=== PATIENT | male | born 1965 | race Caucasian/White ===

== ENCOUNTER → 2017-07-07 | Outpatient (CLI) | payer MEDICAID | LOC: CARD 13:53 | PROVIDERS: ATTEND Internal Medicine Cardiovascular Disease | DX: I48.91 Unspecified atrial fibrillation (principal) | CPT/HCPCS: 93306 ==

== ENCOUNTER → 2017-08-04 | Outpatient (CLI) | payer MEDICAID ==
[~2017-08-04] MED LIST: CATHETER FLUSH 10 ML SYR IV PRN; REGADENOSON 0.4 MG/5 ML SYR (LEXISCAN) IV ONE; RT-ALBUTEROL SULF 2.5 MG/3 ML PRE-MIX VIAL INH ONE
[2017-08-04 09:07] VITALS: BP 120/77
--- NOTE | 2017-08-04 23:36 | STRESS TEST ---
DATE OF SERVICE: 08/04/2017 LEXISCAN MYOVIEW STRESS TEST REPORT INDICATION: Atrial fibrillation. FINDINGS: Baseline heart rate is 64. Baseline EKG is sinus rhythm with normal axis with no ischemic changes. Baseline blood pressure 120/77. In summary, the patient received 10.95 mCi of technetium-99 Myoview and the resting images were obtained. Then, the patient received 0.4 mg of Lexiscan followed by 29.7 mCi of technetium-99 Myoview. Throughout the test, there were no EKG changes. The resting and stress images were reviewed and compared in the short axis, horizontal long axis, and vertical long axis views. Review of the images showed diaphragmatic attenuation with fixed defect involving the inferoapical segment. No significant ischemia was noted. SSS is 4, SDS is zero, TID value 1.05. On the gated images, the left ventricle appeared to be of normal size with normal contractility. Calculated ejection fraction is 64%. CONCLUSION: 1. The patient tolerated Lexiscan well. 2. Diaphragmatic attenuation with typical male pattern with no ischemia or infarction on SPECT images. 3. Normal left ventricular size with normal contractility. Calculated ejection fraction is 64%. Job ID: [id number] DocumentID: [id number] Dictated Date: 08/04/2017 17:20:17 Basin Cleaner Date: 08/04/2017 23:35:51 Dictated By: CRISTHIAN WEBB MD
== END ==
LOC: CARD 07:12
PROVIDERS: ATTEND Internal Medicine Cardiovascular Disease
DX: I48.91 Unspecified atrial fibrillation (principal)
CPT/HCPCS: 78452; 93017; 94640

== ENCOUNTER → 2018-05-24 | Outpatient (CLI) | payer MEDICAID | LOC: RT 11:23 | PROVIDERS: ATTEND Nurse Practitioner Family | DX: G47.33 Obstructive sleep apnea (adult) (pediatric) (principal); R06.00 Dyspnea, unspecified; J44.9 Chronic obstructive pulmonary disease, unspecified; Z72.0 Tobacco use ==

== ENCOUNTER → 2018-06-08 | Outpatient (CLI) | payer MEDICAID ==
[~2018-06-08] MED LIST changes: -CATHETER FLUSH 10 ML SYR IV PRN; -REGADENOSON 0.4 MG/5 ML SYR (LEXISCAN) IV ONE
--- NOTE | 2018-06-08 13:38 | Diagnostic Imaging Report ---
PROCEDURE: CT chest without contrast. TECHNIQUE: Multiple contiguous axial images were obtained through the chest without the use of intravenous contrast. INDICATION: Difficulty breathing and tobaccoism. COMPARISON: No prior studies are available for comparison. FINDINGS: Mediastinal and hilar evaluation is limited without intravenous contrast but no gross abnormality is seen. No pericardial or pleural fluid is detected. The central airways are patent. No parenchymal mass, nodule or infiltrate is seen. There is some scarring or subsegmental atelectasis in the lingula. The upper abdomen is unremarkable. The bony structures are not acute. IMPRESSION: Unremarkable noncontrast CT of the chest. Dictated by: Dictated on workstation # [id number]
== END ==
LOC: RAD 12:12
PROVIDERS: ATTEND Nurse Practitioner Family
DX: J44.9 Chronic obstructive pulmonary disease, unspecified (principal); G47.33 Obstructive sleep apnea (adult) (pediatric); Z72.0 Tobacco use
CPT/HCPCS: 71250; 94010; 94060; 94726; 94729

== ENCOUNTER 2018-06-14 21:00 | Outpatient (CLI) | payer MEDICAID ==
[2018-05-24 11:48] LABS: ABG BASE EXCESS 1.3 MMOL/L (-2.5-2.5); ABG OXYGEN SATURATION 97 % (94-100); ABG PCO2 36 MMHG (35-45); ABG PH 7.45 (7.37-7.43); ABG PO2 77 MMHG (79-93); ABG TCO2 26.3 MMOL/L (21.0-31.0)
[2018-05-24 11:53] LABS: ALLENS TEST YES-POS; INSPIRED O2 RA; PATIENT TEMP 96.9; VENTILATOR NO
== END 2018-06-15 07:00 | disposition home or self-care (01) ==
LOC: SLEEP 21:00
PROVIDERS: ATTEND Nurse Practitioner Family
DX: G47.33 Obstructive sleep apnea (adult) (pediatric) (principal); R06.00 Dyspnea, unspecified; J44.9 Chronic obstructive pulmonary disease, unspecified; Z72.0 Tobacco use
CPT/HCPCS: 82805; 95810

== ENCOUNTER 2018-06-24 07:48 | Outpatient (CLI) | payer MEDICAID ==
[~2018-06-24] VITALS: Ht 182.9 cm; Wt 101.6 kg
[2018-06-24] MEDS ORDERED: ALB0.5V INH (11:43)
[2018-06-24] MEDS ORDERED: METO-333 PO (11:43)
[2018-06-24] MEDS ORDERED: MELO7.5T46 PO (11:43)
[2018-06-24] MEDS ORDERED: RT-ALBUINH IH (11:43)
[2018-06-24] MEDS ORDERED: FOLI1TAB24 PO (11:43)
[2018-06-24] MEDS ORDERED: APIX5TAB PO (11:43)
[2018-06-24] MEDS ORDERED: ATOR20TA66 PO (11:43)
[2018-06-24] MEDS ORDERED: FLUT1DIS26 IH (11:43)
[2018-06-24] MEDS ORDERED: NICO1PAT34 TD (11:43)
== END 2018-06-24 11:45 | disposition home or self-care (01) ==
LOC: PREOP 07:48
PROVIDERS: ATTEND Internal Medicine Critical Care Medicine
DX: Z01.818 Encounter for other preprocedural examination (principal)

== ENCOUNTER 2018-06-29 07:48 | Day surgery (SDC) | payer MEDICAID ==
[~2018-06-29] VITALS: Ht 182.9 cm; Wt 101.6 kg
[~2018-06-29 07:48] MED LIST changes: +ALB0.5V INH; +APIX5TAB PO; +ATOR20TA66 PO; +FLUT1DIS26 IH; +FOLI1TAB24 PO; +MELO7.5T46 PO; +METO-333 PO; +NICO1PAT34 TD; +RT-ALBUINH IH; -RT-ALBUTEROL SULF 2.5 MG/3 ML PRE-MIX VIAL INH ONE
[2018-06-29] MEDS ORDERED: LIDOCAINE JELLY 2% (XYLOCAINE) 30 ML TUBE TOP ONE (07:49)
[2018-06-29] MEDS ORDERED: LIDOCAINE PF 2% 5 ML (XYLOCAINE) VIAL INJ ONE (07:49)
[2018-06-29] MEDS ORDERED: LIDOCAINE PF 1% 2 ML VIAL (OR ONLY) IJ ONE (07:49)
[2018-06-29] MEDS ORDERED: LACTATED RINGERS 1,000 ML IV ONE (07:50)
[2018-06-29] MEDS ORDERED: LACTATED RINGERS 1,000 ML IV STA (08:25)
[2018-06-29] MEDS ORDERED: fentaNYL INJECTION 100 MCG/2 ML AMP IVP ONE (08:30)
[2018-06-29] MEDS ORDERED: MIDAZOLAM 2 MG/2 ML (VERSED) VIAL IVP ONE (08:30)
[2018-06-29 08:32] VITALS: BP 130/81
[2018-06-29] MEDS ORDERED: MIDAZOLAM 2 MG/2 ML (VERSED) VIAL ONE ×4 (08:35)
[2018-06-29] MEDS ORDERED: fentaNYL INJECTION 100 MCG/2 ML AMP ONE ×2 (08:36)
--- NOTE | 2018-06-29 08:37 | Progress Note-Pre Operative ---
Pre-Operative Progress Note H&P Reviewed The H&P was reviewed, patient examined and no changes noted. Date Seen by Provider: Jun 29, 2018 Time Seen by Provider: 08:37 Date H&P Reviewed: Jun 29, 2018 Time H&P Reviewed: 08:37 Pre-Operative Diagnosis: infiltrate. AMADEO AMIN DO Jun 29, 2018 08:37
--- NOTE | 2018-06-29 08:38 | Progress Note-Pre Operative ---
Pre-Operative Progress Note H&P Reviewed The H&P was reviewed, patient examined and no changes noted. Time Seen by Provider: 08:38 Date H&P Reviewed: Jun 29, 2018 Time H&P Reviewed: 08:37 Pre-Operative Diagnosis: infiltrate AMADEO AMIN DO Jun 29, 2018 08:38
--- NOTE | 2018-06-29 08:39 | Pulmonary Procedures ---
Pulmonary Procedures Date of Procedure Date of Service: Jun 29, 2018 Bronch Bronchoscopy with fluoroscopy bronchoalveolar lavage (BAL), transbronchial washes and, transbronchial brushes. Preop DX Hemoptysis Postop DX: No endobronchial mass noted. No signs of hemoptysis. Complications: none After informed consent obtained and formal time out pt was sedated using Fentanyl and Versed. Bronchoscope was advanced through the nare and vocal cords. 1% lidocaine was used to anesthetize vocal cords, epiglottis, hortensia, and left/right main stem bronchus. An anatomical tour was undertaken down to the segmental bronchi bilaterally. No endobronchial lesions noted.with fluoroscopy bronchoalveolar lavage (BAL), transbronchial washes and, transbronchial brushes. Pt tolerated procedure well. No complications noted. Stat CXR is pending. AMADEO AMIN DO Jun 29, 2018 08:38
--- OUTSIDE RECORDS SUMMARY | 2018-06-29 08:58 | XMS REPORT ---
Author Author MAITE PALMER Organization [facility] Address [address] [place] [address] Care Team Providers Care Data Clerk Name Role Phone MAITE PALMER Unavailable PROBLEMS Type Condition ICD9-CM Code CNA86-OY Code Onset Dates Condition Status SNOMED Code Problem Dependence on other enabling machines and devices Z99.89 Active 576890540 Problem Essential hypertension I10 Active 07820670 Problem Coronary artery disease involving craig coronary artery of craig heart without angina pectoris I25.10 Active 8260115022623 Problem Pulmonary nodules R91.8 Active 381070450 Problem Obstructive sleep apnea (adult) (pediatric) G47.33 Active 57320209 Problem Mucopurulent chronic bronchitis J41.1 Active 78023732 Problem Tobacco abuse Z72.0 Active 740205190 Problem Mixed hyperlipidemia E78.2 Active 557414411 Problem Other chronic pain G89.29 Active 01055312 Problem Prediabetes R73.03 Active 313454303 Problem Atrial fibrillation, unspecified type I48.91 Active 80770101 Problem Cervicalgia M54.2 Active 50356202 Problem Dorsalgia, unspecified M54.9 Active 904444980 ALLERGIES No Information ENCOUNTERS Encounter Location Date Diagnosis [place] [id number] [place] [address]20[address] Apr, Atypical pigmented skin lesion L81.9 [facility] [id number] [place] [address] 60[address] 2060 Apr, [place] [id number] [place] [address] 64789- 0489 Apr, Essential hypertension I10 ; Mucopurulent chronic bronchitis J41.1 ; Coronary artery disease involving craig coronary artery of craig heart without angina pectoris I25.10 ; Mixed hyperlipidemia E78.2 ; Bilateral impacted cerumen H61.23 ; Atypical pigmented skin lesion L81.9 and Encounter for immunization Z23 [facility] [id number] [place] [address] 32465- 6128 Apr, Atrial fibrillation, unspecified type I48.91 ; Obstructive sleep apnea (adult) (pediatric) G47.33 ; Mixed hyperlipidemia E78.2 and Coronary artery disease involving craig coronary artery of craig heart without angina pectoris I25.10 [facility] [id number] [place] [address] 60203- 8795 Apr, [facility] [id number] [place] [address] 34898- 8403 November, [facility] [id number] [place] [address] 36011- 5476 November, [facility] [id number] [place] [address] 69925- 1215 November, [facility] [id number] [place] [address] 59953- 1579 November, [facility] [id number] [place] [address] 27764- 0867 November, [facility] [id number] [place] [address] 63408- 8779 November, [facility] [id number] [place] [address] 56072- 4883 November, Prediabetes R73.03 ; Other chronic pain G89.29 ; Dorsalgia, unspecified M54.9 ; Cervicalgia M54.2 ; Mucopurulent chronic bronchitis J41.1 ; Tobacco abuse Z72.0 ; Coronary artery disease involving craig coronary artery of craig heart without angina pectoris I25.10 and Atrial fibrillation, unspecified type I48.91 [facility] [id number] [place] [address] 64184- 9868 Oct, [facility] [id number] [place] [address] 89297- 8771 Sep, [facility] [address] [address] Aug, [place] [address] [place] [id number] [place] [address] 71765- 0819 Aug, Obstructive sleep apnea (adult) (pediatric) G47.33 ; Coronary artery disease involving craig coronary artery of craig heart without angina pectoris I25.10 ; Tobacco abuse Z72.0 ; Essential hypertension I10 and Pre-diabetes R73.03 [place] [address] [place] [id number] [place] [address] 66519- 2054 Jul, [place] [address] [place] [id number] [place] [address] 65093- 7751 Jul, Encounter for immunization Z23 [place] [id number] [place] [address] 75199- 9229 10 May, 2017 Atrial fibrillation, unspecified type I48.91 ; Chest pain, unspecified type R07.9 ; Coronary artery disease involving craig coronary artery of craig heart without angina pectoris I25.10 and Essential hypertension I10 [place] [address] [address] Mar, Dependence on other enabling machines and devices Z99.89 ; Obstructive sleep apnea (adult) (pediatric) G47.33 ; Mucopurulent chronic bronchitis J41.1 ; Tobacco abuse Z72.0 and Coronary artery disease involving craig coronary artery of craig heart without angina pectoris I25.10 IMMUNIZATIONS No Known Immunizations SOCIAL HISTORY Never Assessed REASON FOR VISIT referral PLAN OF CARE VITAL SIGNS MEDICATIONS No Known Medications RESULTS No Results PROCEDURES No Known procedures INSTRUCTIONS MEDICATIONS ADMINISTERED No Known Medications MEDICAL (GENERAL) HISTORY Type Description Date Medical History Hypertension Medical History Myocardial infarction x5 Medical History Atrial fibrillation Medical History CVA Medical History Hyperlipidemia Medical History Anxiety Medical History COPD Medical History Sleep Apnea Medical History Disc deterioration lumbar spine Medical History Bone spurs cervical spine Medical History Arthritis Medical History Prediabetes Surgical History Appendectomy Surgical History Tonsillectomy Surgical History Heart catheterization Hospitalization History past surgery Hospitalization History Myocardial infarction multiple times Hospitalization History mild cva 2 years ago Hospitalization History COPD exacerbation 2016
--- OUTSIDE RECORDS SUMMARY | 2018-06-29 08:58 | XMS REPORT | CCD ---
Author Author HILARY AMARO Organization Unknown Address [address] [place] [address] Care Team Providers Care Wedger Machine Name Role Phone BRITTNEE OZUNA DO Attphys Allergies Unknown or Not Available. Active Medications Unknown or Not Available. Problems Unknown or Not Available. Procedures Procedure Code Procedure Type Date CT HEAD W/O CONTRAST 782229343 SNOMED CT 02/21/2017 TROPONIN-I ADV 519446037 SNOMED CT 02/21/2017 COMPREHENSIVE METABOLIC PANEL 983322787 SNOMED CT 2016 CBC W/ AUTO DIFF (RFLX MAN DIFF IF IND) 9814776 SNOMED CT 02/21/2017 ^CBC W/AUTO DIFF 0878067 SNOMED CT 02/21/2017 Results COMPREHENSIVE METABOLIC PANEL - Collect Date/Time: 02/21/2017 16:28 Test Name Code Test Result Test Units Test Ref Range GLUCOSE 2345-7 99 MG/DL L=70 H=100 SODIUM 2951-2 140 MEQ/L L=135 H=148 POTASSIUM 2823-3 4.0 MEQ/L L=3.5 H=5.3 CHLORIDE 2075-0 105 MEQ/L L=96 H=110 CO2 2028-9 28 MEQ/L L=22 H=29 BUN 3094-0 10 MG/DL L=8 H=22 CREATININE 2160-0 0.9 MG/DL L=0.6 H=1.6 SGOT/AST 1920-8 19 IU/L L=10 H=40 SGPT/ALT 1742-6 32 IU/L L=8 H=54 ALK PHOS 6768-6 74 IU/L L=35 H=115 TOTAL PROTEIN 2885-2 7.0 G/DL L=5.5 H=8.5 ALBUMIN 1751-7 3.8 G/DL L=3.1 H=5.4 TOTAL BILI 1975-2 0.5 MG/DL L=0.0 H=1.5 CALCIUM 32230-6 8.9 MG/DL L=8.2 H=10.6 AGE 51 yrs GFR NonAA 88 GFR AA 107 eGFR >60 N/A eGFR AA* >60 N/A CBC W/ AUTO DIFF (RFLX MAN DIFF IF IND) - Collect Date/Time: 02/21/2017 16:28 Test Name Code Test Result Test Units Test Ref Range WBC 73076-0 7.1 TH/CMM L=4.5 H=10.8 RBC 789-8 5.25 ML/CMM L=4.70 H=6.10 HGB 718-7 16.0 G/DL L=14.0 H=18.0 HCT 4544-3 47.5 % L=42.0 H=52.0 MCV 91 FL L=81 H=99 MCH 30.5 PG L=27.0 H=33.0 MCHC 33.7 G/DL L=31.0 H=36.0 RDW SD 43 FL L=36 H=50 RDW CV 13.0 % L=0.0 H=14.8 MPV 8.8 FL L=9.3 H=12.5 PLT 777-3 281 TH/CMM L=130 H=440 NRBC# 0.00 TH/CMM L=0.00 H=0.00 NRBC% 0.0 /100WBC L=0.0 H=2.0 %NEUT 63.6 % %LYMP 23.5 % %MONO 8.9 % %EOS 3.5 % %BASO 0.4 % #NEUT 4.52 TH/CMM L=2.10 H=8.20 #LYMP 1.67 TH/CMM L=0.90 H=5.20 #MONO 0.63 TH/CMM L=0.16 H=1.00 #EOS 0.25 TH/CMM L=0.00 H=0.80 #BASO 0.03 TH/CMM L=0.00 H=0.20 MANUAL DIFF NOT IND N/A TROPONIN-I ADV - Collect Date/Time: 02/21/2017 16:28 Test Name Code Test Result Test Units [place] [address]-0 <0.04 ng/mL L=0.04 H= 0.40 Encounters Encounter Diagnosis Diagnosis Code Start Date Epistaxis R040 02/21/2017 Function Status Unknown or Not Available. History of Immunizations Unknown or Not Available. Plan of Treatment Unknown or Not Available. Social History Smoking Status Code Start Date End Date Current every day smoker 241777061 Vital Signs Unknown or Not Available. Function Status Unknown or Not Available. Goals Unknown or Not Available. ASSESSMENTS Unknown or Not Available. Health Concerns Section Unknown or Not Available.
--- OUTSIDE RECORDS SUMMARY | 2018-06-29 08:58 | XMS REPORT ---
Author Author MAITE PALMER Organization [facility] Address [address] [place] [address] Care Team Providers Care Cut Out Worker Name Role Phone MAITE PALMER Unavailable PROBLEMS Type Condition ICD9-CM Code [id number] Code Onset Dates Condition Status SNOMED Code Problem Dependence on other enabling machines and devices Z99.89 Active 810308617 Problem Essential hypertension I10 Active 51128742 Problem Coronary artery disease involving shoshone-paiute coronary artery of shoshone-paiute heart without angina pectoris I25.10 Active 5747389301844 Problem Pulmonary nodules R91.8 Active 747326757 Problem Obstructive sleep apnea (adult) (pediatric) G47.33 Active 03147179 Problem Mucopurulent chronic bronchitis J41.1 Active 34492593 Problem Tobacco abuse Z72.0 Active 926001655 Problem Mixed hyperlipidemia E78.2 Active 061045504 Problem Other chronic pain G89.29 Active 91461059 Problem Prediabetes R73.03 Active 466360984 Problem Atrial fibrillation, unspecified type I48.91 Active 98340808 Problem Cervicalgia M54.2 Active 36398716 Problem Dorsalgia, unspecified M54.9 Active 726030040 ALLERGIES Substance Reaction Event Type Date Status Penicillin V Potassium Unknown Drug Allergy Apr, Active Morphine Sulfate Unknown Drug Allergy Apr, Active Aspirin swelling Drug Allergy Apr, Active Bee stings Unknown Non Drug Allergy Apr, Active lemon Unknown Non Drug Allergy Apr, Active ENCOUNTERS Encounter Location Date Diagnosis [facility] [address] [facility] [id number] [address] Apr, Atypical pigmented skin lesion L81.9 [facility] [address] [id number] [address] Apr, [facility] [id number] [address] Apr, Essential hypertension I10 ; Mucopurulent chronic bronchitis J41.1 ; Coronary artery disease involving shoshone-paiute coronary artery of shoshone-paiute heart without angina pectoris I25.10 ; Mixed hyperlipidemia E78.2 ; Bilateral impacted cerumen H61.23 ; Atypical pigmented skin lesion L81.9 and Encounter for immunization Z23 [facility] [id number] [place] [address] 55237- 495[address] 18 Apr, 2018 Atrial fibrillation, unspecified type I48.91 ; Obstructive sleep apnea (adult) (pediatric) G47.33 ; Mixed hyperlipidemia E78.2 and Coronary artery disease involving shoshone-paiute coronary artery of shoshone-paiute heart without angina pectoris I25.10 [facility] [id number] [place] [address] 06104- 4612 Apr, [facility] [id number] [place] [address] 77043- 5391 November, [facility] [id number] [place] [address] 47152- 3106 November, [facility] [id number] [place] [address] 36997- 8981 November, [facility] [id number] [place] [address] 34170- 8208 November, [facility] [id number] [place] [address] 00321- 7891 November, [facility] [id number] [place] [address] 43468- 5744 November, [facility] [id number] [place] [address] 85071- 9501 November, Prediabetes R73.03 ; Other chronic pain G89.29 ; Dorsalgia, unspecified M54.9 ; Cervicalgia M54.2 ; Mucopurulent chronic bronchitis J41.1 ; Tobacco abuse Z72.0 ; Coronary artery disease involving shoshone-paiute coronary artery of shoshone-paiute heart without angina pectoris I25.10 and Atrial fibrillation, unspecified type I48.91 [facility] [id number] [address] Oct, [place] [address] [id number] [place] [address] 99313- 0554 Sep, [place] [address] [address] [id number] [place] [address] 70317- 6117 Aug, [place] [address] [address] [id number] [place] [address] 63693- 5807 Aug, Obstructive sleep apnea (adult) (pediatric) G47.33 ; Coronary artery disease involving shoshone-paiute coronary artery of shoshone-paiute heart without angina pectoris I25.10 ; Tobacco abuse Z72.0 ; Essential hypertension I10 and Pre-diabetes R73.03 [place] [id number] [place] [address] 90[address]- [address] Jul, [place] [address] [address] [id number] [place] [address] 33841- 7222 Jul, Encounter for immunization Z23 [place] [address] [address] [id number] [place] [address] 16418- 1190 10 May, 2017 Atrial fibrillation, unspecified type I48.91 ; Chest pain, unspecified type R07.9 ; Coronary artery disease involving shoshone-paiute coronary artery of shoshone-paiute heart without angina pectoris I25.10 and Essential hypertension I10 [place] [address] [id number] [place] [address] 38715- 1630 06 Mar, 2017 Dependence on other enabling machines and devices Z99.89 ; Obstructive sleep apnea (adult) (pediatric) G47.33 ; Mucopurulent chronic bronchitis J41.1 ; Tobacco abuse Z72.0 and Coronary artery disease involving shoshone-paiute coronary artery of shoshone-paiute heart without angina pectoris I25.10 IMMUNIZATIONS No Known Immunizations SOCIAL HISTORY Never Assessed REASON FOR VISIT 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 PLAN OF CARE Activity Details Follow Up 1 Week with Saul for suture removal Reason: Pending Test PATHOLOGY REPORT VITAL SIGNS Height 72 in 2018-05-24 Weight 221.0 lbs 2018-05-24 Temperature 97.9 degrees Fahrenheit 2018-05-24 Heart Rate 78 bpm 2018-05-24 Respiratory Rate 18 2018-05-24 BMI 29.97 kg/m2 2018-05-24 Blood pressure systolic 116 mmHg 2018-05-24 Blood pressure diastolic 76 mmHg 2018-05-24 MEDICATIONS Medication Instructions Dosage Frequency Start Date End Date Duration Status Clopidogrel Bisulfate 75 MG Orally Once a day 1 tablet 24h Active Albuterol Sulfate (2.5 MG/3ML) 0.083% Inhalation 2 times a day 3 ml 12h Active Lisinopril 10 mg Orally Once a day 1 tablet 24h Active HydrOXYzine HCl 25 MG Orally every 8 hrs 1 tablet as needed 8h Active Proventil HFA 108 (90 Base) MCG/ACT Inhalation every 4 hrs 2 puffs as needed 4h 17 Active Atorvastatin Calcium 40 mg Orally Once a day 1 tablet 24h November, 30 day(s) Active Stiolto Respimat 2.5-2.5 MCG/ACT Inhalation Once a day 2 puffs 24h Active Nitroglycerin 0.4 MG DISSOLVE ONE TABLET UNDER TONGUE EVERY 5 MINUTES NEEDED FOR CHEST PAIN. DO NOT EXCEED A TOTAL OF 3 DOSES IN 15 MINUTES. 8 Active Folic Acid 1 MG Orally Once a day 1 tablet 24h Active Metoprolol Tartrate 25 MG TAKE ONE TABLET BY MOUTH TWICE DAILY WITH FOOD 90 Active Mobic 7.5 mg Orally Once a day 1 tablet 24h 30 Active Vitamin B-1 100 mg Orally Once a day 1 tablet 24h Active Pantoprazole Sodium 40 MG Orally Once a day 1 tablet 24h Active Ipratropium-Albuterol 0.5-2.5 (3) MG/3ML Inhalation every 6 hrs 3 ml 6h 8 Active Asmanex HFA 200 MCG/ACT Inhalation Twice a day 2 puffs 12h Active Eliquis 5 mg Orally twice daily 1 tablet 30 Active RESULTS No Results PROCEDURES Procedure Date Ordered Result Body Site BIOPSY OF SKIN LESION May 24, 2018 INSTRUCTIONS MEDICATIONS ADMINISTERED No Known Medications MEDICAL [...]
--- OUTSIDE RECORDS SUMMARY | 2018-06-29 08:58 | XMS REPORT ---
Author Author MAITE PALMER Organization [facility] Address [address] [place] [address] Care Team Providers Care Telegraph Service Rater Name Role Phone MAITE PALMER Unavailable PROBLEMS Type Condition ICD9-CM Code ZUN31-KP Code Onset Dates Condition Status SNOMED Code Problem Dependence on other enabling machines and devices Z99.89 Active 762737601 Problem Coronary artery disease involving [place] si[place] coronary artery of assin[place] and sioux heart without angina pectoris I25.10 Active 4238217934160 Problem Mucopurulent chronic bronchitis J41.1 Active 37974318 Problem Pulmonary nodules R91.8 Active 786962916 Problem Obstructive sleep apnea (adult) (pediatric) G47.33 Active 75404276 Problem Tobacco abuse Z72.0 Active 029583057 Problem Cervicalgia M54.2 Active 73239216 Problem Dorsalgia, unspecified M54.9 Active 196000677 Problem Atrial fibrillation, unspecified type I48.91 Active 48898351 Problem Essential hypertension I10 Active 16870377 Problem Other chronic pain G89.29 Active 46910745 Problem Prediabetes R73.03 Active 722365642 ALLERGIES No Information ENCOUNTERS Encounter Location Date Diagnosis [facility] [id number] [address] Apr, [facility] [address], [place] [address] Apr, [facility] [address], [place] [address] November, [facility] [address], [place] [address] November, [facility] [id number], [place] [address] November, [facility] [id number], [place] [address] November, [facility] [id number] [place] [address] 94302- 6857 November, [facility] [id number] [place] [address] 71891- 3833 November, [place] [id number] [place] [address] 20034- 7648 November, Prediabetes R73.03 ; Other chronic pain G89.29 ; Dorsalgia, unspecified M54.9 ; Cervicalgia M54.2 ; Mucopurulent chronic bronchitis J41.1 ; Tobacco abuse Z72.0 ; Coronary artery disease involving [place] and si[place] coronary artery of assin[place] and sioux heart without angina pectoris I25.10 and Atrial fibrillation, unspecified type I48.91 [place] [id number] [place] [address] 71768- 3999 Oct, [place] [id number] [place] [address] 21987- 4717 Sep, [place] [id number] [place] [address] 20306- 9907 Aug, [place] [id number] [place] [address] 68655- 8956 Aug, Obstructive sleep apnea (adult) (pediatric) G47.33 ; Coronary artery disease involving [place] coronary artery of [place] and sioux heart without angina pectoris I25.10 ; Tobacco abuse Z72.0 ; Essential hypertension I10 and Pre-diabetes R73.03 [place] [id number] [place] [address] 14508- 6085 Jul, [place] [id number] [place] [address] 92010- 2403 Jul, Encounter for immunization Z23 [place] [id number] [place] [address] 29957- 8986 May, Atrial fibrillation, unspecified type I48.91 ; Chest pain, unspecified type R07.9 ; Coronary artery disease involving [place] si[place] coronary artery of assin[place] and sioux heart without angina pectoris I25.10 and Essential hypertension I10 [facility] [address] [facility] [id number] [place] [address] Mar, Dependence on other enabling machines and devices Z99.89 ; Obstructive sleep apnea (adult) (pediatric) G47.33 ; Mucopurulent chronic bronchitis J41.1 ; Tobacco abuse Z72.0 and Coronary artery disease involving [place] and si[place] coronary artery of assin[place] and sioux heart without angina pectoris I25.10 IMMUNIZATIONS No Known Immunizations SOCIAL HISTORY Never Assessed REASON FOR VISIT Refill Request PLAN OF CARE VITAL SIGNS MEDICATIONS Medication Instructions Dosage Frequency Start Date End Date Duration Status Mobic 7.5 mg Orally Once a day 1 tablet 24h 30 Active Ipratropium-Albuterol 0.5-2.5 (3) MG/3ML Inhalation every 6 hrs 3 ml 6h 8 Active RESULTS No Results PROCEDURES No Known procedures [...]
--- OUTSIDE RECORDS SUMMARY | 2018-06-29 08:58 | XMS REPORT ---
Author Author MAITE PALMER Organization [facility] [place] Address [address] [place] [address] Care Team Providers Care Weapons Officer [employer] Name Role Phone MAITE PALMER Unavailable PROBLEMS Type Condition ICD9-CM Code GRX27-SQ Code Onset Dates Condition Status SNOMED Code Problem Dependence on other enabling machines and devices Z99.89 Active 545536626 Problem Essential hypertension I10 Active 97735027 Problem Coronary artery disease involving [place] coronary artery of [place] heart without angina pectoris I25.10 Active 6766880157413 Problem Pulmonary nodules R91.8 Active 602628697 Problem Obstructive sleep apnea (adult) (pediatric) G47.33 Active 42358874 Problem Mucopurulent chronic bronchitis J41.1 Active 81838974 Problem Tobacco abuse Z72.0 Active 681351120 Problem Mixed hyperlipidemia E78.2 Active 860923599 Problem Other chronic pain G89.29 Active 88189961 Problem Prediabetes R73.03 Active 717097166 Problem Atrial fibrillation, unspecified type I48.91 Active 57731108 Problem Cervicalgia M54.2 Active 95245374 Problem Dorsalgia, unspecified M54.9 Active 725388819 ALLERGIES No Information ENCOUNTERS Encounter Location Date Diagnosis [facility] [place] [id number] [place] [address] 30941- 0654 May, [facility] [place] [id number] [place] [address] 01375- 3906 Apr, Atypical pigmented skin lesion L81.9 [facility] [place] [id number] [place] [address] 52304- 8443 Apr, [facility] [place] [id number], [place] [address] Apr, Essential hypertension I10 ; Mucopurulent chronic bronchitis J41.1 ; Coronary artery disease involving [place] coronary artery of [place] heart without angina pectoris I25.10 ; Mixed hyperlipidemia E78.2 ; Bilateral impacted cerumen H61.23 ; Atypical pigmented skin lesion L81.9 and Encounter for immunization Z23 [facility] [place] [id number] [place] [address] 91613- 3615 Apr, Atrial fibrillation, unspecified type I48.91 ; Obstructive sleep apnea (adult) (pediatric) G47.33 ; Mixed hyperlipidemia E78.2 and Coronary artery disease involving [place] coronary artery of [place] heart without angina pectoris I25.10 [facility] [place] [id number] [place] [address] 30980- 4981 Apr, [facility] [place] [id number] [place] [address] 23303- 0683 November, [facility] [place] [id number] [place] [address] 58606- 9157 November, [facility] [place] [id number] [place] [address] 80438- 1175 November, [facility] [place] [id number] [place] [address] 60992- 9599 November, [facility] [place] [id number] [place] [address] 27607- 9280 November, [facility] [place] [id number] [place] [address] 35551- 4013 November, [facility] [place] [id number] [place] [address] 53163- 7438 November, Prediabetes R73.03 ; Other chronic pain G89.29 ; Dorsalgia, unspecified M54.9 ; Cervicalgia M54.2 ; Mucopurulent chronic bronchitis J41.1 ; Tobacco abuse Z72.0 ; Coronary artery disease involving [place] coronary artery of [place] heart without angina pectoris I25.10 and Atrial fibrillation, unspecified type I48.91 [facility] [place] [id number] [place] [address] 02295- 1986 Oct, [facility] [place] [address] [place] [address] 96355- 7748 Sep, [place] [id number] [place] [address] 85616- 4309 Aug, [place] [id number] [place] [address] 17651- 4488 Aug, Obstructive sleep apnea (adult) (pediatric) G47.33 ; Coronary artery disease involving [place] coronary artery of [place] heart without angina pectoris I25.10 ; Tobacco abuse Z72.0 ; Essential hypertension I10 and Pre-diabetes R73.[address] [address]807- 5318 Jul, [place] [id number] [place] [address] 08166- 2917 Jul, Encounter for immunization Z23 [address] 22[address]- 7559 10 May, 2017 Atrial fibrillation, unspecified type I48.91 ; Chest pain, unspecified type R07.9 ; Coronary artery disease involving [place] coronary artery of [place] heart without angina pectoris I25.10 and Essential hypertension I10 [address] [id number] [place] [address] 71461- 3146 06 Mar, 2017 Dependence on other enabling machines and devices Z99.89 ; Obstructive sleep apnea (adult) (pediatric) G47.33 ; Mucopurulent chronic bronchitis J41.1 ; Tobacco abuse Z72.0 and Coronary artery disease involving [place] coronary artery of [place] heart without angina pectoris I25.10 IMMUNIZATIONS No Known Immunizations SOCIAL HISTORY Never Assessed REASON FOR VISIT suture removal- did not remove sutures due to them already falling out. Cleaned area and let pt go. BRENDA Starkey PLAN OF CARE VITAL SIGNS MEDICATIONS Medication Instructions Dosage Frequency Start Date End Date Duration Status Atorvastatin Calcium 40 mg Orally Once a day 1 tablet 24h November, 30 day(s) Unknown Albuterol Sulfate (2.5 MG/3ML) 0.083% Inhalation 2 times a day 3 ml 12h Unknown Asmanex HFA 200 MCG/ACT Inhalation Twice a day 2 puffs 12h Unknown Stiolto Respimat 2.5-2.5 MCG/ACT Inhalation Once a day 2 puffs 24h Unknown Lisinopril 10 mg Orally Once a day 1 tablet 24h Unknown Metoprolol Tartrate 25 MG TAKE ONE TABLET BY MOUTH TWICE DAILY WITH FOOD 90 Unknown Eliquis 5 mg Orally twice daily 1 tablet 30 Unknown Vitamin B-1 100 mg Orally Once a day 1 tablet 24h Unknown HydrOXYzine HCl 25 MG Orally every 8 hrs 1 tablet as needed 8h Unknown Folic Acid 1 MG Orally Once a day 1 tablet 24h Unknown Mobic 7.5 mg Orally Once a day 1 tablet 24h 30 Unknown Clopidogrel Bisulfate 75 MG Orally Once a day 1 tablet 24h Unknown Pantoprazole Sodium 40 MG Orally Once a day 1 tablet 24h Unknown Nitroglycerin 0.4 MG DISSOLVE ONE TABLET UNDER TONGUE EVERY 5 MINUTES NEEDED FOR CHEST PAIN. DO NOT EXCEED A TOTAL OF 3 DOSES IN 15 MINUTES. 8 Unknown Ipratropium-Albuterol 0.5-2.5 (3) MG/3ML Inhalation every 6 hrs 3 ml 6h 8 Unknown Proventil HFA 108 (90 Base) MCG/ACT Inhalation every 4 hrs 2 puffs as needed 4h 17 Unknown RESULTS No Results PROCEDURES No Known procedures [...]
--- OUTSIDE RECORDS SUMMARY | 2018-06-29 08:59 | XMS REPORT ---
Author Author MAITE PALMER Organization [facility] Address [address] [place] [address] Care Team Providers Care Brigadier Name Role Phone MAITE PALMER Unavailable PROBLEMS Type Condition ICD9-CM Code QQO81-LY Code Onset Dates Condition Status SNOMED Code Problem Dependence on other enabling machines and devices Z99.89 Active 641428176 Problem Coronary artery disease involving [place] coronary artery of [place] heart without angina pectoris I25.10 Active 2865886658033 Problem Mucopurulent chronic bronchitis J41.1 Active 76128554 Problem Pulmonary nodules R91.8 Active 396214885 Problem Obstructive sleep apnea (adult) (pediatric) G47.33 Active 62593829 Problem Tobacco abuse Z72.0 Active 973001848 Problem Cervicalgia M54.2 Active 98309614 Problem Dorsalgia, unspecified M54.9 Active 900806258 Problem Atrial fibrillation, unspecified type I48.91 Active 12342286 Problem Essential hypertension I10 Active 45447788 Problem Other chronic pain G89.29 Active 20777189 Problem Prediabetes R73.03 Active 796352435 ALLERGIES No Information ENCOUNTERS Encounter Location Date Diagnosis [facility] [id number] [address]- 5[address] November, [facility] [address] [place] [address] 52243- 0460 November, [facility] [address] [address]- 0158 November, [facility] [address] [address]- 2353 November, [facility] [id number] [address]- 8194 November, [facility] [id number] [place] [address] 78177- 0851 November, [place] [id number] [place] [address] 76379- 2014 November, Prediabetes R73.03 ; Other chronic pain G89.29 ; Dorsalgia, unspecified M54.9 ; Cervicalgia M54.2 ; Mucopurulent chronic bronchitis J41.1 ; Tobacco abuse Z72.0 ; Coronary artery disease involving [place] coronary artery of [place] heart without angina pectoris I25.10 and Atrial fibrillation, unspecified type I48.91 [place] [id number] [place] [address] 77919- 8581 Oct, [place] [address] 70314- 8841 Sep, [place] [id number] [place] [address] 55529- 5787 Aug, [place] [id number] [place] [address] 13099- 1283 Aug, Obstructive sleep apnea (adult) (pediatric) G47.33 ; Coronary artery disease involving [place] coronary artery of [place] heart without angina pectoris I25.10 ; Tobacco abuse Z72.0 ; Essential hypertension I10 and Pre-diabetes R73.03 [place] [id number] [place] [address] 87708- 7762 Jul, [place] [id number] [place] [address] 21406- 5925 Jul, Encounter for immunization Z23 [place] [id number] [place] [address] 94232- 8977 May, Atrial fibrillation, unspecified type I48.91 ; Chest pain, unspecified type R07.9 ; Coronary artery disease involving [place] coronary artery of [place] heart without angina pectoris I25.10 and Essential hypertension I10 [place] [id number] [place] [address] 35608- 3010 Mar, Dependence on other enabling machines and devices Z99.89 ; Obstructive sleep apnea (adult) (pediatric) G47.33 ; Mucopurulent chronic bronchitis J41.1 ; Tobacco abuse Z72.0 and Coronary artery disease involving [place] coronary artery of [place] heart without angina pectoris I25.10 IMMUNIZATIONS No Known Immunizations SOCIAL HISTORY Never Assessed REASON FOR VISIT Refill request PLAN OF CARE VITAL SIGNS MEDICATIONS Medication Instructions Dosage Frequency Start Date End Date Duration Status Albuterol Sulfate (2.5 MG/3ML) 0.083% Inhalation 2 times a day 3 ml 12h Active RESULTS No Results PROCEDURES No Known [...]
--- OUTSIDE RECORDS SUMMARY | 2018-06-29 08:59 | XMS REPORT ---
Author Author MAITE PALMER Organization [facility] Address [address] [place] [address] Care Team Providers Care Sales Demonstrator Name Role Phone MAITE PALMER Unavailable PROBLEMS Type Condition ICD9-CM Code TJV26-CG Code Onset Dates Condition Status SNOMED Code Problem Dependence on other enabling machines and devices Z99.89 Active 573601239 Problem Coronary artery disease involving [place] coronary artery of [place] heart without angina pectoris I25.10 Active 7110131616454 Problem Mucopurulent chronic bronchitis J41.1 Active 30481334 Problem Pulmonary nodules R91.8 Active 603357282 Problem Obstructive sleep apnea (adult) (pediatric) G47.33 Active 87801592 Problem Tobacco abuse Z72.0 Active 268368905 Problem Cervicalgia M54.2 Active 23266154 Problem Dorsalgia, unspecified M54.9 Active 116159748 Problem Atrial fibrillation, unspecified type I48.91 Active 68953033 Problem Essential hypertension I10 Active 26172156 Problem Other chronic pain G89.29 Active 29749783 Problem Prediabetes R73.03 Active 106393603 ALLERGIES No Information ENCOUNTERS Encounter Location Date Diagnosis [facility] [id number], [place] [address]- 0[address] November, [facility] [address] [place] [address] 21326- 0585 November, [facility] [address], [place] [address]- 0197 November, [facility] [address], [place] [address]- 8382 November, [facility] [id number], [place] [address]- 9808 November, [facility] [id number] [place] [address] 38132- 0114 November, [place] [id number] [place] [address] 25538- 4439 November, Prediabetes R73.03 ; Other chronic pain G89.29 ; Dorsalgia, unspecified M54.9 ; Cervicalgia M54.2 ; Mucopurulent chronic bronchitis J41.1 ; Tobacco abuse Z72.0 ; Coronary artery disease involving [place] coronary artery of [place] heart without angina pectoris I25.10 and Atrial fibrillation, unspecified type I48.91 [place] [id number] [place] [address] 51479- 7518 Oct, [place] [address] 84715- 3271 Sep, [place] [id number] [place] [address] 07380- 0103 Aug, [place] [id number] [place] [address] 52403- 7058 Aug, Obstructive sleep apnea (adult) (pediatric) G47.33 ; Coronary artery disease involving [place] coronary artery of [place] heart without angina pectoris I25.10 ; Tobacco abuse Z72.0 ; Essential hypertension I10 and Pre-diabetes R73.03 [place] [id number] [place] [address] 74385- 8960 Jul, [place] [id number] [place] [address] 12879- 7216 Jul, Encounter for immunization Z23 [place] [id number] [place] [address] 38127- 1706 May, Atrial fibrillation, unspecified type I48.91 ; Chest pain, unspecified type R07.9 ; Coronary artery disease involving [place] coronary artery of [place] heart without angina pectoris I25.10 and Essential hypertension I10 [place] [id number] [place] [address] 36797- 4926 Mar, Dependence on other enabling machines and devices Z99.89 ; Obstructive sleep apnea (adult) (pediatric) G47.33 ; Mucopurulent chronic bronchitis J41.1 ; Tobacco abuse Z72.0 and Coronary artery disease involving [place] coronary artery of [place] heart without angina pectoris I25.10 IMMUNIZATIONS No Known Immunizations SOCIAL HISTORY Never Assessed REASON FOR VISIT refills PLAN OF CARE VITAL SIGNS MEDICATIONS Medication Instructions Dosage Frequency Start Date End Date Duration Status Atorvastatin Calcium 20 mg Orally Once a day 1 tablet 24h Active Vitamin B-1 100 mg Orally Once a day 1 tablet 24h Active Nitroglycerin 0.4 MG Sublingual Once a day 1 tablet at onset of chest pain every 5 minutes -max of 3 24h Active Tramadol HCl 50 mg Orally 3 times a day 1 tablet as needed 8h Active Folic Acid 1 MG Orally Once a day 1 tablet 24h Active Lisinopril 10 mg Orally Once a day 1 tablet 24h Active Metoprolol Tartrate 25 MG Orally Twice a day 1 tablet with food 12h Active RESULTS No Results PROCEDURES No [...]
--- OUTSIDE RECORDS SUMMARY | 2018-06-29 08:59 | XMS REPORT ---
Author Author MAITE PALMER Organization [facility] Address [address] [place] [address] Care Team Providers Care Hearing Examiner Name Role Phone MAITE PALMER Unavailable PROBLEMS Type Condition ICD9-CM Code AYL37-TT Code Onset Dates Condition Status SNOMED Code Problem Dependence on other enabling machines and devices Z99.89 Active 377443142 Problem Coronary artery disease involving [place] coronary artery of [place] heart without angina pectoris I25.10 Active 9577088246020 Problem Mucopurulent chronic bronchitis J41.1 Active 21652639 Problem Pulmonary nodules R91.8 Active 598302552 Problem Obstructive sleep apnea (adult) (pediatric) G47.33 Active 00890674 Problem Tobacco abuse Z72.0 Active 055591139 Problem Cervicalgia M54.2 Active 71493443 Problem Dorsalgia, unspecified M54.9 Active 872490191 Problem Atrial fibrillation, unspecified type I48.91 Active 60646463 Problem Essential hypertension I10 Active 95920631 Problem Other chronic pain G89.29 Active 56591950 Problem Prediabetes R73.03 Active 953588049 ALLERGIES No Information ENCOUNTERS Encounter Location Date Diagnosis [facility] [id number], [place] [address]- 8482 Mar, [facility] [address], [place] [address]- 5355 November, [facility] [address], [place] [address]- 4754 November, [facility] [address], [place] [address]- 0021 November, [facility] [id number], [place] [address]- 4810 November, [facility] [id number] [place] [address] 90454- 5780 November, [place] [id number] [place] [address] 91708- 4084 November, [place] [id number] [place] [address] 07372- 6554 November, Prediabetes R73.03 ; Other chronic pain G89.29 ; Dorsalgia, unspecified M54.9 ; Cervicalgia M54.2 ; Mucopurulent chronic bronchitis J41.1 ; Tobacco abuse Z72.0 ; Coronary artery disease involving [place] coronary artery of [place] heart without angina pectoris I25.10 and Atrial fibrillation, unspecified type I48.91 [id number] [place] [address] 52326- 1492 Oct, [place] [address] 38573- 7637 Sep, [place] [id number] [place] [address] 45945- 5759 Aug, [place] [id number] [place] [address] 44524- 3528 Aug, Obstructive sleep apnea (adult) (pediatric) G47.33 ; Coronary artery disease involving [place] coronary artery of [place] heart without angina pectoris I25.10 ; Tobacco abuse Z72.0 ; Essential hypertension I10 and Pre-diabetes R73.03 [place] [id number] [place] [address] 04723- 2151 Jul, [place] [id number] [place] [address] 55215- 8050 Jul, Encounter for immunization Z23 [place] [id number] [place] [address] 87868- 9647 May, Atrial fibrillation, unspecified type I48.91 ; Chest pain, unspecified type R07.9 ; Coronary artery disease involving [place] coronary artery of [place] heart without angina pectoris I25.10 and Essential hypertension I10 [address] [id number] [address]- 8326 Mar, Dependence on other enabling machines and devices Z99.89 ; Obstructive sleep apnea (adult) (pediatric) G47.33 ; Mucopurulent chronic bronchitis J41.1 ; Tobacco abuse Z72.0 and Coronary artery disease involving [place] coronary artery of [place] heart without angina pectoris I25.10 IMMUNIZATIONS No Known Immunizations SOCIAL HISTORY Never Assessed REASON FOR VISIT medication refill PLAN OF CARE VITAL SIGNS MEDICATIONS Medication Instructions Dosage Frequency Start Date End Date Duration Status Proventil HFA 108 (90 Base) MCG/ACT Inhalation every 4 hrs 2 puffs as needed 4h 30 days Active RESULTS No Results PROCEDURES No Known [...]
--- OUTSIDE RECORDS SUMMARY | 2018-06-29 08:59 | XMS REPORT ---
Author Author MAITE PALMER Organization [facility] Address [address] [place] [address] Care Team Providers Care Button Buttonhole Marker Name Role Phone MAITE PALMER Unavailable PROBLEMS Type Condition ICD9-CM Code OEX34-EP Code Onset Dates Condition Status SNOMED Code Problem Dependence on other enabling machines and devices Z99.89 Active 643006230 Problem Coronary artery disease involving [place] coronary artery of [place] heart without angina pectoris I25.10 Active 8426768365124 Problem Mucopurulent chronic bronchitis J41.1 Active 21526982 Problem Pulmonary nodules R91.8 Active 724747764 Problem Obstructive sleep apnea (adult) (pediatric) G47.33 Active 64250632 Problem Tobacco abuse Z72.0 Active 800020064 Problem Cervicalgia M54.2 Active 15329756 Problem Dorsalgia, unspecified M54.9 Active 958492814 Problem Atrial fibrillation, unspecified type I48.91 Active 64265786 Problem Essential hypertension I10 Active 38113656 Problem Other chronic pain G89.29 Active 83639580 Problem Prediabetes R73.03 Active 272414848 ALLERGIES No Information ENCOUNTERS Encounter Location Date Diagnosis [facility] [id number], [place] [address] Mar, [facility] [address], [place] [address] November, [facility] [address], [place] [address] November, [facility] [address], [place] [address] November, [facility] [id number], [place] [address] November, [facility] [id number] [place] [address]100- 2589 November, [place] [id number] [place] [address] 15866- 0726 November, [place] [id number] [place] [address] 87049- 1610 November, Prediabetes R73.03 ; Other chronic pain G89.29 ; Dorsalgia, unspecified M54.9 ; Cervicalgia M54.2 ; Mucopurulent chronic bronchitis J41.1 ; Tobacco abuse Z72.0 ; Coronary artery disease involving [place] coronary artery of [place] heart without angina pectoris I25.10 and Atrial fibrillation, unspecified type I48.91 [id number] [place] [address]86- 5675 Oct, [place] [address] [address]- 8[address] Sep, [place] [id number] [place] [address] 89010- 1198 Aug, [place] [id number] [place] [address] 92716- 1884 Aug, Obstructive sleep apnea (adult) (pediatric) G47.33 ; Coronary artery disease involving [place] coronary artery of [place] heart without angina pectoris I25.10 ; Tobacco abuse Z72.0 ; Essential hypertension I10 and Pre-diabetes R73.03 [place] [id number] [place] [address] 47947- 5967 Jul, [place] [id number] [place] [address] 92811- 6815 Jul, Encounter for immunization Z23 [place] [id number] [place] [address] 87635- 7310 May, Atrial fibrillation, unspecified type I48.91 ; Chest pain, unspecified type R07.9 ; Coronary artery disease involving [place] coronary artery of [place] heart without angina pectoris I25.10 and Essential hypertension I10 [address] [id number] [place] [address] Mar, Dependence on other enabling machines and devices Z99.89 ; Obstructive sleep apnea (adult) (pediatric) G47.33 ; Mucopurulent chronic bronchitis J41.1 ; Tobacco abuse Z72.0 and Coronary artery disease involving [place] coronary artery of [place] heart without angina pectoris I25.10 IMMUNIZATIONS No Known Immunizations SOCIAL HISTORY Never Assessed REASON FOR VISIT new med PLAN OF CARE VITAL SIGNS MEDICATIONS Medication Instructions Dosage Frequency Start Date End Date Duration Status Atorvastatin Calcium 40 mg Orally Once a day 1 tablet 24h November, 30 day(s) Active RESULTS No Results PROCEDURES No Known [...]
--- OUTSIDE RECORDS SUMMARY | 2018-06-29 08:59 | XMS REPORT ---
Author Author MAITE PALMER Organization [facility] Address [address] [place] [address] Care Team Providers Care Sieve Repairer Name Role Phone MAITE PALMER Unavailable PROBLEMS Type Condition ICD9-CM Code LNQ90-WB Code Onset Dates Condition Status SNOMED Code Problem Dependence on other enabling machines and devices Z99.89 Active 570084012 Problem Coronary artery disease involving [place] coronary artery of [place] heart without angina pectoris I25.10 Active 2704720599651 Problem Mucopurulent chronic bronchitis J41.1 Active 00399944 Problem Pulmonary nodules R91.8 Active 392530960 Problem Obstructive sleep apnea (adult) (pediatric) G47.33 Active 21273521 Problem Tobacco abuse Z72.0 Active 793790769 Problem Cervicalgia M54.2 Active 12449933 Problem Dorsalgia, unspecified M54.9 Active 871311317 Problem Atrial fibrillation, unspecified type I48.91 Active 56964696 Problem Essential hypertension I10 Active 96130584 Problem Other chronic pain G89.29 Active 55178429 Problem Prediabetes R73.03 Active 497337568 ALLERGIES Substance Reaction Event Type Date Status Penicillin V Potassium Unknown Drug Allergy November, Active Morphine Sulfate Unknown Drug Allergy November, Active Aspirin swelling Drug Allergy November, Active Bee stings Unknown Non Drug Allergy November, Active lemon Unknown Non Drug Allergy November, Active ENCOUNTERS Encounter Location Date Diagnosis [facility] [address] [facility] [id number] [address] Mar, [facility] [id number], [place] [address] November, [facility] [id number], [place] [address] November, [facility] [id number] [place] [address] 12952- 5436 November, [facility] [place] [address] [place] [address] 84878- 7467 November, [facility] [place] [id number] [place] [address] 59815- 8874 November, [facility] [place] [id number] [place] [address] 10128- 8700 November, [place] [id number] [place] [address] 44204- 3059 November, Prediabetes R73.03 ; Other chronic pain G89.29 ; Dorsalgia, unspecified M54.9 ; Cervicalgia M54.2 ; Mucopurulent chronic bronchitis J41.1 ; Tobacco abuse Z72.0 ; Coronary artery disease involving j[place] coronary artery of jena heart without angina pectoris I25.10 and Atrial fibrillation, unspecified type I48.91 [place] [address] [id number] [place] [address] 71882- 9868 Oct, [place] [id number] [place] [address] 88885- 1288 Sep, [place] [id number] [place] [address] 59789- 0475 Aug, [place] [id number] [place] [address] 58410- 8151 Aug, Obstructive sleep apnea (adult) (pediatric) G47.33 ; Coronary artery disease involving jena coronary artery of jena heart without angina pectoris I25.10 ; Tobacco abuse Z72.0 ; Essential hypertension I10 and Pre-diabetes R73.03 [place] [id number] [place] [address] 60222- 9248 Jul, [place] [id number] [place] [address] 55837- 5780 Jul, Encounter for immunization Z23 [place] [id number] [place] [address] 00253- 3473 May, Atrial fibrillation, unspecified type I48.91 ; Chest pain, unspecified type R07.9 ; Coronary artery disease involving [place] coronary artery of [place] heart without angina pectoris I25.10 and Essential hypertension I10 [facility] [address] [facility] [id number] [place] [address] Mar, Dependence on other enabling machines and devices Z99.89 ; Obstructive sleep apnea (adult) (pediatric) G47.33 ; Mucopurulent chronic bronchitis J41.1 ; Tobacco abuse Z72.0 and Coronary artery disease involving jena coronary artery of jena heart without angina pectoris I25.10 IMMUNIZATIONS No Known Immunizations SOCIAL HISTORY Never Assessed REASON FOR VISIT Blood Pressure, needs nebulizing treatment so used all emergency inhalers.- [id number] PLAN OF CARE Activity Details Follow Up 3 Months with Saul JUAN Reason: VITAL SIGNS Height 72 in 2017-12-08 Weight 218.0 lbs 2017-12-08 Temperature 98.5 degrees Fahrenheit 2017-12-08 Heart Rate 92 bpm 2017-12-08 Respiratory Rate 20 2017-12-08 BMI 29.56 kg/m2 2017-12-08 Blood pressure systolic 110 mmHg 2017-12-08 Blood pressure diastolic 75 mmHg 2017-12-08 MEDICATIONS Medication Instructions Dosage Frequency Start Date End Date Duration Status HydrOXYzine HCl 25 MG Orally every 8 hrs 1 tablet as needed 8h Active Atorvastatin Calcium 20 mg Orally Once a day 1 tablet 24h Active Pantoprazole Sodium 40 MG Orally Once a day 1 tablet 24h Active Asmanex HFA 200 MCG/ACT Inhalation Twice a day 2 puffs 12h Active Metoprolol Tartrate 25 MG Orally Twice a day 1 tablet with food 12h Active Vitamin B-1 100 mg Orally Once a day 1 tablet 24h Active Mobic 7.5 MG Orally Once a day 1 tablet 24h November, Dec, 30 day(s) Active Lisinopril 10 mg Orally Once a day 1 tablet 24h Active Ipratropium-Albuterol 0.5-2.5 (3) MG/3ML Inhalation every 6 hrs 3 ml 6h November, Active Nitroglycerin 0.4 MG Sublingual Once a day 1 tablet at onset of chest pain every 5 minutes -max of 3 24h Active Eliquis 5 mg Orally twice daily 1 tablet May, 30 days Active Stiolto Respimat 2.5-2.5 MCG/ACT Inhalation Once a day 2 puffs 24h Active Clopidogrel Bisulfate 75 MG Orally Once a day 1 tablet 24h Active Folic Acid 1 MG Orally Once a day 1 tablet 24h Active Proventil HFA 108 (90 Base) MCG/ACT Inhalation every 4 hrs 2 puffs as needed 4h Active Albuterol Sulfate (2.5 MG/3ML) 0.083% Inhalation 2 times a day 3 ml 12h Active RESULTS No Results PROCEDURES Procedure Date Ordered Result Body Site LAB NOT BILLED BY [employer] December 08, 2017 Hemoglobin Test Send Out 0 dollar December 08, 2017 INSTRUCTIONS MEDICATIONS ADMINISTERED No Known Medications MEDICAL [...]
--- OUTSIDE RECORDS SUMMARY | 2018-06-29 08:59 | XMS REPORT ---
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 Active 1285972885559 Problem Mucopurulent chronic bronchitis J41.1 Active 30181929 Problem Pulmonary nodules R91.8 Active 609489383 Problem Obstructive sleep apnea (adult) (pediatric) G47.33 Active 19803702 Problem Tobacco abuse Z72.0 Active 681416784 Problem Cervicalgia M54.2 Active 33079609 Problem Dorsalgia, unspecified M54.9 Active 620640573 Problem Atrial fibrillation, unspecified type I48.91 Active 14220006 Problem Essential hypertension I10 Active 09068869 Problem Other chronic pain G89.29 Active 70785427 Problem Prediabetes R73.03 Active 610960273 ALLERGIES No Information ENCOUNTERS Encounter Location Date Diagnosis [facility] [id number], [place] [address] November, [facility] [address] [place] [address] 57533- 3888 November, [facility] [address], [place] [address]- 29[address] November, [facility] [address], [place] [address]- 7429 November, [facility] [id number], [place] [address]- 8[address] November, [facility] [id number] [place] [address] 97065- 5310 November, [place] [id number] [place] [address] 57684- 4976 November, Prediabetes R73.03 ; Other chronic pain G89.29 ; Dorsalgia, unspecified M54.9 ; Cervicalgia M54.2 ; Mucopurulent chronic bronchitis J41.1 ; Tobacco abuse Z72.0 ; Coronary artery disease involving [place] coronary artery of [place] heart without angina pectoris I25.10 and Atrial fibrillation, unspecified type I48.91 [place] [id number] [place] [address] 38799- 6805 Oct, [place] [address] 23408- 9477 Sep, [place] [id number] [place] [address] 34163- 8996 Aug, [place] [id number] [place] [address] 87490- 6197 Aug, Obstructive sleep apnea (adult) (pediatric) G47.33 ; Coronary artery disease involving [place] coronary artery of [place] heart without angina pectoris I25.10 ; Tobacco abuse Z72.0 ; Essential hypertension I10 and Pre-diabetes R73.03 [place] [id number] [place] [address] 90002- 1426 Jul, [place] [id number] [place] [address] 89074- 8595 Jul, Encounter for immunization Z23 [place] [id number] [place] [address] 79390- 8436 May, Atrial fibrillation, unspecified type I48.91 ; Chest pain, unspecified type R07.9 ; Coronary artery disease involving [place] coronary artery of [place] heart without angina pectoris I25.10 and Essential hypertension I10 [place] [id number] [place] [address] 34127- 4403 Mar, Dependence on other enabling machines and devices Z99.89 ; Obstructive sleep apnea (adult) (pediatric) G47.33 ; Mucopurulent chronic bronchitis J41.1 ; Tobacco abuse Z72.0 and Coronary artery disease involving [place] coronary artery of [place] heart without angina pectoris I25.10 IMMUNIZATIONS No Known Immunizations SOCIAL HISTORY Never Assessed REASON FOR VISIT Controlled Med Refill PLAN OF CARE VITAL SIGNS MEDICATIONS Unknown Medications RESULTS No Results PROCEDURES No Known [...] 2 years ago Hospitalization History COPD exacerbation 2017
--- OUTSIDE RECORDS SUMMARY | 2018-06-29 08:59 | XMS REPORT ---
Author Author MAITE HUGHES Organization [facility] Address [address] [place] [address] Care Team Providers Care Driller Multiple Spindle Name Role Phone MAITE HUGHES Unavailable PROBLEMS Type Condition ICD9-CM Code WRW94-HE Code Onset Dates Condition Status SNOMED Code Problem Dependence on other enabling machines and devices Z99.89 Active 104309068 Problem Coronary artery disease involving [place] coronary artery of [place] heart without angina pectoris I25.10 Active 1089325590004 Problem Mucopurulent chronic bronchitis J41.1 Active 58544035 Problem Pulmonary nodules R91.8 Active 268268347 Problem Obstructive sleep apnea (adult) (pediatric) G47.33 Active 21382846 Problem Tobacco abuse Z72.0 Active 268349338 Problem Cervicalgia M54.2 Active 83665388 Problem Dorsalgia, unspecified M54.9 Active 223560759 Problem Atrial fibrillation, unspecified type I48.91 Active 15139362 Problem Essential hypertension I10 Active 06141668 Problem Other chronic pain G89.29 Active 05128172 Problem Prediabetes R73.03 Active 156576889 ALLERGIES No Information ENCOUNTERS Encounter Location Date Diagnosis [facility] [id number], [place] [address] Mar, [facility] [address], [place] [address]- 0498 November, [facility] [address], [place] [address]- 7195 November, [facility] [address], [place] [address]- 5293 November, [facility] [id number], [place] [address]- [address] November, [facility] [id number] [place] [address] 24534- 0982 November, [place] [id number] [place] [address] 29610- 9492 November, [place] [id number] [place] [address] 88762- 9179 November, Prediabetes R73.03 ; Other chronic pain G89.29 ; Dorsalgia, unspecified M54.9 ; Cervicalgia M54.2 ; Mucopurulent chronic bronchitis J41.1 ; Tobacco abuse Z72.0 ; Coronary artery disease involving [place] coronary artery of [place] heart without angina pectoris I25.10 and Atrial fibrillation, unspecified type I48.91 [id number] [place] [address] 47912- 1648 Oct, [place] [address] 87141- 8498 Sep, [place] [id number] [place] [address] 55483- 2622 Aug, [place] [id number] [place] [address] 09549- 3996 Aug, Obstructive sleep apnea (adult) (pediatric) G47.33 ; Coronary artery disease involving [place] coronary artery of [place] heart without angina pectoris I25.10 ; Tobacco abuse Z72.0 ; Essential hypertension I10 and Pre-diabetes R73.03 [place] [id number] [place] [address] 59830- 5953 Jul, [place] [id number] [place] [address] 56589- 8932 Jul, Encounter for immunization Z23 [place] [id number] [place] [address] 16778- 1471 May, Atrial fibrillation, unspecified type I48.91 ; Chest pain, unspecified type R07.9 ; Coronary artery disease involving [place] coronary artery of [place] heart without angina pectoris I25.10 and Essential hypertension I10 [address] [id number] [place] [address]- [address] Mar, Dependence on other enabling machines and devices Z99.89 ; Obstructive sleep apnea (adult) (pediatric) G47.33 ; Mucopurulent chronic bronchitis J41.1 ; Tobacco abuse Z72.0 and Coronary artery disease involving [place] coronary artery of [place] heart without angina pectoris I25.10 IMMUNIZATIONS No Known Immunizations SOCIAL HISTORY Never Assessed REASON FOR VISIT Patient came in to clinic today for a refill on his proventil inhaler. States he has been calling since Wednesday with no result. Explained to patient that Dr. Hughes is out of office on Fridays and medication sent to pharmacy with two refill at this time. PLAN OF CARE VITAL SIGNS MEDICATIONS Unknown [...]
--- OUTSIDE RECORDS SUMMARY | 2018-06-29 08:59 | XMS REPORT ---
Author Author MAITE PALMER Organization [facility] Address [address] [place] [address] Care Team Providers Care Mop Maker Name Role Phone MAITE PALMER Unavailable PROBLEMS Type Condition ICD9-CM Code XKX44-YF Code Onset Dates Condition Status SNOMED Code Problem Dependence on other enabling machines and devices Z99.89 Active 823337012 Problem Coronary artery disease involving [place] coronary artery of [place] heart without angina pectoris I25.10 Active 8287222684715 Problem Mucopurulent chronic bronchitis J41.1 Active 86550442 Problem Pulmonary nodules R91.8 Active 486171551 Problem Obstructive sleep apnea (adult) (pediatric) G47.33 Active 78016276 Problem Tobacco abuse Z72.0 Active 818070029 Problem Cervicalgia M54.2 Active 94302375 Problem Dorsalgia, unspecified M54.9 Active 101287319 Problem Atrial fibrillation, unspecified type I48.91 Active 57414216 Problem Essential hypertension I10 Active 07152105 Problem Other chronic pain G89.29 Active 33409428 Problem Prediabetes R73.03 Active 089148606 ALLERGIES No Information ENCOUNTERS Encounter Location Date Diagnosis [facility] [id number] [address]- [address] Mar, [facility] [address] [address]- 3709 November, [facility] [address] [address]- 0343 November, [facility] [address] [address]- 9417 November, [facility] [id number] [address]- 5385 November, [facility] [id number] [place] [address] 39614- 7549 November, [place] [id number] [place] [address] 70216- 9015 November, [place] [id number] [place] [address] 42242- 5160 November, Prediabetes R73.03 ; Other chronic pain G89.29 ; Dorsalgia, unspecified M54.9 ; Cervicalgia M54.2 ; Mucopurulent chronic bronchitis J41.1 ; Tobacco abuse Z72.0 ; Coronary artery disease involving [place] coronary artery of [place] heart without angina pectoris I25.10 and Atrial fibrillation, unspecified type I48.91 [address] [id number] [place] [address] 96908- 4735 Oct, [place] [address] 27847- 3314 Sep, [place] [id number] [place] [address] 78808- 0239 Aug, [place] [id number] [place] [address] 39246- 2888 Aug, Obstructive sleep apnea (adult) (pediatric) G47.33 ; Coronary artery disease involving [place] coronary artery of [place] heart without angina pectoris I25.10 ; Tobacco abuse Z72.0 ; Essential hypertension I10 and Pre-diabetes R73.03 [place] [id number] [place] [address] 19971- 2955 Jul, [place] [id number] [place] [address] 22745- 4472 Jul, Encounter for immunization Z23 [place] [id number] [place] [address] 72402- 6735 May, Atrial fibrillation, unspecified type I48.91 ; Chest pain, unspecified type R07.9 ; Coronary artery disease involving [place] coronary artery of [place] heart without angina pectoris I25.10 and Essential hypertension I10 [address] [id number] [place] [address]- [address] Mar, Dependence on other enabling machines and devices Z99.89 ; Obstructive sleep apnea (adult) (pediatric) G47.33 ; Mucopurulent chronic bronchitis J41.1 ; Tobacco abuse Z72.0 and Coronary artery disease involving [place] coronary artery of [place] heart without angina pectoris I25.10 IMMUNIZATIONS No Known Immunizations SOCIAL HISTORY Never Assessed REASON FOR VISIT Eliquis PLAN OF CARE VITAL SIGNS MEDICATIONS Medication [...]
--- OUTSIDE RECORDS SUMMARY | 2018-06-29 08:59 | XMS REPORT ---
Author Author MAITE PALMER Organization [facility] Address [address] [place] [address] Care Team Providers Care Mid Level Clinician Name Role Phone MAITE PALMER Unavailable PROBLEMS Type Condition ICD9-CM Code HKC09-TI Code Onset Dates Condition Status SNOMED Code Problem Dependence on other enabling machines and devices Z99.89 Active 744714511 Problem Coronary artery disease involving [place] coronary artery of [place] heart without angina pectoris I25.10 Active 5365578875473 Problem Mucopurulent chronic bronchitis J41.1 Active 16534423 Problem Pulmonary nodules R91.8 Active 827556821 Problem Obstructive sleep apnea (adult) (pediatric) G47.33 Active 71035231 Problem Tobacco abuse Z72.0 Active 988476766 Problem Cervicalgia M54.2 Active 85591418 Problem Dorsalgia, unspecified M54.9 Active 508598493 Problem Atrial fibrillation, unspecified type I48.91 Active 79902154 Problem Essential hypertension I10 Active 63431440 Problem Other chronic pain G89.29 Active 98753441 Problem Prediabetes R73.03 Active 545066238 ALLERGIES No Information ENCOUNTERS Encounter Location Date Diagnosis [facility] [id number] [address] Mar, [facility] [address] [address] November, [facility] [address] [address] November, [facility] [address] [address] November, [facility] [id number] [address] November, [facility] [id number] [place] [address] November, [place] [id number] [place] [address]298- 75[address] November, [place] [id number] [place] [address]82- 3559 November, Prediabetes R73.03 ; Other chronic pain G89.29 ; Dorsalgia, unspecified M54.9 ; Cervicalgia M54.2 ; Mucopurulent chronic bronchitis J41.1 ; Tobacco abuse Z72.0 ; Coronary artery disease involving [place] coronary artery of [place] heart without angina pectoris I25.10 and Atrial fibrillation, unspecified type I48.91 [id number] [place] [address]- [address] Oct, [place] [address] [address] [address] Sep, [place] [id number] [place] [address] 26181- 3[address] Aug, [place] [id number] [place] [address] 23165- 36[address] Aug, Obstructive sleep apnea (adult) (pediatric) G47.33 ; Coronary artery disease involving [place] coronary artery of [place] heart without angina pectoris I25.10 ; Tobacco abuse Z72.0 ; Essential hypertension I10 and Pre-diabetes R73.03 [address] [address] [id number] [place] [address] 82702- 6149 Jul, [place] [id number] [place] [address] 12178- 7936 Jul, Encounter for immunization Z23 [place] [id number] [place] [address] 90758- 57[address] May, Atrial fibrillation, unspecified type I48.91 ; Chest pain, unspecified type R07.9 ; Coronary artery disease involving [place] coronary artery of [place] heart without angina pectoris I25.10 and Essential hypertension I10 [address] [id number] [place] [address] Mar, Dependence on other enabling machines and devices Z99.89 ; Obstructive sleep apnea (adult) (pediatric) G47.33 ; Mucopurulent chronic bronchitis J41.1 ; Tobacco abuse Z72.0 and Coronary artery disease involving [place] coronary artery of [place] heart without angina pectoris I25.10 IMMUNIZATIONS No Known Immunizations SOCIAL HISTORY Never Assessed REASON FOR VISIT Requests return call PLAN OF CARE VITAL SIGNS MEDICATIONS Unknown [...]
--- OUTSIDE RECORDS SUMMARY | 2018-06-29 08:59 | XMS REPORT ---
Author Author CRISTHIAN WEBB Organization [facility] Address [address] [place] [address] Care Team Providers Care Financial Services Agent Name Role Phone CRISTHIAN WEBB Unavailable PROBLEMS Type Condition ICD9-CM Code VAM19-WZ Code Onset Dates Condition Status SNOMED Code Problem Dependence on other enabling machines and devices Z99.89 Active 325967977 Problem Coronary artery disease involving [place] coronary artery of [place] heart without angina pectoris I25.10 Active 0430343326733 Problem Mucopurulent chronic bronchitis J41.1 Active 96398099 Problem Pulmonary nodules R91.8 Active 193044833 Problem Obstructive sleep apnea (adult) (pediatric) G47.33 Active 97660890 Problem Tobacco abuse Z72.0 Active 309892466 Problem Cervicalgia M54.2 Active 62815390 Problem Dorsalgia, unspecified M54.9 Active 581195498 Problem Atrial fibrillation, unspecified type I48.91 Active 58371577 Problem Essential hypertension I10 Active 18746270 Problem Other chronic pain G89.29 Active 42312688 Problem Prediabetes R73.03 Active 821818827 ALLERGIES No Information ENCOUNTERS Encounter Location Date Diagnosis [facility] [address] [id number], [place] [address] November, [facility] [address] [place] [address]99- [address] November, [facility] [address], [place] [address] November, [facility] [address], [place] [address] November, [facility] [address] [id number], [place] [address] November, [facility] [id number] [place] [address] 97752- 6312 November, [place] [id number] [place] [address] 67642- [address] November, Prediabetes R73.03 ; Other chronic pain G89.29 ; Dorsalgia, unspecified M54.9 ; Cervicalgia M54.2 ; Mucopurulent chronic bronchitis J41.1 ; Tobacco abuse Z72.0 ; Coronary artery disease involving [place] coronary artery of [place] heart without angina pectoris I25.10 and Atrial fibrillation, unspecified type I48.91 [id number] [place] [address] 88906- 5659 Oct, [place] [address] [address] [address] Sep, [place] [id number] [place] [address]26- 3682 Aug, [place] [id number] [place] [address] 52900- 4219 Aug, Obstructive sleep apnea (adult) (pediatric) G47.33 ; Coronary artery disease involving [place] coronary artery of [place] heart without angina pectoris I25.10 ; Tobacco abuse Z72.0 ; Essential hypertension I10 and Pre-diabetes R73.03 [place] [address] [id number] [place] [address] 88071- 7150 Jul, [place] [id number] [place] [address] 56007- 2357 Jul, Encounter for immunization Z23 [place] [id number] [place] [address] 02066- 64[address] May, Atrial fibrillation, unspecified type I48.91 ; Chest pain, unspecified type R07.9 ; Coronary artery disease involving [place] lions coronary artery of [place] heart without angina pectoris I25.10 and Essential hypertension I10 [place] [id number] [place] [address] 12534- 30[address] Mar, Dependence on other enabling machines and devices Z99.89 ; Obstructive sleep apnea (adult) (pediatric) G47.33 ; Mucopurulent chronic bronchitis J41.1 ; Tobacco abuse Z72.0 and Coronary artery disease involving [place] lions coronary artery of port lions heart without angina pectoris I25.10 IMMUNIZATIONS No [...]
--- OUTSIDE RECORDS SUMMARY | 2018-06-29 08:59 | XMS REPORT ---
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 Name Role Phone MAITE PALMER Unavailable PROBLEMS Type Condition ICD9-CM Code MUM85-XG Code Onset Dates Condition Status SNOMED Code Problem Dependence on other enabling machines and devices Z99.89 Active 645964953 Problem Coronary artery disease involving hus[place] coronary artery of [place] heart without angina pectoris I25.10 Active 6652254796024 Problem Mucopurulent chronic bronchitis J41.1 Active 85730446 Problem Pulmonary nodules R91.8 Active 885430622 Problem Obstructive sleep apnea (adult) (pediatric) G47.33 Active 84031451 Problem Tobacco abuse Z72.0 Active 105762072 Problem Cervicalgia M54.2 Active 89517491 Problem Dorsalgia, unspecified M54.9 Active 311017188 Problem Atrial fibrillation, unspecified type I48.91 Active 33319267 Problem Essential hypertension I10 Active 55090820 Problem Other chronic pain G89.29 Active 93308825 Problem Prediabetes R73.03 Active 115055177 ALLERGIES No Information ENCOUNTERS Encounter Location Date Diagnosis [facility] [id number] [address] Mar, [facility] [address] [address] November, [facility] [address] [address] November, [facility] [address] [address] November, [facility] [id number] [address] November, [facility] [id number] [place] [address]886- [address] November, [place] [id number] [place] [address] 31347- 8023 November, [place] [id number] [place] [address] 32395- 5312 November, Prediabetes R73.03 ; Other chronic pain G89.29 ; Dorsalgia, unspecified M54.9 ; Cervicalgia M54.2 ; Mucopurulent chronic bronchitis J41.1 ; Tobacco abuse Z72.0 ; Coronary artery disease involving [place] coronary artery of [place] heart without angina pectoris I25.10 and Atrial fibrillation, unspecified type I48.91 [id number] [place] [address] 22449- 0493 Oct, [place] [address] [address] [address]65- 5[address] Sep, [place] [id number] [place] [address] 22284- 8292 Aug, [place] [id number] [place] [address] 78245- 0295 Aug, Obstructive sleep apnea (adult) (pediatric) G47.33 ; Coronary artery disease involving hus[place] coronary artery of hus[place] heart without angina pectoris I25.10 ; Tobacco abuse Z72.0 ; Essential hypertension I10 and Pre-diabetes R73.03 [place] [id number] [place] [address] 27128- 8630 Jul, [place] [id number] [place] [address] 96480- 7217 Jul, Encounter for immunization Z23 [place] [id number] [place] [address] 48149- 5592 May, Atrial fibrillation, unspecified type I48.91 ; Chest pain, unspecified type R07.9 ; Coronary artery disease involving [place] coronary artery of hus[place] heart without angina pectoris I25.10 and Essential hypertension I10 [address] [id number] [address] Mar, Dependence on other enabling machines and devices Z99.89 ; Obstructive sleep apnea (adult) (pediatric) G47.33 ; Mucopurulent chronic bronchitis J41.1 ; Tobacco abuse Z72.0 and Coronary artery disease involving hus[place] coronary artery of huslia heart without angina pectoris I25.10 IMMUNIZATIONS No [...]
--- OUTSIDE RECORDS SUMMARY | 2018-06-29 09:00 | XMS REPORT | Continuity of Care Document ---
Author Author [facility] Address Unknown Phone Unavailable Allergies Active Description Code Type Severity Reaction Onset Reported/Identified Relationship to Patient Clinical Status Yes No Known Drug Allergies [id number] Drug Allergy Unknown N/A 08/04/2017 Yes aspirin [id number] Drug Allergy Unknown N/A 06/24/2018 Yes morphine [id number] Drug Allergy Unknown N/A 06/24/2018 Yes Penicillins [id number] Drug Allergy Unknown N/A 06/24/2018 Medications There is no data. Problems Date Dx Coded Attending Type Code Diagnosis Diagnosed By 07/13/2017 CRISTHIAN WEBB MD Ot I48.91 UNSPECIFIED ATRIAL FIBRILLATION 07/22/2017 CRISTHIAN WEBB MD Ot I48.91 UNSPECIFIED ATRIAL FIBRILLATION 07/22/2017 CRISTHIAN WEBB MD Ot I48.91 UNSPECIFIED ATRIAL FIBRILLATION 08/10/2017 CRISTHIAN WEBB MD Ot I48.91 UNSPECIFIED ATRIAL FIBRILLATION 08/18/2017 CRISTHIAN WEBB MD Ot I48.91 UNSPECIFIED ATRIAL FIBRILLATION 05/25/2018 EVGENY SORIANO SERIALS LIBRARIAN Ot G47.33 OBSTRUCTIVE SLEEP APNEA (ADULT) (PEDIATR 05/25/2018 EVGENY SORIANO E SERIALS LIBRARIAN Ot J44.9 CHRONIC OBSTRUCTIVE PULMONARY DISEASE, U 05/25/2018 EVGENY SORIANO SERIALS LIBRARIAN Ot R06.00 DYSPNEA, UNSPECIFIED 05/25/2018 EVGENY SORIANO SERIALS LIBRARIAN Ot Z72.0 TOBACCO USE 06/10/2018 CRISTHIAN WEBB MD Ot I48.91 UNSPECIFIED ATRIAL FIBRILLATION 06/10/2018 EVGENY SORIANO SERIALS LIBRARIAN Ot G47.33 OBSTRUCTIVE SLEEP APNEA (ADULT) (PEDIATR 06/10/2018 RENAE SORIANOINE E SERIALS LIBRARIAN Ot J44.9 CHRONIC OBSTRUCTIVE PULMONARY DISEASE, U 06/10/2018 RENAE SORIANOINE E SERIALS LIBRARIAN Ot Z72.0 TOBACCO USE 06/10/2018 EVGENY SORIANO E SERIALS LIBRARIAN Ot G47.33 OBSTRUCTIVE SLEEP APNEA (ADULT) (PEDIATR 06/10/2018 BO, EVGENY E SERIALS LIBRARIAN Ot J44.9 CHRONIC OBSTRUCTIVE PULMONARY DISEASE, U 06/10/2018 BO, EVGENY E SERIALS LIBRARIAN Ot R06.00 DYSPNEA, UNSPECIFIED 06/10/2018 BO, EVGENY E SERIALS LIBRARIAN Ot Z72.0 TOBACCO USE 06/14/2018 BO, EVGENY E SERIALS LIBRARIAN Ot G47.33 OBSTRUCTIVE SLEEP APNEA (ADULT) (PEDIATR 06/14/2018 BO, EVGENY E SERIALS LIBRARIAN Ot J44.9 CHRONIC OBSTRUCTIVE PULMONARY DISEASE, U 06/14/2018 BO, EVGENY E SERIALS LIBRARIAN Ot Z72.0 TOBACCO USE 06/15/2018 BO, EVGENY E SERIALS LIBRARIAN Ot G47.33 OBSTRUCTIVE SLEEP APNEA (ADULT) (PEDIATR 06/15/2018 BO, EVGENY E SERIALS LIBRARIAN Ot J44.9 CHRONIC OBSTRUCTIVE PULMONARY DISEASE, U 06/15/2018 BO, EVGENY E SERIALS LIBRARIAN Ot R06.00 DYSPNEA, UNSPECIFIED 06/15/2018 BO, EVGENY E SERIALS LIBRARIAN Ot Z72.0 TOBACCO USE 06/15/2018 BO, EVGENY E SERIALS LIBRARIAN Ot G47.33 OBSTRUCTIVE SLEEP APNEA (ADULT) (PEDIATR 06/15/2018 BO, EVGENY E SERIALS LIBRARIAN Ot J44.9 CHRONIC OBSTRUCTIVE PULMONARY DISEASE, U 06/15/2018 BO, EVGENY E SERIALS LIBRARIAN Ot R06.00 DYSPNEA, UNSPECIFIED 06/15/2018 BO, EVGENY E SERIALS LIBRARIAN Ot Z72.0 TOBACCO USE Procedures There is no data. Results Test Result Range A1C - 12/08/17 15:13 HEMOGLOBIN A1c 5.5 % of total Hgb <5.7 [facility] - 05/12/18 11:51 GLUCOSE 89 mg/dL 65-99 UREA NITROGEN (BUN) 11 mg/dL 7-25 CREATININE 0.99 mg/dL 0.70-1.33 eGFR NON-AFR. SENEGALESE 86 mL/min/1.73m2 > OR=60 eGFR 100 mL/min/1.73m2 > OR=60 BUN/CREATININE RATIO NOT APPLICABLE (calc) 6-22 SODIUM 139 mmol/L 135-146 POTASSIUM 4.3 mmol/L 3.5-5.3 CHLORIDE 105 mmol/L 98-110 CARBON DIOXIDE 28 mmol/L 20-32 CALCIUM 8.9 mg/dL 8.6-10.3 PROTEIN, TOTAL 7.0 g/dL 6.1-8.1 ALBUMIN 4.0 g/dL 3.6-5.1 GLOBULIN 3.0 g/dL (calc) 1.9-3.7 ALBUMIN/GLOBULIN RATIO 1.3 (calc) 1.0-2.5 BILIRUBIN, TOTAL 0.4 mg/dL 0.2-1.2 ALKALINE PHOSPHATASE 55 U/L 40-115 AST 22 U/L 10-35 ALT 34 U/L 9-46 Arterial blood gas measurement - 05/24/18 11:40 Blood pCO2 36 mm[Hg] 35-45 Blood pO2 77 mm[Hg] 79-93 Arterial blood bicarbonate measurement (moles/volume) 25 mmol/L 23-27 Arterial blood base excess by calculation 1.3 mmol/L -2.5 -2.5 Arterial blood oxygen saturation measurement 97 % 94-100 * Inhaled oxygen flow rate RA NRG Arterial blood pH measurement with patient temperature correction 7.45 7.37-7.43 Arterial blood carbon dioxide, total measurement (moles/volume) 26.3 mmol/L 21.0-31.0 Body site RR NRG Assessment of wrist artery patency prior to arterial puncture YES- POS NRG Setting of ventilation mode NO NRG Measurement of body temperature 96.9 NRG TISSUE, SPECIMEN A - 05/24/18 14:08 A SOURCE NRG A GROSS DESCRIPTION NRG A DIAGNOSIS NRG Encounters ACCT No. Visit Date/Time Discharge Status Pt. Type Provider Facility Loc./Unit Complaint [id number] 05/14/2017 10:58:34 05/14/2017 23:59:59 CLS Outpatient Marv Lemons [id number] 06/24/2018 07:48:00 06/24/2018 11:45:00 DIS Outpatient AMADEO AMIN DO [facility] PREOP BRONCHOSCOPY [id number] 06/14/2018 21:00:00 06/15/2018 07:00:00 DIS Outpatient EVGENY SORIANO APRN [facility] SLEEP TROY [id number] 06/08/2018 12:12:00 06/08/2018 23:59:59 CLS Outpatient EVGENY SORIANO APRN [facility] RAD COPD [id number] 05/24/2018 11:26:00 05/24/2018 23:59:59 CLS Preadmit EVGENY SORIANO SERIALS LIBRARIAN [facility] RAD COPD [id number] 05/24/2018 11:23:00 05/24/2018 23:59:59 CLS Outpatient EVGENY SORIANO SERIALS LIBRARIAN [facility] RT TROY,DYSPNEA [id number] 05/09/2018 15:09:00 05/09/2018 23:59:59 CLS Preadmit CRISTHIAN WEBB MD [facility] CARD AF,CAD,CVA [id number] 08/04/2017 07:12:00 08/04/2017 23:59:59 CLS Outpatient CRISTHIAN WEBB MD [facility] CARD AFIB I48.91 [id number] 07/07/2017 13:53:00 07/07/2017 23:59:59 CLS Outpatient CRISTHIAN WEBB MD [facility] CARD AFIB I48.91 [id number] 06/29/2018 08:15:00 PEN Preadmit AMADEO AMIN DO [facility] ENDO TROY/TOBACCO USE/DYSPNEA/COPD [id number] 12/10/2017 11:20:00 12/10/2017 23:59:59 [id number] 05/24/2018 13:40:00 Document Registration [id number] 05/12/2018 11:40:00 Document Registration [id number] 12/08/2017 14:00:00 Document Registration
--- OUTSIDE RECORDS SUMMARY | 2018-06-29 09:00 | XMS REPORT ---
Author Author MAIET PALMER [facility] Address [address] [place] [address] Care Team Providers Care Flame Gouger Name Role Phone MAITE PALMER Unavailable PROBLEMS Type Condition ICD9-CM Code DYC75-PY Code Onset Dates Condition Status SNOMED Code Problem Dependence on other enabling machines and devices Z99.89 Active 624178326 Problem Coronary artery disease involving atka coronary artery of atka heart without angina pectoris I25.10 Active 0177006208605 Problem Mucopurulent chronic bronchitis J41.1 Active 21303656 Problem Pulmonary nodules R91.8 Active 076272991 Problem Obstructive sleep apnea (adult) (pediatric) G47.33 Active 28515154 Problem Tobacco abuse Z72.0 Active 930419124 Problem Cervicalgia M54.2 Active 76208646 Problem Dorsalgia, unspecified M54.9 Active 659278138 Problem Atrial fibrillation, unspecified type I48.91 Active 23187827 Problem Essential hypertension I10 Active 69855324 Problem Other chronic pain G89.29 Active 90853494 Problem Prediabetes R73.03 Active 076775994 ALLERGIES Substance Reaction Event Type Date Status Penicillin V Potassium Unknown Drug Allergy Aug, Active Morphine Sulfate Unknown Drug Allergy Aug, Active Aspirin swelling Drug Allergy Aug, Active Bee stings Unknown Non Drug Allergy Aug, Active lemon Unknown Non Drug Allergy Aug, Active ENCOUNTERS Encounter Location Date Diagnosis [facility] [address] [id number] [address] November, [facility] [id number] [address] November, [facility] [id number] [address]- 3[address] November, [facility] [address] [address] November, [facility] [id number] [place] [address] 90258- 6004 November, [facility] [id number] [place] [address] 08255- 5879 November, [facility] [id number] [place] [address] 13359- 3890 November, Prediabetes R73.03 ; Other chronic pain G89.29 ; Dorsalgia, unspecified M54.9 ; Cervicalgia M54.2 ; Mucopurulent chronic bronchitis J41.1 ; Tobacco abuse Z72.0 ; Coronary artery disease involving atka coronary artery of atka heart without angina pectoris I25.10 and Atrial fibrillation, unspecified type I48.91 [place] [id number] [place] [address] 03950- 5053 Oct, [place] [id number] [place] [address] 56491- 7992 Sep, [place] [id number] [place] [address] 91322- 0470 Aug, [place] [id number] [place] [address] 91662- 8821 Aug, Obstructive sleep apnea (adult) (pediatric) G47.33 ; Coronary artery disease involving atka coronary artery of atka heart without angina pectoris I25.10 ; Tobacco abuse Z72.0 ; Essential hypertension I10 and Pre-diabetes R73.03 [place] [address] [place] [address] 65543- 4572 Jul, [place] [id number] [place] [address] 46210- 4450 Jul, Encounter for immunization Z23 [facility] [id number] [place] [address] 48160- 2696 May, Atrial fibrillation, unspecified type I48.91 ; Chest pain, unspecified type R07.9 ; Coronary artery disease involving [place]ka coronary artery of [place]ka heart without angina pectoris I25.10 and Essential hypertension I10 [facility] [id number] [address] Mar, Dependence on other enabling machines and devices Z99.89 ; Obstructive sleep apnea (adult) (pediatric) G47.33 ; Mucopurulent chronic bronchitis J41.1 ; Tobacco abuse Z72.0 and Coronary artery disease involving atka coronary artery of atka heart without angina pectoris I25.10 IMMUNIZATIONS No Known Immunizations SOCIAL HISTORY Never Assessed 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 PLAN OF CARE Activity Details Follow Up 3 Months with Saul f/u CHM Reason: VITAL SIGNS Height 72 in 2017-08-31 Weight 213.0 lbs 2017-08-31 Temperature 97.0 degrees Fahrenheit 2017-08-31 BMI 28.88 kg/m2 2017-08-31 Blood pressure systolic 122 mmHg 2017-08-31 Blood pressure diastolic 78 mmHg 2017-08-31 MEDICATIONS Medication Instructions Dosage Frequency Start Date End Date Duration Status Albuterol Sulfate (2.5 MG/3ML) 0.083% Inhalation 2 times a day 3 ml 12h Active Atorvastatin Calcium 20 mg Orally Once a day 1 tablet 24h Active Clopidogrel Bisulfate 75 MG Orally Once a day 1 tablet 24h Active Asmanex HFA 200 MCG/ACT Inhalation Twice a day 2 puffs 12h Active Lisinopril 10 mg Orally Once a day 1 tablet 24h Active Spiriva HandiHaler 18 MCG Inhalation Once a day 1 capsule 24h Active Proventil HFA 108 (90 Base) MCG/ACT Inhalation every 4 hrs 2 puffs as needed 4h Active Vitamin B-1 100 mg Orally Once a day 1 tablet 24h Active Nitroglycerin 0.4 MG Sublingual Once a day 1 tablet at onset of chest pain every 5 minutes -max of 3 24h Active Stiolto Respimat 2.5-2.5 MCG/ACT Inhalation Once a day 2 puffs 24h Active Diazepam 5 MG Orally Twice a day 1 tablet as needed 12h Active Vitamin D (Ergocalciferol) 08027 UNIT Orally once a week 1 capsule Active Metoprolol Tartrate 25 MG Orally Twice a day 1 tablet with food 12h Active Eliquis 5 MG Orally twice daily 1 tablet May, 30 days Active Pantoprazole Sodium 40 MG Orally Once a day 1 tablet 24h Active Vitamin D (Cholecalciferol) 1000 UNIT Orally Once a day 2 capsule 24h Active HydrOXYzine HCl 25 MG Orally every 8 hrs 1 tablet as needed 8h Active Tramadol HCl 50 mg Orally 3 times a day 1 tablet as needed 8h Active Folic Acid 1 MG Orally Once a day 1 tablet 24h Active RESULTS Name Result Date Reference Range A1C (IN HOUSE) 2017-08-31 A1C IN HOUSE 6.0 4.3 - 5.6 % Previous A1c n/a Lot [id number] Exp date 04/2019 PROCEDURES Procedure Date Ordered Result Body Site GLYCATED HEMOGLOBIN TEST Aug 31, 2017 INSTRUCTIONS MEDICATIONS ADMINISTERED No Known Medications [...]
[2018-06-29 09:45] VITALS: BP 124/74
--- NOTE | 2018-06-29 10:09 | Diagnostic Imaging Report ---
INDICATION: Post bronchoscopy. Time of exam: 9:42 AM No prior studies are available for comparison. The heart size is normal. Lungs are clear. No infiltrate is seen. There is no effusion. No pneumothorax is detected. IMPRESSION: No acute abnormality is detected. Dictated by: Dictated on workstation # [id number]
[2018-06-29 10:25] VITALS: BP 126/76
[2018-06-29 10:39] VITALS: BP 126/76
== END 2018-06-29 10:35 | disposition home or self-care (01) ==
LOC: ENDO 07:48
PROVIDERS: ATTEND Internal Medicine Critical Care Medicine
DX: R04.2 Hemoptysis (principal); R06.00 Dyspnea, unspecified; J44.9 Chronic obstructive pulmonary disease, unspecified; G47.33 Obstructive sleep apnea (adult) (pediatric); F17.210 Nicotine dependence, cigarettes, uncomplicated; I48.91 Unspecified atrial fibrillation; Z79.01 Long term (current) use of anticoagulants; Z79.899 Other long term (current) drug therapy
CPT/HCPCS: 71045; 87015; 87070; 87101; 87116; 87205; 87206; 88112; 88305; 94640

== ENCOUNTER 2018-07-12 20:59 | Outpatient (CLI) | payer MEDICAID | END 2018-07-13 06:49 | disposition home or self-care (01) | LOC: SLEEP 20:59 | PROVIDERS: ATTEND Nurse Practitioner Family | DX: G47.33 Obstructive sleep apnea (adult) (pediatric) (principal) | CPT/HCPCS: 95811 ==

== ENCOUNTER → 2019-06-14 | Outpatient (CLI) | payer MEDICAID, OTHER ==
--- NOTE | 2019-06-14 11:57 | Diagnostic Imaging Report ---
EXAMINATION: CT Chest without contrast (lung screening). TECHNIQUE: Multiple contiguous axial images were obtained through the chest without the use of intravenous contrast according to lung cancer screening protocol. All CT scans use one or more of the following dose optimizing techniques: automated exposure control, MA and/or KvP adjustment based on a patient size and exam type, or iterative reconstruction. HISTORY: 45 pack year history of smoking. COMPARISON: 06/08/2018 FINDINGS: The lungs are clear without edema or pneumonia. No pleural effusion or pneumothorax. No suspicious nodules. Heart size is normal. No pericardial effusion. Aorta is normal in caliber. There is no axillary or supraclavicular lymphadenopathy. There is no mediastinal lymphadenopathy. Limited views of the upper abdomen are normal. There are no suspicious osseus lesions. IMPRESSION: 1. No suspicious pulmonary nodules. LUNG-RADS CATEGORY: 1 MODIFIER: None. OTHER SIGNIFICANT FINDINGS: None. Dictated by: Dictated on workstation # [id number]
== END ==
LOC: RAD 11:25
PROVIDERS: ATTEND Nurse Practitioner Family
DX: J44.9 Chronic obstructive pulmonary disease, unspecified (principal); G47.33 Obstructive sleep apnea (adult) (pediatric); Z72.0 Tobacco use

== ENCOUNTER → 2020-06-17 | Outpatient (CLI) | payer MEDICAID ==
--- NOTE | 2020-06-17 15:24 | Diagnostic Imaging Report ---
CT Lung Screening INDICATION: Tobacco use qualifying for lung screening. The patient has a 44 pack year smoking history. TECHNIQUE: Noncontrast, low-dose CT imaging performed according to the lung cancer screening protocol. Auto Exposure Controls were utilize during the CT exam to meet ALARA standards for radiation dose reduction. COMPARISON:06/14/2019 FINDINGS:There are no new discrete pulmonary nodules or masses. Questionable minimal infiltrate in the medial aspect of the right lower lobe. There is no pleural or pericardial fluid. There is no pneumothorax. Heart size is normal. Vascularity is normal in caliber. There is no pathologically enlarged adenopathy in the chest. The visualized intra-abdominal structures are unremarkable. There are mild degenerative changes in the spine. IMPRESSION: Lung RADS category 1 - continue low dose CT screening in 12 months LUNG-RADS CATEGORY:1 MODIFIER: OTHER SIGNIFICANT FINDINGS:Questionable minimal infiltrate in the medial aspect of the right lower lobe Dictated by: Dictated on workstation # [id number]
== END ==
LOC: RAD 12:18
PROVIDERS: ATTEND Nurse Practitioner Family
DX: Z12.2 Encounter for screening for malignant neoplasm of respiratory organs (principal); F17.210 Nicotine dependence, cigarettes, uncomplicated

== ENCOUNTER 2020-07-14 17:40 | Emergency (ER) | payer MEDICAID ==
[~2020-07-14] VITALS: Ht 182.9 cm; Wt 97.7 kg
[2020-07-14] MEDS ORDERED: HYDROmorphone 2 MG/ML VIAL (DILAUDID) ONE (17:52)
[2020-07-14] MEDS ORDERED: TETANUS,DIPTH,PERTUSS P/F (BOOSTRIX) 0.5 ML VIAL IM ONE (18:00)
[2020-07-14] MEDS ORDERED: CLINDAMYCIN 600 MG/50 ML IVPB 50 ML IV ONE ×2 (18:01→18:15)
[2020-07-14] MEDS ORDERED: KETAMINE/NaCl 50 MG/5 ML SYRINGE (ED ONLY) ONE (18:01)
[2020-07-14 18:02] LABS: HEMOGLOBIN 14.8 g/dL (13.3-17.7); MEAN PLATELET VOLUME 9.5 fL (9.0-12.2); WHITE BLOOD COUNT 8.7 10^3/uL (4.3-11.0)
[2020-07-14] MEDS ORDERED: NS (IVPB) 250 ML ONE (18:02)
[2020-07-14] MEDS ORDERED: VANCOMYCIN 1000 MG/VIAL ONE (18:02)
[2020-07-14] MEDS ORDERED: MIDAZOLAM 2 MG/2 ML (VERSED) VIAL ONE (18:08)
--- NOTE | 2020-07-14 18:09 | ED Trauma-Multisystem ---
General Stated Complaint: LAC TO HAND Activation Level: Level 1 Source of Information: Patient Exam Limitations: No Limitations (GENE PALENCIA) History of Present Illness Date Seen by Provider: Jul 14, 2020 Time Seen by Provider: 17:40 Initial Comments Patient presents ER by private conveyance with his nephew chief complaint that just prior to arrival he cut his right wrist on a saw accidentally. He is on blood thinners for his atrial fibrillation known to Dr. Escobar, cardiology, Dr. Pugh, pulmonology. Patient states his allergies to morphine and fentanyl as it makes him stop breathing. He has a history of COPD and sleep apnea on CPAP. AFib. Patient says he was tested earlier this week for COVID-19 and it was negative. Echocardiogram from [address] Escobar demonstrates EF of 50 to 55% with grade 1 diastolic dysfunction (GENE PALENCIA) Allergies and Home Medications Allergies Coded Allergies: Penicillins (Verified Allergy, Unknown, 06/24/18) aspirin (Verified Allergy, Unknown, 06/24/18) bee pollen (Verified Allergy, Unknown, 07/14/20) lemon (Verified Allergy, Unknown, 07/14/20) morphine (Verified Allergy, Unknown, 06/24/18) Home Medications Albuterol Sulfate 1 Puff Puff, 2 PUFF IH Q4H PRN for SHORTNESS OF BREATH, (Reported) 1 PUFF = 90 MCG Albuterol Sulfate 2.5 Mg/0.5 Ml Vial.neb, 2.5 MG INH Q6H, (Reported) Apixaban 5 Mg Tablet, 5 MG PO BID, (Reported) Atorvastatin Calcium 20 Mg Tablet, 20 MG PO DAILY, (Reported) Fluticasone/Salmeterol 1 Each Blst.w.dev, 1 EACH IH BID, (Reported) Folic Acid 1 Mg Tablet, 1 MG PO DAILY, (Reported) Meloxicam 7.5 Mg Tablet, 7.5 MG PO DAILY, (Reported) Metoprolol Tartrate 25 Mg Tablet, 25 MG PO BID, (Reported) Nicotine 1 Each Patch.td24, 1 EACH TD DAILY, (Reported) Patient Home Medication List Home Medication List Reviewed: Yes (GEEN PALENCIA) Review of Systems Review of Systems Constitutional: No chills, No diaphoresis Eyes: Denies Blindness, Denies Drainage Ears: Denies Dizziness, Denies Pain Nose: No Bloody Discharge, No Clear Discharge Throat: No Aphonia, No Discharge Respiratory: No cough, No phlegm Cardiovascular: Denies Chest Pain, Denies Lightheadedness Gastrointestinal: No abdominal pain, No nausea (GENE PALENCIA) All Other Systems Reviewed Negative Unless Noted: Yes (GENE PALENCIA) Past Ytsqgei-Gyaqar-Hnoakq Hx Patient Social History Alcohol Use: Regular Use Alcohol Beverage of Choice: Whiskey Recreational Drug Use: No Smoking Status: Current Everyday Smoker Type Used: Cigarettes Recent Hopitalizations: No (GENE PALENCIA) Immunizations Up To Date Date of Influenza Vaccine: Apr 24, 2018 (GENE PALENCIA) Seasonal Allergies Seasonal Allergies: No (GENE PALENCIA) Past Medical History Appendectomy, Tonsillectomy Sleep Apnea, COPD Currently Using CPAP: No Atrial Fibrillation, Hypertension Stroke Arthritis (GENE PALENCIA) Physical Exam Vital Signs Vital Signs - First Documented 07/14/20 17:57 Pulse Ox 97 O2 Delivery Nasal Cannula O2 Flow Rate 2.00 FiO2 28 (TRENT LEE MD) Height, Weight, BMI Height: 6'0.00" Weight: 224lbs. 0.0oz. [id number]; 30.4 BMI Method: General Appearance: Anxious, Moderate Distress Head: No Evidence of Injury; No Stearns's Sign, No Contusions Eyes: Bilateral Eye Normal Inspection, Bilateral Eye PERRL, Bilateral Eye EOMI Ears, Nose, Throat: Hearing Grossly Normal, No Evidence of ENT Injury, No [place] al Injury Neck: Full Range of Motion, Normal Inspection Cardiovascular: Regular Rate, Rhythm, Normal Peripheral Pulses Respiratory: Chest Non Tender, No Accessory Muscle Use, No Respiratory Distress Gastrointestinal: Normal Bowel Sounds, No Organomegaly Extremity: Other (No capillary refill distal to injury. Fourth and fifth digit have motor intact. Sensation all 5 digits. No motor in the first 3 digits of the right hand. Laceration to the palmar side of the right wrist distal radius.) Neurologic/Psychiatric: Alert, Oriented x3 (GENE PALENCIA) [place] Coma Score Best Eye Response ([place]an): (4) Open Spontaneously Best Verbal Response (Logan): (5) Oriented Best Motor Response ([place]): (6) Obeys Commands [place] Total: 15 (GENE PALENCIA) Progress/Results/Core Measures Results/Orders Lab Results Laboratory Tests Test 07/14/20 17:50 07/14/20 18:29 Range/Units White Blood Count 8.7 4.3-11.0 10^3/uL Red Blood Count 5.02 4.30-5.52 10^6/uL Hemoglobin 14.8 13.3-17.7 g/dL Hematocrit 46 40-54 % Mean Corpuscular Volume 91 80-99 fL Mean Corpuscular Hemoglobin 30 25-34 pg Mean Corpuscular Hemoglobin Concent 33 32-36 g/dL Red Cell Distribution Width 13.5 10.0-14.5 % Platelet Count 309 130-400 10^3/uL Mean Platelet Volume 9.5 9.0-12.2 fL Prothrombin Time 14.6 12.2-14.7 SEC INR Comment 1.1 0.8-1.4 Activated Partial Thromboplast Time 29 24-35 SEC Sodium Level 139 135-145 MMOL/L Potassium Level 3.7 3.6-5.0 MMOL/L Chloride Level 104 98-107 MMOL/L Carbon Dioxide Level 26 21-32 MMOL/L Anion Gap 9 5-14 MMOL/L Blood Urea Nitrogen 11 7-18 MG/DL Creatinine 1.12 0.60-1.30 MG/DL Estimat Glomerular Filtration Rate > 60 BUN/Creatinine Ratio 10 Glucose Level 100 70-105 MG/DL Calcium Level 8.7 8.5-10.1 MG/DL Magnesium Level 2.1 1.6-2.4 MG/DL Total Bilirubin 0.4 0.1-1.0 MG/DL Direct Bilirubin 0.2 0.0-0.3 MG/DL Indirect Bilirubin 0.2 MG/DL Aspartate Amino Transf (AST/SGOT) 24 5-34 U/L Alanine Aminotransferase (ALT/SGPT) 34 0-55 U/L Alkaline Phosphatase 75 40-136 U/L Total Protein 7.7 6.4-8.2 GM/DL Albumin 4.0 3.2-4.5 GM/DL Serum Alcohol < 10 <10 MG/DL Urine Color YELLOW Urine Clarity CLEAR Urine pH 5.5 5-9 Urine Specific [place] >=1.030 1.016-1.022 Urine Protein NEGATIVE NEGATIVE Urine Glucose (UA) NEGATIVE NEGATIVE Urine Ketones TRACE H NEGATIVE Urine Nitrite NEGATIVE NEGATIVE Urine Bilirubin NEGATIVE NEGATIVE Urine Urobilinogen 0.2 < = 1.0 MG/DL Urine Leukocyte Esterase NEGATIVE NEGATIVE Urine RBC (Auto) NEGATIVE NEGATIVE Urine RBC RARE /HPF Urine WBC NONE /HPF Urine Squamous Epithelial Cells RARE /HPF Urine Crystals NONE /LPF Urine Bacteria NEGATIVE /HPF Urine Casts NONE /LPF Urine Mucus NEGATIVE /LPF Urine Culture Indicated NO (TRENT LEE MD) Vital Signs/I&O 07/14/20 17:57 Pulse Ox 97 O2 Delivery Nasal Cannula O2 Flow Rate 2.00 FiO2 28 (TRENT LEE MD) Progress Progress Note : Time: 18:31 Progress Note Care of the patient turned over to Dr. Lee pending aero care transport to [facility]. Patient is stable receiving his blood and fluids. Tetanus vaccine and antibiotics have been delivered. Patient's pain is under control. (GENE PALENCIA) Diagnostic Imaging Diagonstic Imaging: Xray Plain Films/CT/US/NM/MRI: forearm (Right) Comments NAME: TRANANNIKABAR A MED REC#: [id number] PT STATUS: REG ER : 1965 PHYSICIAN: VENUS DOSHI ADMIT DATE: 07/14/20/ER Signed Date of Exam:07/14/20 CHEST 1 VIEW, AP/PA ONLY INDICATION: Atrial fibrillation. FINDINGS: The heart size, mediastinal configuration, and pulmonary vascularity are within normal limits. There is no pleural effusion, pneumothorax, or pneumonia. The osseous structures are unremarkable. IMPRESSION: No acute cardiopulmonary abnormality. Dictated by: Dictated on workstation # [id number] Dict: 07/14/201811 Trans: 07/14/201814 [facility] [id number] Interpreted by: BOOGIE BAEZA MD Electronically signed by: BOOGIE BAEZA MD 07/14/201814 Reviewed: Reviewed by Ks Diagonstic Imaging: Xray Plain Films/CT/US/NM/MRI: chest Comments [facility]. [place], [place] NAME: EMMABAR A MED REC#: [id number] PT STATUS: REG ER : 1965 PHYSICIAN: VENUS DOSHI ADMIT DATE: 07/14/20/ER Signed Date of Exam:07/14/20 CHEST 1 VIEW, AP/PA ONLY INDICATION: Atrial fibrillation. FINDINGS: The heart size, mediastinal configuration, and pulmonary vascularity are within normal limits. There is no pleural effusion, pneumothorax, or pneumonia. The osseous structures are unremarkable. IMPRESSION: No acute cardiopulmonary abnormality. Dictated by: Dictated on workstation # [id number] Dict: 07/14/201811 Trans: 07/14/201814 PJE [id number] Interpreted by: BOOGIE BAEZA MD Electronically signed by: BOOGIE BAEZA MD 07/14/201814 Reviewed: Reviewed by Me (GENE PALENCIA) Critical Care Note Critical Care Start Time: 17:40 Stop Time: 18:15 Total Time (minutes) 45-minute Progress Limb was immobilized in a tourniquet was applied at 1742. 2 units of O+ were called for because we do not have O- available at this time. We did not have orthopedic surgery available. Dr. Boone, general surgery and anesthesia were called and paged. Trauma level 1 was ordered. 2 large-bore IVs in the left forearm were established and a liter of fluids as well as blood were started on the warmer. Warm blankets were applied. Patient's limb had 2 view x-ray showing a soft cut/fracture of the right radius. Dr. Boone at bedside splinted the arm and we decided to move the patient on since we do not have Ortho available. Patient does start to have some sensation in his hand although when he arrived he had no sensation or motor intact. [facility] was called and Dr. Hira James accepted the patient graciously and for that we are appreciative. Helicopter was on its way and will transport the patient directly to the OR at [facility]. Family was updated and allowed to briefly see the patient. Tdap was ordered, clindamycin was ordered. Half a milligram of Dilaudid was given. We are cautious with opiates since he says he has had respiratory collapse related opiates in the past. When he needed more pain we gave him 25 mg of ketamine. He had a little bit of anxiety with this so a milligram of Versed was given. He seemed to have good control of pain with the splint and pain medicines at this time. (GENE PALENCIA) Departure Impression Primary Impression: Laceration of right arm with complication Qualified Codes: S41.111A - Laceration without foreign body of right upper arm, initial encounter Additional Impressions: Hx of half-way use of blood thinners History of obstructive sleep apnea History of COPD Fracture of right wrist Qualified Codes: S62.101B - Fracture of unspecified carpal bone, right wrist, initial encounter for open fracture Disposition: 02 XFER SHT-TRM HOSP Condition: Critical Transfer Transfer Reason: Exceeds level of care Time Spoke to Accepting Phy: 18:08 Transfer Progress Notes Patient accepted by Dr. Hira James trauma team at [facility] Transfer Facility: [facility] Method of Transfer: Air (Aero care) (GENE PALENCIA) Transfer Time: 19:00 (TRENT LEE MD) Departure-Patient Inst. Referrals: MAITE PALMER MD (PCP/Family) Primary Care Physician GENE PALENCIA Jul 14, 2020 18:09 TRENT LEE MD Jul 14, 2020 19:20
[2020-07-14 18:13] LABS: CHLORIDE 104 MMOL/L (98-107); INR 1.1 (0.8-1.4); POTASSIUM 3.7 MMOL/L (3.6-5.0); PROTHROMBIN TIME PATIENT 14.6 SEC (12.2-14.7); SODIUM 139 MMOL/L (135-145)
--- NOTE | 2020-07-14 18:13 | Diagnostic Imaging Report ---
INDICATION: Atrial fibrillation. FINDINGS: The heart size, mediastinal configuration, and pulmonary vascularity are within normal limits. There is no pleural effusion, pneumothorax, or pneumonia. The osseous structures are unremarkable. IMPRESSION: No acute cardiopulmonary abnormality. Dictated by: Dictated on workstation # [id number]
[2020-07-14 18:14] LABS: CALCIUM 8.7 MG/DL (8.5-10.1)
[2020-07-14 18:15] LABS: GLUCOSE 100 MG/DL (70-105); TOTAL PROTEIN 7.7 GM/DL (6.4-8.2)
[2020-07-14] MEDS ORDERED: NS IV 500 ML 500 ML IV SCH (18:15)
[2020-07-14] MEDS ORDERED: VANCOMYCIN INJECTION 1,000 MG in NS (IVPB) 250 ML IV SCH (18:15)
[2020-07-14] MEDS ORDERED: KETAMINE/NaCl 50 MG/5 ML SYRINGE (ED ONLY) IV ONE (18:15)
[2020-07-14 18:16] LABS: CARBON DIOXIDE 26 MMOL/L (21-32)
[2020-07-14 18:17] LABS: BILIRUBIN,TOTAL 0.4 MG/DL (0.1-1.0)
[2020-07-14 18:19] LABS: ALKALINE PHOSPHATASE 75 U/L (40-136); CREATININE SERUM 1.12 MG/DL (0.60-1.30); GFR ESTIMATED > 60
[2020-07-14 18:20] LABS: BILIRUBIN,DIRECT 0.2 MG/DL (0.0-0.3); BILIRUBIN,INDIRECT 0.2 MG/DL; BUN/CREATININE RATIO 10
[2020-07-14 18:22] LABS: ALANINE AMINOTRANSFERASE 34 U/L (0-55); MAGNESIUM 2.1 MG/DL (1.6-2.4)
--- NOTE | 2020-07-14 18:25 | Diagnostic Imaging Report ---
INDICATION: Pain. FINDINGS: There is marked soft tissue swelling of the distal wrist. There is a defect in the distal right radial diaphysis presumably related to the saw injury. This does not appear to extend all the way through the diaphysis. There is no other acute fracture or dislocation. IMPRESSION: Defect in the distal radius, as described, with extensive overlying soft tissue swelling. Dictated by: Dictated on workstation # [id number]
[2020-07-14 18:36] LABS: BILIRUBIN,URINE NEGATIVE (NEGATIVE); CLARITY,URINE CLEAR; COLOR,URINE YELLOW; GLUCOSE, URINE (UA) NEGATIVE (NEGATIVE); KETONES,URINE TRACE (NEGATIVE); LEUKOCYTE ESTERASE ,URINE NEGATIVE (NEGATIVE); NITRITE,URINE NEGATIVE (NEGATIVE); PH,URINE 5.5 (5-9); PROTEIN,URINE NEGATIVE (NEGATIVE)
[2020-07-14 18:41] LABS: RBC,URINE RARE /HPF
[2020-07-14 18:42] LABS: BACTERIA,URINE NEGATIVE /HPF; SQUAMOUS EPITHELIAL CELL,UR RARE /HPF
[2020-07-14 19:10] VITALS: BP 146/91
--- NOTE | 2020-07-14 19:10 | NUR ---
PT ARRIVED BY PRIVATE VEHICLE WITH NEPHEW WITH A LACERATION TO RIGHT WRIST. PT WAS ALERT, ORIENTED X 4 AND WHEELED TO ROOM 3 IN A WHEELCHAIR. PT HAD SHIRT WRAPPED AROUND RIGHT WRIST. PT HAD BLOOD DRIPPING ALL OVER THE GROUND. TRAUMA WAS PAGED OUT. TOUORNIQUET WAS APPLIED AT 174. IVS WERE STARTED AT 174 IN LAC (18 GAUGE), 174 (20 GAUGE) IN LEFT HAND, AND 1814 (20 GAUGE) RAC. WARM BLANKET WAS APPLIED AND WARM BAG OF FLUIDS (1,000 SODIUM CHLORIDE) WAS STARTED. PT WAS HOOKED UP TO THE MONITOR AND VITALS WERE COMPLETED. PT STATED THAT HIS ALLERGIES WERE: PENICILLIN, MORPHINE, ASPIRIN, FENTANYL, BEES AND LORI. PT'S PMH IS COPD, A-FIB, SLEEP APNEA, HIGH CHOLESTEROL, AND HYPERTENSION. PT'S FINGERS WERE BLUE/PURPLE IN COLOR. XRAY WAS DONE TO RIGHT FOREARM AND CHEST. MEET WAS CONTACTED AT 175 AND WERE 12 MINUTES UNTIL LIFT OFF AND 25 MINUTES UNTIL ARRIVAL TO ER. 1800 DR. VALENTIN CUT CLOTH OFF AND ASSESSED HAND. PT HAD MOTOR FUNCTION OF 4TH AND 5TH FINGER AND SENSATION OF ALL 5 FINGERS. PT HAS GOOD PULSE AND CAP REFILL IN RIGHT HAND. 1ST UNIT OF BLOOD WAS STARTED AT 180. 25 OF KETAMINE WAS GIVEN AT 180. SPLINT AND ROSS WRAP APPLIED TO RIGHT FOREARM. ACCEPTED PT AT 180. 181 VERSED 1 MG WAS GIVEN. COMMUNICATION WITH MEET WAS DONE AT 181. 1812 WALLET, SHOES, BELT, CIGS GIVEN TO FAMILY (AYO). PT KEPT PHONE. 1812 CLINDAMYCIN 600 MG WAS STARTED. TETNUS WAS GIVEN AT 181. 181 1ST UNIT OF BLOOD WAS FINISHED AND 2ND UNIT OF BLOOD WAS STARTED. 182 REPORT WAS GIVEN TO yenni GIBBONS. 1825 THE SECOND UNIT OF BLOOD FINISHED. CONSENT WAS SIGNED FOR TRANSFER TO AT 1833. FLIGHT CREW ARRIVED AT 1900 AND REPORT WAS GIVEN. CARE WAS TRANSFERRED AT THIS TIME. WARM FLUID - 900ML WERE GIVEN AND LAST 100ML CONTINUED WITH [facility].
--- NOTE | 2020-07-14 21:31 | Consultation - Surgery ---
History of Present Illness History of Present Illness Patient Consulted On(latia/time) 07/14/20 17:55 Date Seen by Provider: Jul 14, 2020 Time Seen by Provider: 17:55 History of Present Illness Level 1 trauma, seen and evaluated in trauma bay My arrival arrival 1755 Patient is a level 1 trauma activation with saw injury to right forearm with significant bleeding. Occurred just approximately 10 to 15 minutes prior to patient arrival. Patient was brought to emergency department by private vehicle. Patient had tourniquet placed on right forearm at 1742. There is also a type of spandex makeshift tourniquet that has worked its way down into the wound. Patient with extreme pain to the right forearm. He has no other complaints anywhere else. Patient states that they were working on cutting some wood when a skill saw slipped and went into his right forearm. He states he had a lot of bleeding. He feels a little bit dizzy but also because of swelling medication he said he has already received. Any touching or movement causes ext brent pain to the right forearm. Right forearm x-rays demonstrating soft tissue injury with distal radius having partial cut through bone. Allergies and Home Medications Allergies Coded Allergies: Penicillins (Verified Allergy, Unknown, 06/24/18) aspirin (Verified Allergy, Unknown, 06/24/18) bee pollen (Verified Allergy, Unknown, 07/14/20) lemon (Verified Allergy, Unknown, 07/14/20) morphine (Verified Allergy, Unknown, 06/24/18) Home Medications Albuterol Sulfate 1 Puff Puff, 2 PUFF IH Q4H PRN for SHORTNESS OF BREATH, (Reported) 1 PUFF = 90 MCG Albuterol Sulfate 2.5 Mg/0.5 Ml Vial.neb, 2.5 MG INH Q6H, (Reported) Apixaban 5 Mg Tablet, 5 MG PO BID, (Reported) Atorvastatin Calcium 20 Mg Tablet, 20 MG PO DAILY, (Reported) Fluticasone/Salmeterol 1 Each Blst.w.dev, 1 EACH IH BID, (Reported) Folic Acid 1 Mg Tablet, 1 MG PO DAILY, (Reported) Meloxicam 7.5 Mg Tablet, 7.5 MG PO DAILY, (Reported) Metoprolol Tartrate 25 Mg Tablet, 25 MG PO BID, (Reported) Nicotine 1 Each Patch.td24, 1 EACH TD DAILY, (Reported) Patient Home Medication List Home Medication List Reviewed: Yes Past Bxxnoyg-Znusgt-Lnvjnk Hx Patient Social History Alcohol Use: Regular Use Recreational Drug Use: No Smoking Status: Current Everyday Smoker Type Used: Cigarettes Recent Hopitalizations: No Immunizations Up To Date Date of Influenza Vaccine: Apr 24, 2018 Seasonal Allergies Seasonal Allergies: No Surgeries Surgeries: Appendectomy, Tonsillectomy Respiratory Respiratory Disorders: Sleep Apnea, COPD Cardiovascular Cardiac Disorders: Atrial Fibrillation, Hypertension Neurological Neurological Disorders: Stroke Musculoskeletal Musculoskeletal Disorders: Arthritis Reviewed Nursing Assessment Reviewed/Agree w Nursing PMH: Yes Family Medical History Significant Family History: No Pertinent Family Hx Review of Systems-General Constitutional: No chills, No diaphoresis EENTM: No hearing loss, No blurred vision Respiratory: No cough, No dyspnea on exertion Cardiovascular: No chest pain, No edema Gastrointestinal: No abdominal pain, No nausea, No vomiting Genitourinary: No dysuria, No hematuria Musculoskeletal: No back pain, No joint pain Skin: change in color, other (Right forearm laceration) Psychiatric/Neurological: Denies Anxiety, Denies Depressed, Denies Emotional Problems All Other Systems Reviewed Negative Unless Noted: Yes (Negative excepted noted.) Physical Exam-General Problems Physical Exam Vital Signs Vital Signs - First Documented 07/14/20 17:57 Pulse Ox 97 O2 Delivery Nasal Cannula O2 Flow Rate 2.00 FiO2 28 Capillary Refill : General Appearance: mild distress, obese HEENT: PERRL/EOMI, normal ENT inspection Neck: non-tender, supple, normal inspection Respiratory: chest non-tender, no respiratory distress, no accessory muscle use Cardiovascular: regular rate, rhythm, no JVD Peripheral Pulses: 0 Radial Pulses (R) Gastrointestinal: non tender, soft, other (Midline scar under umbilicus) Rectal: deferred Back: normal inspection, no CVA tenderness Extremities: other (Right distal forearm lateral aspect skin muscle and bone major laceration. Tourniquet just above wound) Neurologic/Psychiatric: alert, oriented x 3, other (Distal to the tourniquet discoloration of skin. Patient has motor to right fourth and fifth finger only, states he has sensation to all 5 fingers, when tested) Skin: warm/dry, other (Right distal forearm changes as noted above) Lymphatic: no adenopathy Data Review Labs Laboratory Tests 07/14/20 17:50: White Blood Count 8.7, Red Blood Count 5.02, Hemoglobin 14.8, Hematocrit 46, Mean Corpuscular Volume 91, Mean Corpuscular Hemoglobin 30, Mean Corpuscular Hemoglobin Concent 33, Red Cell Distribution Width 13.5, Platelet Count 309, Mean Platelet Volume 9.5, Prothrombin Time 14.6, INR Comment 1.1, Activated Partial Thromboplast Time 29, Sodium Level 139, Potassium Level 3.7, Chloride Level 104, Carbon Dioxide Level 26, Anion Gap 9, Blood Urea Nitrogen 11, Creatinine 1.12, Estimat Glomerular Filtration Rate > 60, BUN/Creatinine Ratio 10, Glucose Level 100, Calcium Level 8.7, Magnesium Level 2.1, Total Bilirubin 0.4, Direct Bilirubin 0.2, Indirect Bilirubin 0.2, Aspartate Amino Transf (AST/SGOT) 24, Alanine Aminotransferase (ALT/SGPT) 34, Alkaline Phosphatase 75, Total Protein 7.7, Albumin 4.0, Serum Alcohol < 10 07/14/20 18:29: Urine Color YELLOW, Urine Clarity CLEAR, Urine pH 5.5, Urine Specific [place] >=1.030, Urine Protein NEGATIVE, Urine Glucose (UA) NEGATIVE, Urine Ketones TRACEH, Urine Nitrite NEGATIVE, Urine Bilirubin NEGATIVE, Urine Urobilinogen 0.2, Urine Leukocyte Esterase NEGATIVE, Urine RBC (Auto) NEGATIVE, Urine RBC RARE, Urine WBC NONE, Urine Squamous Epithelial Cells RARE, Urine Crystals NONE, Urine Bacteria NEGATIVE, Urine Casts NONE, Urine Mucus NEGATIVE, Urine Culture Indicated NO Assessment/Plan Assessment/Plan Assessment/Plan Level 1 trauma activation Saw injury to right forearm involving skin muscle and bone-open fracture right distal radius Atrial fibrillation Long-term current anticoagulation Acute blood loss secondary to saw injury to right forearm Patient had tourniquet placed at 1742. He had a makeshift tourniquet that it worked its way into the wound which we removed which exposed the wound which is all the way down into the bone. The wound was packed with Kerlix and then wrapped. A splint was secured to the right forearm for immobilization. Patient provided pain control, tetanus, 600 clindamycin. Patient with multiple specialty needs including orthopedic, hand, vascular for possible saving function of the right distal forearm. Dr. Marrero arranged transfer to . Please see trauma flow sheet INGE VALENTIN DO Jul 14, 2020 21:31
== END 2020-07-14 19:10 | disposition short-term general hospital (02) ==
LOC: EDUNIT# 17:46 → ER 17:48
DX: S52.591A Other fractures of lower end of right radius, initial encounter for closed fracture (principal); S41.111A Laceration without foreign body of right upper arm, initial encounter; I48.91 Unspecified atrial fibrillation; J44.9 Chronic obstructive pulmonary disease, unspecified; I10 Essential (primary) hypertension; F41.9 Anxiety disorder, unspecified; F17.210 Nicotine dependence, cigarettes, uncomplicated; Z88.0 Allergy status to penicillin; Z88.8 Allergy status to other drugs, medicaments and biological substances; Z88.5 Allergy status to narcotic agent; Z20.828 Contact with and (suspected) exposure to other viral communicable diseases; Z23 Encounter for immunization; Z79.01 Long term (current) use of anticoagulants; W31.2XXA Contact with powered woodworking and forming machines, initial encounter
CPT/HCPCS: 71045; 73090; 80048; 80076; 81000; 83735; 85027; 85610; 85730; 86850; 86900; 86901; 86920; 93041; 94760; 99291; G0480; P9016; 36415; 80320; 90715

== ENCOUNTER 2020-07-23 20:48 | Emergency (ER) | payer MEDICAID ==
[~2020-07-23] VITALS: Ht 182.9 cm; Wt 102.5 kg
--- NOTE | 2020-07-23 22:09 | ED General ---
General Chief Complaint: Upper Extremity Stated Complaint: POST OP ARM INJ Nursing Triage Note: PT AMBULATES TO ROOM #5 WITH C/O R ARM DISCOMFORT. 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 DENIES THAT HE HIT HEAD OR LOC. REPORTS ON 07/14/20 HE WAS TRANSFERRED TO D/T EXTENSIVE INUJURY TO R FOREARM INVOLVING A SAW. EXPRESSES CONCERN REGARDING BLEEDING UNDER SURGICAL DRSG ET "KNOT" TO R UPPER ARM. DENIES LOSS OF SENSATION TO R DISTAL EXTREMITIES. PT DISPLAYS ABILITY TO MOVE ALL FIVE DIGITS TO R HAND WITH <3 SECOND DISTAL CAP. REFILL. A&OX4. Nursing Sepsis Screen: No Definite Risk Source of Information: Patient Exam Limitations: No Limitations History of Present Illness Date Seen by Provider: Jul 23, 2020 Time Seen by Provider: 21:05 Initial Comments This is a 54-year-old male who presents to the ER with right forearm pain. States he fell and hit his right arm on the washing machine. Reported immediate pain after injury, rated 10/10 and states it "almost dropped me to my knees". Notes he had cut his arm on 07/14 with a saw and was treated at due to almost "sawing off his arm". States he wanted to make sure everything was OK under his dressing and he was told to have it changed by professionals if it needed changed. Denies hitting head/neck, no LOC, no hip or leg complaints reported. Allergies and Home Medications Allergies Coded Allergies: Penicillins (Verified Allergy, Unknown, 06/24/18) aspirin (Verified Allergy, Unknown, 06/24/18) bee pollen (Verified Allergy, Unknown, 07/14/20) lemon (Verified Allergy, Unknown, 07/14/20) morphine (Verified Allergy, Unknown, 06/24/18) Home Medications Albuterol Sulfate 1 Puff Puff, 2 PUFF IH Q4H PRN for SHORTNESS OF BREATH, (Reported) 1 PUFF = 90 MCG Albuterol Sulfate 2.5 Mg/0.5 Ml Vial.neb, 2.5 MG INH Q6H, (Reported) Apixaban 5 Mg Tablet, 5 MG PO BID, (Reported) Atorvastatin Calcium 20 Mg Tablet, 20 MG PO DAILY, (Reported) Fluticasone/Salmeterol 1 Each Blst.w.dev, 1 EACH IH BID, (Reported) Folic Acid 1 Mg Tablet, 1 MG PO DAILY, (Reported) Meloxicam 7.5 Mg Tablet, 7.5 MG PO DAILY, (Reported) Metoprolol Tartrate 25 Mg Tablet, 25 MG PO BID, (Reported) Nicotine 1 Each Patch.td24, 1 EACH TD DAILY, (Reported) Patient Home Medication List Home Medication List Reviewed: Yes Review of Systems Review of Systems Constitutional: no symptoms reported EENTM: no symptoms reported Respiratory: no symptoms reported Cardiovascular: no symptoms reported Gastrointestinal: no symptoms reported Genitourinary: no symptoms reported Musculoskeletal: see HPI Skin: no symptoms reported Psychiatric/Neurological: No Symptoms Reported Hematologic/Lymphatic: No Symptoms Reported Immunological/Allergic: no symptoms reported Past Nvppwaa-Qsnxff-Putvia Hx Patient Social History Alcohol Use: Denies Use Number of Drinks Today: GG Alcohol Beverage of Choice: Whiskey Recreational Drug Use: No Smoking Status: Current Everyday Smoker Type Used: Cigarettes 2nd Hand Smoke Exposure: Yes Recent Foreign Travel: No Contact w/Someone Who Travel: No Recent Infectious Disease Expo: No Recent Hopitalizations: No Immunizations Up To Date Date of Influenza Vaccine: Apr 24, 2018 Seasonal Allergies Seasonal Allergies: No Past Medical History Surgeries: Yes (knee sx, ) Appendectomy, Tonsillectomy Respiratory: Yes Sleep Apnea, COPD Currently Using CPAP: No Cardiac: Yes Atrial Fibrillation, Hypertension Neurological: Yes Stroke Gastrointestinal: No Musculoskeletal: Yes Arthritis Endocrine: No Cancer: No Psychosocial: No Integumentary: Yes (rash on back) Blood Disorders: No Family Medical History No Pertinent Family Hx Physical Exam Vital Signs Vital Signs - First Documented 07/23/20 20:55 Temp 36.5 Pulse 100 Resp 18 B/P (MAP) 139/91 (107) Pulse Ox 95 O2 Delivery Room Air Capillary Refill : Less Than 3 Seconds Height, Weight, BMI Height: 6'0.00" Weight: 224lbs. 0.0oz. 101.779800mb; 30.00 BMI Method: General Appearance: No Apparent Distress, WD/WN Eyes: Bilateral Eye Normal Inspection, Bilateral Eye PERRL, Bilateral Eye EOMI HEENT: PERRL/EOMI, Normal ENT Inspection, Pharynx Normal, Moist Mucous Membranes, Other Neck: Full Range of Motion, Normal Inspection Respiratory: Lungs Clear, Normal Breath Sounds, No Accessory Muscle Use; No Wheezing Cardiovascular: Regular Rate, Rhythm, Normal Peripheral Pulses Gastrointestinal: Normal Bowel Sounds, Non Tender, Soft, Other Extremity: Normal Capillary Refill, Normal Inspection; No Normal Range of Motion (limited ROM) Neurologic/Psychiatric: Alert, Oriented x3, No Motor/Sensory Deficits Skin: Normal Color, Warm/Dry Progress/Results/Core Measures Suspected Sepsis Recent Fever Within 48 Hours: No Infection Criteria Present: None New/Unexplained Altered Menta: No Sepsis Screen: No Definite Risk SIRS Temperature: Pulse: 100 Respiratory Rate: 18 Blood Pressure 139 /91 Mean: 107 Results/Orders My Orders Orders - BROOKLYN NICOLE APRN Humerus, Right, 2 Views (07/23/20 21:19) Forearm, Right, 2 Views (07/23/20 21:19) Vital Signs/I&O 07/23/20 22:15 Temp 36.5 Pulse 82 Resp 17 B/P (MAP) 136/88 (107) Pulse Ox 97 O2 Delivery Room Air Capillary Refill : Less Than 3 Seconds Blood Pressure Mean: 107 Progress Note : Progress Note Removed current dressing and xeroform. Sutures intact, skin well approximated. No erythema, swelling or purulent drainage present. No signs of infection. Site was cleansed with normal saline, covered with new xeroform, soft-rol, posterior plaster, and candelario-wrap. Tolerated well. Reviewed radiographs, no acute fractures noted. Pending radiology review at time of discharge. Reviewed discharge POC and he is agreeable with plan. Diagnostic Imaging Diagonstic Imaging: Xray Comments NAME: [facility] REC#: [id number] PT STATUS: DEP ER : 1965 PHYSICIAN: BROOKLYN NICOLE APRN ADMIT DATE: 07/23/20/ER Draft Date of Exam:07/23/20 FOREARM, RIGHT, 2 VIEWS INDICATION: Fell on to a washer today, right arm pain. The patient had surgery in the right arm on July 14. FINDINGS: Two views of the right forearm demonstrate internal fixation plate and screw of the distal left radius. Hardware appears well aligned. Fractures are healed. Some osteophytes are present in the elbow. IMPRESSION: There are no acute osseous abnormalities. Dictated on workstation # [id number] Dict: 07/24/20618 Trans: 07/24/2025 [facility] [id number] Interpreted by: NATALIYA GARRISON MD Electronically signed by: Reviewed: Reviewed by Me Diagonstic Imaging: Xray Comments NAME: [facility] REC#: [id number] PT STATUS: DEP ER : 1965 PHYSICIAN: BROOKLYN NICOLE APRN ADMIT DATE: 07/23/20/ER Draft Date of Exam:07/23/20 HUMERUS, RIGHT, 2 VIEWS INDICATION: Fell onto washer today, right arm pain FINDINGS: 2 views of the right humerus demonstrates normal ossification. No fractures present. IMPRESSION: Normal right humerus. Dictated on workstation # [id number] Dict: 07/24/2009 Trans: 07/24/2012 [facility] [id number] Interpreted by: NATALIYA GARRISON MD Electronically signed by: Reviewed: Reviewed by Me Departure Impression Primary Impression: Contusion of forearm, right Disposition: 01 HOME, SELF-CARE Condition: Improved Departure-Patient Inst. Decision time for Depature: 22:06 Referrals: MAITE PALMER MD (PCP/Family) Primary Care Physician Patient Instructions: Contusion (DC) Add. Discharge Instructions: Plan: 1. Discharge home. 2. Keep follow-up with your [facility] provider on Wednesday as scheduled. .Continue home pain medications as provided by your doctor. 3. Keep arm elevated to prevent swelling. 4. Return for any new or concerning symptoms. All discharge instructions reviewed with patient and/or family. Voiced understanding. BROOKLYN NICOLE BUTANE COMPRESSOR OPERATOR Jul 23, 2020 22:09
[2020-07-23 22:15] VITALS: BP 136/88
--- NOTE | 2020-07-24 06:26 | Diagnostic Imaging Report ---
INDICATION: Fell on to a washer today, right arm pain. The patient had surgery in the right arm on July 14. FINDINGS: Two views of the right forearm demonstrate internal fixation plate and screw of the distal left radius. Hardware appears well aligned. Fractures are healed. Some osteophytes are present in the elbow. IMPRESSION: There are no acute osseous abnormalities. Dictated by: Dictated on workstation # [id number]
--- NOTE | 2020-07-24 07:12 | Diagnostic Imaging Report ---
INDICATION: Fell onto washer today, right arm pain FINDINGS: 2 views of the right humerus demonstrates normal ossification. No fractures present. IMPRESSION: Normal right humerus. Dictated by: Dictated on workstation # [id number]
== END 2020-07-23 22:15 | disposition home or self-care (01) ==
LOC: EDUNIT# 20:48 → ER 20:51
DX: S50.11XA Contusion of right forearm, initial encounter (principal); I48.91 Unspecified atrial fibrillation; I10 Essential (primary) hypertension; J44.9 Chronic obstructive pulmonary disease, unspecified; F17.210 Nicotine dependence, cigarettes, uncomplicated; Z88.0 Allergy status to penicillin; Z88.5 Allergy status to narcotic agent; Z88.8 Allergy status to other drugs, medicaments and biological substances; Z79.01 Long term (current) use of anticoagulants; W22.8XXA Striking against or struck by other objects, initial encounter
CPT/HCPCS: 73060; 73090

== ENCOUNTER → 2021-01-31 | Outpatient (CLI) | payer MEDICAID ==
[~2021-01-31] MED LIST changes: -FOLI1TAB24 PO; +FOLI1TAB33 PO
--- NOTE | 2021-01-31 16:37 | Diagnostic Imaging Report ---
INDICATION: COPD. COMPARISON: 07/14/2020. EXAMINATION: Frontal and lateral views of the chest were obtained. FINDINGS: There is some scarring in the anterior lung bases. Otherwise, lungs are clear. The heart is normal. There is no pneumothorax or effusion. Osseous structures are normal. IMPRESSION: No acute cardiopulmonary finding. Dictated by: Dictated on workstation # [id number]
== END ==
LOC: RAD 13:58
PROVIDERS: ATTEND Nurse Practitioner Family
DX: J44.9 Chronic obstructive pulmonary disease, unspecified (principal)
CPT/HCPCS: 71046

== ENCOUNTER → 2021-02-28 | Outpatient (CLI) | payer MEDICAID ==
[~2021-02-28] MED LIST changes: +CATHETER FLUSH 10 ML SYR IV PRN; +HOLD METFORMIN - RECEIVED CONTRAST 20 ML VIAL IV SCH; +IOHEXOL 350 MG/ML 100 ML (OMNIPAQUE 350) VIAL IV ONE; +NS 100 ML (IVPB) BAG IV ONE
[2021-02-28 10:35] LABS: CREATININE SERUM 0.91 MG/DL (0.60-1.30)
--- NOTE | 2021-02-28 11:36 | Diagnostic Imaging Report ---
PROCEDURE: CT chest with contrast only. TECHNIQUE: Multiple contiguous axial images were obtained through the chest after administration of intravenous contrast. Auto Exposure Controls were utilized during the CT exam to meet ALARA standards for radiation dose reduction. INDICATION: Shortness of breath, cough. Compared with CT screening chest 06/17/2020. FINDINGS: There is no lung mass or suspicious pulmonary nodule. No findings of pneumonia or edema. There is symmetrical air trapping and very mild biapical peripheral subpleural scarring and a greater right. There is no axillary, hilar or mediastinal lymphadenopathy and thoracic aorta patent and nonaneurysmal. There is coronary atherosclerotic vascular calcifications. There is no pleural or pericardial effusion. No acute or suspect soft tissue or osseous chest wall pathology and the visualized upper abdomen showed no acute appearing pathology. IMPRESSION: Some chronic emphysematous changes in the lungs stable, no evidence of lung cancer, pneumonia, edema, effusion or other acute abnormalities. Dictated by: Dictated on workstation # [id number]
== END ==
LOC: RAD 11:15
PROVIDERS: ATTEND Nurse Practitioner Family
DX: J43.9 Emphysema, unspecified (principal)
CPT/HCPCS: 36415; 71260; 82565; 84520

== ENCOUNTER → 2021-03-11 | Outpatient (CLI) | payer MEDICAID ==
[~2021-03-11] MED LIST changes: -CATHETER FLUSH 10 ML SYR IV PRN; -HOLD METFORMIN - RECEIVED CONTRAST 20 ML VIAL IV SCH; -IOHEXOL 350 MG/ML 100 ML (OMNIPAQUE 350) VIAL IV ONE; -NS 100 ML (IVPB) BAG IV ONE; +RT-ALBUTEROL SULF 2.5 MG/3 ML PRE-MIX VIAL INH ONE
== END ==
LOC: RT 12:45
PROVIDERS: ATTEND Nurse Practitioner Family
DX: J44.9 Chronic obstructive pulmonary disease, unspecified (principal)
CPT/HCPCS: 94060; 94726; 94729

== ENCOUNTER 2021-05-14 10:30 | Day surgery (SDC) | payer MEDICAID ==
[~2021-05-14] VITALS: Ht 182.8 cm; Wt 100.2 kg
--- OUTSIDE RECORDS SUMMARY | 2021-05-14 10:29 | XMS REPORT | Clinical Summary ---
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 If you d o not see the information that you expected, contact Release of Information in [facility] [employer] Information Management department at [phone] for further assistan ce in locating additional records.[facility] Allergies Comments Active Allergy Reactions Severity Noted Date Aspirin UNKNOWN Low 07/14/2020 Venom-Honey Bee ANAPHYLAXIS High 07/14/2020 They told me I almost had a heart attack Fentanyl SEE COMMENTS Low 07/14/2020 Lemon ANAPHYLAXIS High 07/14/2020 They told me I almost had a heart attack Morphine UNKNOWN Low 07/14/2020 Penicillin G UNKNOWN Low 07/14/2020 Medications End Date Status Medication Sig Dispensed Refills Start Date Active ALBUTEROL IN Inhale 1 puff 0 by mouth into the lungs every 4 hours as needed. Active albuterol 0.5% Inhale 2.5 mg 0 (PROVENTIL) 2.5 mg/0.5 mL solution by nebulizer solution nebulizer as directed every 6 hours. Active apixaban (ELIQUIS) 5 mg Take 5 mg by 0 tablet mouth twice daily. Active atorvastatin (LIPITOR) 20 Take 20 mg by 0 mg tablet mouth daily. Active fluticasone-salmeterol(+) Inhale 1 puff 0 (ADVAIR HFA) 115-21 by mouth into mcg/actuation inhaler the lungs twice daily. Active folic acid (FOLVITE) 1 mg Take 1 mg by 0 tablet mouth daily. Active meloxicam (MOBIC) 7.5 mg Take 7.5 mg 0 tablet by mouth daily. Active metoprolol XL (TOPROL XL) Take 25 mg by 0 25 mg extended release mouth twice tablet daily. Active NICOTINE TDIndications: Apply 1 patch 0 smoking cessation to top of skin as directed every 24 hours. Rotate patch location. Indications: stop smoking Active docusate (COLACE) 100 mg Take one 50 capsule 0 1 capsule capsule by 0 mouth twice daily as needed for Constipation. Active ondansetron (ZOFRAN) 4 mg Take one 15 tablet 0 tablet tablet by 0 mouth every 8 hours as needed. Active Problems Problem Noted Date Flexor tendon laceration of forearm with open wound, initial encounter 07/14/2020 Medical History Medical History Date Comments Arrhythmia AFIB COPD (chronic obstructive pulmonary disease) (HCC) Hypertension Hyperlipidemia TROY (obstructive sleep apnea) Social History Date Tobacco Use Types Packs/Day Years Used Current Every Day Smoker 1 Smokeless Tobacco: Current User Sex Assigned at Date Recorded Not on file Last Filed Vital Signs Reading Time Taken Comments Vital Sign 125/66 07/15/2020 1:35 PM [employer] Blood Pressure 76 07/15/2020 1:35 PM [employer] Pulse 36.9 C (98.5 F) 07/15/2020 1:35 PM [employer] Temperature - - Respiratory Rate 92% 07/15/2020 1:35 PM [employer] Oxygen Saturation - - Inhaled Oxygen Concentration 108 kg (238 lb) 09/02/2020 2:51 PM [employer]CH[employer] Weight 182.9 cm (6' 0.01") 09/02/2020 2:51 PM [employer] Height 32.27 09/02/2020 2:51 PM [employer] Body Mass Index Plan of Treatment Health Maintenance Due Date Last Done Comments HIV SCREENING 11/17/1978 DTAP/TDAP VACCINES (1 - 11/17/1981 Tdap) HEPATITIS C SCREENING 11/17/1981 PHYSICAL (COMPREHENSIVE) 11/17/1981 EXAM COLORECTAL CANCER 11/17/2013 SCREENING SHINGLES RECOMBINANT 11/17/2013 VACCINE (1 of 2) INFLUENZA VACCINE 02/23/2021 Implants Device Identifier Shelf Expiration Date Model / Serial / L ot Implanted Type Area Manufactur er 247.377 / N/A / N/A Plate 60mm Stainless Steel 2.4mm Right: Arm DEPU Y Screw Modular Mini Fragment - Sn/A [employer] Implanted: Qty: 1 on 07/14/2020 by Hira James MD at [facility] 201.762 / N/A / N/A Screw Bone 2.4mm 4mm 12mm Lcp Right: Arm DEPUY Stainless Steel T8 Low Profile - [employer] Sn/A Implanted: Qty: 1 on 07/14/2020 by Hira James MD at [facility] 201.764 / N/A / N/A Screw Bone 2.4mm 4mm 14mm Lcp Right: Arm DEPUY Stainless Steel T8 Low Profile - [employer] Sn/A Implanted: Qty: 1 on 07/14/2020 by Hira James MD at [facility] 201.766 / N/A / N/A Screw Bone 2.4mm 4mm 16mm Lcp Right: Arm DEPUY Stainless Steel Radius Cortex - [employer] Sn/A Implanted: Qty: 2 on 07/14/2020 by Hira James MD at [facility] Results Not on filefrom Last 3 Months Insurance Type Payer Benefit Subscriber ID Effective Phone Address Plan / Dates Group Medicaid [employer] [employer] [id number] 2018-P 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 necessary based on Dx
[~2021-05-14 10:30] MED LIST changes: -RT-ALBUTEROL SULF 2.5 MG/3 ML PRE-MIX VIAL INH ONE
[2021-05-14] MEDS ORDERED: LIDOCAINE 1% INJ 20 ML 20 ML VIAL ONE (10:59)
[2021-05-14 11:05] VITALS: BP 140/86
[2021-05-14] MEDS ORDERED: LIDOCAINE 1% INJ 20 ML 20 ML VIAL INJ ONE (11:15)
--- NOTE | 2021-05-14 11:54 | Implantation of Loop Monitor ---
Implant of Loop Monitior IMPLANTATION OF LOOP MONITOR REPORT DATE OF PROCEDURE: 05/14/21 PREOP DIAGNOSIS: Paroxysmal atrial fibrillation POSTOP DIAGNOSIS: Paroxysmal atrial fibrillation PROCEDURE DETAILS: The patient is a 55 male with history of paroxysmal atrial fibrillation requiring long-term surveillance, patient reporting history of ablation in the past done at an outside institution but the records are not available. Therefore implantable loop recorder was discussed and agreed with the patient. Informed consent was taken. All risks and complications were discussed at length. The patient was draped and prepped in the usual sterile fashion. Local anesthesia was lidocaine, which was given in the substernal area close to the 4th intercostal space. Loop monitor [employer] with serial [id number] was implanted according to the protocol. Steri-Strips were placed at the end of the procedure. There were no complications and the patient tolerated the procedure well. ANESTHESIA: Local anesthesia with lidocaine. COMPLICATIONS: None CONTRAST/FLUOROSCOPY: None CONCLUSION: Successful implantation of loop monitor with no complication FINAL DIAGNOSIS: Paroxysmal atrial fibrillation Palpitation Hypertension CRISTHIAN WEBB MD May 14, 2021 11:54
== END 2021-05-14 14:10 | disposition home or self-care (01) ==
LOC: CATH 10:30
PROVIDERS: ATTEND Internal Medicine Cardiovascular Disease
DX: I48.0 Paroxysmal atrial fibrillation (principal); I25.10 Atherosclerotic heart disease of native coronary artery without angina pectoris; I10 Essential (primary) hypertension; R07.9 Chest pain, unspecified; E78.2 Mixed hyperlipidemia; F41.9 Anxiety disorder, unspecified; M19.90 Unspecified osteoarthritis, unspecified site; I65.23 Occlusion and stenosis of bilateral carotid arteries; E78.5 Hyperlipidemia, unspecified; E66.9 Obesity, unspecified; Z68.30 Body mass index [BMI] 30.0-30.9, adult; R73.03 Prediabetes; F17.210 Nicotine dependence, cigarettes, uncomplicated; Z88.6 Allergy status to analgesic agent; Z86.73 Personal history of transient ischemic attack (TIA), and cerebral infarction without residual deficits; Z79.899 Other long term (current) drug therapy; G47.33 Obstructive sleep apnea (adult) (pediatric); J44.9 Chronic obstructive pulmonary disease, unspecified; Z88.8 Allergy status to other drugs, medicaments and biological substances; Z88.5 Allergy status to narcotic agent
CPT/HCPCS: 33285; C1764

== ENCOUNTER → 2021-05-20 | Outpatient (CLI) | payer MEDICAID | LOC: CARD 14:00 | PROVIDERS: ATTEND Physician Assistant | DX: I10 Essential (primary) hypertension (principal); I25.10 Atherosclerotic heart disease of native coronary artery without angina pectoris | CPT/HCPCS: 93306 ==

== ENCOUNTER → 2021-06-11 | Outpatient (CLI) | payer MEDICAID ==
[~2021-06-11] MED LIST changes: +CATHETER FLUSH 10 ML SYR IV PRN
[2021-06-11 09:20] VITALS: BP 110/77
--- NOTE | 2021-06-11 13:35 | Cardiology Stress Test Report ---
Stress Test Report Date of Procedure/Referring: Date of Procedure: Jun 11, 2021 Rebecca Adorno Admitting Physician Renuka Hughes MD Indications: HTN Baseline Heart Rate: 71 Baseline Blood Pressure: Blood Pressure Systolic: 110 Blood Pressure Diastolic: 77 Vital Signs Date Time Temp Pulse Resp B/P (MAP) Pulse Ox O2 Delivery O2 Flow Rate FiO2 06/11/21 09:20 80 18 110/77 (88) 97 Room Air Baseline Vital Signs Vital Signs Date Time Temp Pulse Resp B/P (MAP) Pulse Ox O2 Delivery O2 Flow Rate FiO2 06/11/21 09:20 80 18 110/77 (88) 97 Room Air Baseline EKG: Baseline EKG: NSR Summary: 6After explaining the procedure and details to the patient, he signed the consent and was brought to the stress nuclear laboratory. Patient exercised on standard Jalil protocol, EKG, heart rate and blood pressure were monitored continuously, resting and stress doses of radio tracer were injected, imaging was acquired and reviewed in the short axis, horizontal long axis and vertical long axis views Patient was able to exercise for a total of 6 minutes on Jalil protocol, METs 7.3 Maximum heart rate 134 Maximum blood pressure 187/86 Stress EKG, Minimal nondiagnostic changes Recovery EKG, Return to baseline TID: 1.07 SSS: 9 SDS: 0 EF: 49 Conclusion: 1. Fair exercise tolerance for a total of 6 minutes, 7.3 METS on standard Jalil protocol achieving 82% of maximal expected heart rate 2. Appropriate heart rate and blood pressure response to exercise return to ba seline during recovery 3. Diaphragmatic attenuation with decreased uptake involving the whole inferior wall and inferolateral wall with mild reversibility, suspicious of underlying coronary artery disease 4. Normal left ventricular size with normal contractility, minimal hypokinesia noted at the inferior lateral wall, ejection fraction 49% CRISTHIAN WEBB MD Jun 11, 2021 13:35
== END ==
LOC: CARD 07:45
PROVIDERS: ATTEND Physician Assistant
DX: I10 Essential (primary) hypertension (principal); I25.10 Atherosclerotic heart disease of native coronary artery without angina pectoris
CPT/HCPCS: 78452; 93017; A9502

== ENCOUNTER 2021-06-25 06:06 | Day surgery (SDC) | payer MEDICAID ==
[~2021-06-25] VITALS: Ht 182.8 cm; Wt 101.2 kg
[2021-06-25] VITALS (11 sets, daily range): BP systolic 110–143; BP diastolic 68–100
[~2021-06-25 06:06] MED LIST changes: -CATHETER FLUSH 10 ML SYR IV PRN
[2021-06-25] MEDS ORDERED: HEParin (CATH LAB) 2,000 ML IV ONE (06:51)
[2021-06-25] MEDS ORDERED: NS IV 1000 ML 1,000 ML ONE (06:51)
[2021-06-25] MEDS ORDERED: LIDOCAINE 1% INJ 20 ML 20 ML VIAL ONE (06:51)
[2021-06-25] MEDS ORDERED: NS IV 1000 ML 1,000 ML IV SCH ×2 (07:00→09:00)
[2021-06-25 07:13] LABS: HEMATOCRIT 48 % (40-54); HEMOGLOBIN 15.7 g/dL (13.3-17.7); MEAN CORPUSCULAR HEMOGLOBIN 29 pg (25-34); MEAN CORPUSCULAR HGB CONC 33 g/dL (32-36); MEAN CORPUSCULAR VOLUME 90 fL (80-99); MEAN PLATELET VOLUME 9.1 fL (9.0-12.2); PLATELET COUNT 293 10^3/uL (130-400); WHITE BLOOD COUNT 8.6 10^3/uL (4.3-11.0)
[2021-06-25 07:33] LABS: BILIRUBIN,TOTAL 0.3 MG/DL (0.1-1.0); CREATININE SERUM 0.99 MG/DL (0.60-1.30); TOTAL PROTEIN 7.5 GM/DL (6.4-8.2)
[2021-06-25 07:42] LABS: INR 1.1 (0.8-1.4); PROTHROMBIN TIME PATIENT 14.6 SEC (12.2-14.7)
--- NOTE | 2021-06-25 07:42 | Diagnostic Imaging Report ---
INDICATION: Abnormal stress test. Chest pain. Comparison with 07/14/2020. FINDINGS: Portable chest shows lungs to be well aerated and clear. The heart is not enlarged. There is no pulmonary edema. No hilar adenopathy. No pneumothorax or pleural effusion. The watch and clock repair clerk has been implanted on the left. IMPRESSION: The watch and clock repair clerk now present on the left otherwise negative chest. Dictated by: Dictated on workstation # [id number]
[2021-06-25] MEDS ORDERED: fentaNYL INJ 100 MCG/2 ML AMP ONE (07:49)
[2021-06-25] MEDS ORDERED: MIDAZOLAM 5 MG/5 ML (VERSED) VIAL ONE (07:50)
[2021-06-25] MEDS ORDERED: LISI10TA25 PO (07:54)
[2021-06-25] MEDS ORDERED: FLUT9.9S NS (07:54)
[2021-06-25] MEDS ORDERED: OXYC1TAB16 PO (07:54)
[2021-06-25] MEDS ORDERED: ATOR40TA70 PO (07:54)
[2021-06-25] MEDS ORDERED: MONT-40 PO (07:54)
[2021-06-25] MEDS ORDERED: ALBU2.5V4 INH (07:57)
--- NOTE | 2021-06-25 08:29 | Conscious Sedation/ASA ---
Conscious Sedation Pre-Proced Time 08:29 ASA Score 3 For ASA 3 and 4: Consider anesthesia and medical clearance. Also, for patients with a history of failed moderate sedation consider anesthesia. Airway Lungs Heart ASA score ASA 1: a normal healthy patient ASA 2: a patient with a mild systemic disease (mid diabetes, controlled hypertension, obesity x ASA 3: a patient with a severe systemic disease that limits activity (angina, COPD, prior Myocardial infarction) ASA 4: a patient with an incapacitating disease that is a constant threat to life (CHF, renal failure) ASA 5: a moribund patient not expected to survive 24 hrs. (ruptured aneurysm) ASA 6: a declared brain- patient whose organs are being harvested. For emergent operations, add the letter E after the classification Mallampati Classification Grade 3 Sedation Plan Analgesia, Amnesia, Plan communicated to team members, Discussed options with patient/fam, Discussed risks with patient/fam The patient is an appropriate candidate to undergo the planned procedure, sedation, and anesthesia. The patient immediately re-assessed prior to indication. CRISTHIAN WEBB MD Jun 25, 2021 08:29
--- NOTE | 2021-06-25 08:52 | Discharge Inst-Post CATH ---
Discharge Inst-CATH/EP Problems Reviewed?: Yes Post Cardiac Cath/EP D/C Inst Follow Up/Plan Appointment with Dr. Escobar's office in 2 to 4 weeks <b>CARDIAC CATH/EP PROCEDURE DISCHARGE INSTRUCTIONS</b> ACTIVITY * Go Home directly and rest. * Limit activity of the leg (or wrist if it was used) for 7 days including aer obics, swimming, jogging, bicycling, etc. * Restrict stair-climbing for 7 days if possible, if not, climb up with your non-cath leg, then bring together on the same step. * Avoid lifting, pushing, pulling or excessive movement of the affected extremi ty for 7 days. * Customary sexual activity may be resumed after 2 days-use caution not to use a position that strains or causes pain to the affected extremity. * No driving for 24 hours. * NO SMOKING. * Avoid straining for bowel movements for 7 days. * Gentle walking on level ground is allowed. * Returning to work will depend on the type of procedure and the results. Your doctor will discuss this with you. CALL YOUR DOCTOR FOR ANY OF THE FOLLOWING: *If bleeding from the puncture site occurs- Apply gentle pressure to site with clean cloth and call your doctor or EMS. * If a knot or lump forms under the skin, increases in size, or causes pain. * If bruising appears to be worsening or moving further down your leg instead of disappearing. * Temperature above 101 F. CARE OF YOUR GROIN INCISION; * Bruising or purple discoloration of the skin near the puncture site is common. * You may shower only, no bathtub bathing for 5 days. Be careful to avoid slipping as your leg may feel stiff. * If a closure device was used on your femoral artery, please see the attached guide regarding care of the device and your leg. * Leave dressing on FOR 24 hours. CARE OF YOUR WRIST INCISION; * Bruising or purple discoloration of the skin near the puncture site is common. * You may shower. * DO NOT submerge wrist. * Leave dressing on FOR 24 hours. CRISTHIAN ESCOBAR MD Jun 25, 2021 08:52
--- NOTE | 2021-06-25 08:57 | Cardiac Cath Report ---
Cardiac Cath Report Physician (s)/Twist Tester (s) Physician CRISTHIAN WEBB MD Pre-Procedure Diagnosis Pre-Procedure Diagnosis: Coronary artery disease Post-Procedure Note Procedure Start Date: Jun 25, 2021 Name of Procedure: Left heart catheterization Findings/Procedure Note PROCEDURE NOTE: 55 years old gentleman with history of hypertension, hyperlipidemia, has been having chest pain, had an abnormal stress test with inferior wall ischemia. Scheduled for cardiac catheterization possible PTCA. After explaining the procedure to the patient, all pros and cons were explained, all questions were answered. The patient signed the consent and then he was placed on the cardiac catheterization laboratory. Groin was prepped SL fashion local anesthesia was used. Sheath placed in the right femoral artery. Tulio right and left catheter were used to access the coronary system. Tulio right was used to access the left ventricular cavity. Left ventriculogram was not done, pressure was measured At the end of the procedure the sheath was removed. Closure device was deployed FINDINGS: Hemodynamics LV 108/16, end-diastolic pressure of 16 Aorta 106/63 mean of 79 ANATOMY: Left Main is free of obstructive disease Left Anterior Descending has mild disease nonobstructive disease Left Circumflex has mild disease nonobstructive disease Right Coronary Artery has mild disease nonobstructive disease was not done, pressure was measured LV Gram was not done CONCLUSION: 1. Mild coronary artery disease nonobstructive disease 2. Normal left ventricular end-diastolic pressure DISCUSSION AND RECOMMENDATION: Abnormal stress test is probably due to extracardiac attenuation, medical therapy is recommended no intervention is needed Anesthesia Type: Conscious Sedation Estimated blood loss (mL): 10 ml Contrast Amount: 29 ml Total Radiation Dose: 303 mGy Post-Procedure Diagnosis Post-operative diagnosis: Chest pain Coronary artery disease Hypertension Hyperlipidemia CRISTHIAN WEBB MD Jun 25, 2021 08:57
[2021-06-25] MEDS ORDERED: PATIENT MAY USE OWN MEDS, ALL PO SCH (09:00)
== END 2021-06-25 13:10 | disposition home or self-care (01) ==
LOC: CATH 06:06 → SDC 09:11 → CATH 13:10
PROVIDERS: ATTEND Internal Medicine Cardiovascular Disease
DX: I25.10 Atherosclerotic heart disease of native coronary artery without angina pectoris (principal); I10 Essential (primary) hypertension; E78.5 Hyperlipidemia, unspecified; E78.2 Mixed hyperlipidemia; E66.9 Obesity, unspecified; G47.33 Obstructive sleep apnea (adult) (pediatric); I48.20 Chronic atrial fibrillation, unspecified; Z86.73 Personal history of transient ischemic attack (TIA), and cerebral infarction without residual deficits; J44.9 Chronic obstructive pulmonary disease, unspecified; F17.210 Nicotine dependence, cigarettes, uncomplicated; I65.23 Occlusion and stenosis of bilateral carotid arteries; Z68.30 Body mass index [BMI] 30.0-30.9, adult; R73.03 Prediabetes; M19.90 Unspecified osteoarthritis, unspecified site; F41.9 Anxiety disorder, unspecified; Z88.5 Allergy status to narcotic agent; Z79.899 Other long term (current) drug therapy; Z11.2 Encounter for screening for other bacterial diseases
CPT/HCPCS: 36430; 71045; 80053; 80061; 85027; 85610; 85730; 87081; 93458; C1760; C1894; 36415

== ENCOUNTER 2022-02-16 18:51 | Emergency (ER) | payer MEDICAID ==
[~2022-02-16] VITALS: Ht 182.8 cm; Wt 101.2 kg
[~2022-02-16 18:51] MED LIST changes: +ALBU2.5V4 INH; +ATOR40TA70 PO; +FLUT9.9S NS; +LISI10TA25 PO; +MONT-40 PO; +OXYC1TAB16 PO
[2022-02-16] MEDS ORDERED: CLINDAMYCIN 600 MG/50 ML IVPB 50 ML IV ONE (19:15)
--- NOTE | 2022-02-16 19:15 | ED Integumentary General ---
General Chief Complaint: General Problems/Pain Stated Complaint: RASH ALL OVER BODY Source: patient Exam Limitations: no limitations History of Present Illness Date Seen by Provider: Feb 16, 2022 Time Seen by Provider: 19:11 Initial Comments Patient is a 56-year-old male with a history of COPD, coronary artery disease who presents ED with diffuse rash. Rash started on his chest 2 weeks ago with some redness and crusting. This has spread throughout the body notable on his neck, back, upper extremities. Denies of any trauma. Denies any fever. Started feeling sick 2 days ago with vomiting 4-5 episodes specially with eating. Denies any diarrhea. Denies bodyaches chills. Has not been able to sleep secondary to the rash. Denies applying topical antibiotic ointment or taking anything orally for the rash. Denies any possible exposure to anything outside. Denies history of MRSA. Denies chest pain, abdominal pain, headache, dizziness. Patient reports a chronic cough with a history of smoking. Does do breathing treatments at home for his COPD. Allergies and Home Medications Allergies Coded Allergies: Penicillins (Verified Allergy, Unknown, 06/24/18) aspirin (Verified Allergy, Unknown, 06/24/18) bee pollen (Verified Allergy, Unknown, 07/14/20) lemon (Verified Allergy, Unknown, 07/14/20) morphine (Verified Allergy, Unknown, 06/24/18) Patient Home Medication List Home Medication List Reviewed: Yes Albuterol Sulfate (Proair Hfa) 1 Puff Puff, 2 PUFF IH Q4H PRN for SHORTNESS OF BREATH, (Reported) Entered as Reported by: HUNTER JOE on 06/24/18 1143 Albuterol Sulfate (Albuterol Sulfate) 2.5 Mg/3 Ml Vial.neb, 2.5 MG INH BID PRN for SHORTNESS OF BREATH, (Reported) Entered as Reported by: ANU BAUM on 06/25/21 0757 Atorvastatin Calcium (Atorvastatin Calcium) 40 Mg Tablet, 40 MG PO DAILY, (Reported) Entered as Reported by: ANU BAUM on 06/25/21 075 Doxycycline Monohydrate (Doxycycline Monohydrate) 100 Mg Tablet, 100 MG PO BID Prescribed by: VALERIE NOLASCO on 02/16/222032 Fluticasone Propionate (Flonase Allergy Relief) 9.9 Ml [place].susp, 2 SPRAY NS DAILY, (Reported) Entered as Reported by: ANU BAUM on 06/25/21753 Folic Acid (Folic Acid) 1 Mg Tablet, 1 MG PO DAILY, (Reported) Entered as Reported by: HUNTER JOE on 06/24/18 114 Lisinopril (Lisinopril) 10 Mg Tablet, 10 MG PO DAILY, (Reported) Entered as Reported by: ANU BAUM on 06/25/21753 Metoprolol Tartrate (Metoprolol Tartrate) 25 Mg Tablet, 25 MG PO BID, (Reported) Entered as Reported by: HUNTER JOE on 06/24/18 114 Montelukast Sodium (Montelukast Sodium) 10 Mg Tablet, 10 MG PO DAILY, (Reported) Entered as Reported by: ANU BAUM on 06/25/21753 Neomycin Contreras/Bacitrac Zn/Poly (Neosporin Ointment) 3.5 Mg-400 Unit-5,000 Unit/Gram Oint...g., 28.3 GM TP BID Prescribed by: VALERIE NOLASCO on 02/16/222035 Oxycodone HCl/Acetaminophen (Percocet 7.5-325 mg Tablet) 1 Each Tablet, 1 TAB PO BID PRN for PAIN-MODERATE (5-7), (Reported) Entered as Reported by: ANU BAUM on 06/25/21753 Review of Systems Review of Systems Constitutional: No chills, No diaphoresis, No malaise, No weakness EENTM: No ear pain, No blurred vision, No double vision, No mouth pain, No mouth swelling, No throat pain, No throat swelling Respiratory: No cough, No short of breath Cardiovascular: No chest pain, No edema Gastrointestinal: No abdominal pain, No diarrhea, No nausea, No vomiting Genitourinary: No decreased output, No discharge Musculoskeletal: No back pain, No joint pain Skin: No change in color, No change in hair/nails All Other Systems Reviewed Negative Unless Noted: Yes Past Rccdbfu-Hhzbgj-Gzfgdd Hx Seasonal Allergies Seasonal Allergies: No Past Medical History Surgeries: Yes (knee sx, ) Appendectomy, Tonsillectomy Respiratory: Yes Sleep Apnea, COPD Currently Using CPAP: No Cardiac: Yes Atrial Fibrillation, Hypertension Neurological: Yes Stroke Gastrointestinal: No Musculoskeletal: Yes Arthritis Endocrine: No Cancer: No Psychosocial: No Integumentary: Yes (rash on back) Blood Disorders: No Family Medical History No Pertinent Family Hx Physical Exam Vital Signs Vital Signs - First Documented 02/16/22 19:00 Temp 37.0 Pulse 94 Resp 18 B/P (MAP) 154/98 (116) Pulse Ox 95 Capillary Refill : General Appearance: WD/WN, no apparent distress HEENT: PERRL/EOMI, normal ENT inspection, TMs normal, pharynx normal Neck: non-tender, full range of motion, supple Cardiovascular: no edema, no gallop, tachycardia Respiratory: chest non-tender, lungs clear, normal breath sounds, no respiratory distress Gastrointestinal: normal bowel sounds, non tender, soft Back: no CVA tenderness, no vertebral tenderness Extremities: normal range of motion, non-tender Neurologic/Psychiatric: product transfer pumper II-XII nml as tested, no motor/sensory deficits, alert, normal mood/affect, oriented x 3 Skin: other (Diffuse erythematous crusty rash. Mild purulent drainage from a few lesions. Large crusty rash to the lower back, neck. Lesions noted to the chest, upper extremities no fluctuant mass) Progress/Results/Core Measures Results/Orders Lab Results Laboratory Tests Test 02/16/22 19:20 Range/Units White Blood Count 10.6 4.3-11.0 10^3/uL Red Blood Count 5.05 4.30-5.52 10^6/uL Hemoglobin 14.6 13.3-17.7 g/dL Hematocrit 45 40-54 % Mean Corpuscular Volume 89 80-99 fL Mean Corpuscular Hemoglobin 29 25-34 pg Mean Corpuscular Hemoglobin Concent 33 32-36 g/dL Red Cell Distribution Width 13.3 10.0-14.5 % Platelet Count 327 130-400 10^3/uL Mean Platelet Volume 9.1 9.0-12.2 fL Immature Granulocyte % (Auto) 0 % Neutrophils (%) (Auto) 68 42-75 % Lymphocytes (%) (Auto) 18 12-44 % Monocytes (%) (Auto) 11 0-12 % Eosinophils (%) (Auto) 2 0-10 % Basophils (%) (Auto) 0 0-10 % Neutrophils # (Auto) 7.3 1.8-7.8 10^3/uL Lymphocytes # (Auto) 1.9 1.0-4.0 10^3/uL Monocytes # (Auto) 1.2 H 0.0-1.0 10^3/uL Eosinophils # (Auto) 0.2 0.0-0.3 10^3/uL Basophils # (Auto) 0.0 0.0-0.1 10^3/uL Immature Granulocyte # (Auto) 0.0 0.0-0.1 10^3/uL Erythrocyte Sedimentation Rate 43 H 0-30 MM/HR Sodium Level 138 135-145 MMOL/L Potassium Level 3.8 3.6-5.0 MMOL/L Chloride Level 103 98-107 MMOL/L Carbon Dioxide Level 24 21-32 MMOL/L Anion Gap 11 5-14 MMOL/L Blood Urea Nitrogen 8 7-18 MG/DL Creatinine 0.89 0.60-1.30 MG/DL Estimat Glomerular Filtration Rate 99 BUN/Creatinine Ratio 9 Glucose Level 100 70-105 MG/DL Lactic Acid Level 1.08 0.50-2.00 MMOL/L Calcium Level 8.5 8.5-10.1 MG/DL Corrected Calcium 8.7 8.5-10.1 MG/DL Total Bilirubin 0.5 0.1-1.0 MG/DL Aspartate Amino Transf (AST/SGOT) 18 5-34 U/L Alanine Aminotransferase (ALT/SGPT) 27 0-55 U/L Alkaline Phosphatase 57 40-136 U/L C-Reactive Protein High Sensitivity 5.92 H 0.00-0.50 MG/DL Total Protein 7.6 6.4-8.2 GM/DL Albumin 3.8 3.2-4.5 GM/DL My Orders Orders - JEFRY PICKETT Cbc With Automated Diff (02/16/22 19:09) Comprehensive Metabolic Panel (02/16/22 19:09) Hs C Reactive Protein (02/16/22 19:09) Blood Culture (02/16/22 19:09) Lactic Acid Analyzer (02/16/22 19:09) Iv/Invasive Line Insertion .IV start (02/16/22 19:09) Wound Culture (02/16/22 19:09) Clindamycin 600 Mg/50 Ml Ivpb (Cleocin P (7/25/22 19:15) Erythrocyte Sedimentation Rate (02/16/22 20:00) Medications Given in ED Current Medications Medications Dose Ordered Sig/Yoel Route Start Time Stop Time Status Last Admin Dose Admin Clindamycin Phosphate/Dextrose 50 ml @ 100 mls/hr ONCE ONCE IV 02/16/22 19:15 02/16/22 19:44 DC 02/16/22 20:00 100 MLS/HR Vital Signs/I&O 02/16/22 19:00 Temp 37.0 Pulse 94 Resp 18 B/P (MAP) 154/98 (116) Pulse Ox 95 Departure Communication (PCP) Patient has a diffuse purulent crusty erythematous odor rash. Started on his chest states he had a few blisters to became purulent. This started 2 weeks ago with a diffuse spread. Purulent drainage noted around the neck and back. No oral lesions. Denies history of autoimmune disease. Denies history of MRSA. Reported fever at home. Denies of any anti-inflammatories. Has been taking oxycodone. [place] sick over the past 2 days with vomiting not able to eat. Patie nt on arrival no acute distress. Due to slightly tachycardic and rash blood cultures was ordered as well as lab work. Normal white blood count. Slight elevated CRP and ESR. No oral lesions. No sloughing of the skin such as Lerner-Trey's syndrome or epidermal necrolysis. No antibiotic use. Wound culture was obtained. Was started on IV clindamycin. Allergic to penicillins. Blood culture pending with normal lactic acid. Rash smells infectious to me. Patient would likely benefit with antibiotic to cover MRSA. Will discharge with doxycycline for 10 days. Would likely benefit following up with wound care for lesion debridement as needed. Discussed bandage over the larger wounds. Topical Neosporin twice a day. Discussed daily wound cares. If any worsening rash to return back to ED for further evaluation. Discussed potential causes of pemphigus or pemphigoid but states there was no blisters except when initially started on his chest. It appears that this is more infectious etiology then autoimmune however if further need evaluation may need to consider biopsy and further evaluation at a burn unit Impression Primary Impression: Rash Disposition: 01 HOME, SELF-CARE Condition: Stable Departure-Patient Inst. Decision time for Depature: 20:32 Referrals: MAITE PALMER MD (PCP/Family) Primary Care Physician Patient Instructions: Skin Rash ED Add. Discharge Instructions: Take antibiotics as prescribed. May consider applying topical Neosporin with wound dressing. Strongly recommend following up with wound care [phone]. Follow-up with your PCP within the next week. All discharge instructions reviewed with patient and/or family. Voiced understanding. Scripts Neomycin Contreras/Bacitrac Zn/Poly (Neosporin Ointment) 3.5 Mg-400 Unit-5,000 Unit/Gram Oint...g. 28.3 GM TP BID for Rash, #3 EA Prov: JEFRY PICKETT 02/16/22 Doxycycline Monohydrate (Doxycycline Monohydrate) 100 Mg Tablet 100 MG PO BID for 10 Days, #20 TAB Prov: JEFRY PICKETT 02/16/22 JEFRY PICKETT Feb 16, 2022 19:15
[2022-02-16 19:37] LABS: BASOPHILS % (AUTO) 0 % (0-10); EOSINOPHILS # (AUTO) 0.2 10^3/uL (0.0-0.3); EOSINOPHILS % (AUTO) 2 % (0-10); HEMATOCRIT 45 % (40-54); HEMOGLOBIN 14.6 g/dL (13.3-17.7); LYMPHOCYTES # (AUTO) 1.9 10^3/uL (1.0-4.0); LYMPHOCYTES % (AUTO) 18 % (12-44); MEAN CORPUSCULAR HEMOGLOBIN 29 pg (25-34); MEAN CORPUSCULAR HGB CONC 33 g/dL (32-36); MEAN CORPUSCULAR VOLUME 89 fL (80-99); MEAN PLATELET VOLUME 9.1 fL (9.0-12.2); MONOCYTES # (AUTO) 1.2 10^3/uL (0.0-1.0); MONOCYTES % (AUTO) 11 % (0-12); NEUTROPHILS # (AUTO) 7.3 10^3/uL (1.8-7.8); NEUTROPHILS % (AUTO) 68 % (42-75); PLATELET COUNT 327 10^3/uL (130-400); WHITE BLOOD COUNT 10.6 10^3/uL (4.3-11.0)
[2022-02-16 20:05] LABS: ALBUMIN 3.8 GM/DL (3.2-4.5); BILIRUBIN,TOTAL 0.5 MG/DL (0.1-1.0); CALCIUM 8.5 MG/DL (8.5-10.1); CREATININE SERUM 0.89 MG/DL (0.60-1.30); POTASSIUM 3.8 MMOL/L (3.6-5.0); TOTAL PROTEIN 7.6 GM/DL (6.4-8.2)
[2022-02-16] MEDS ORDERED: DOXY100T31 PO (20:33)
[2022-02-16] MEDS ORDERED: NEOM28.33 TP (20:36)
[2022-02-16 20:55] VITALS: BP 120/74
== END 2022-02-16 20:55 | disposition home or self-care (01) ==
LOC: EDUNIT# 18:51 → ER 18:54
DX: R21 Rash and other nonspecific skin eruption (principal); J44.9 Chronic obstructive pulmonary disease, unspecified; Z79.899 Other long term (current) drug therapy
CPT/HCPCS: 36415; 80053; 83605; 85025; 85652; 86141; 87040; 87070; 87077; 87205

== ENCOUNTER → 2022-02-19 | Outpatient (CLI) | payer MEDICAID ==
[~2022-02-19] MED LIST changes: +DOXY100T31 PO; +NEOM28.33 TP
== END ==
LOC: WOUNDCARE 12:49
PROVIDERS: ATTEND Family Medicine
DX: L20.9 Atopic dermatitis, unspecified (principal); B95.61 Methicillin susceptible Staphylococcus aureus infection as the cause of diseases classified elsewhere; B95.0 Streptococcus, group A, as the cause of diseases classified elsewhere; B37.2 Candidiasis of skin and nail
CPT/HCPCS: 11104; 87101; G0463

== ENCOUNTER 2022-03-28 19:18 | Emergency (ER) | payer MEDICAID ==
[~2022-03-28] VITALS: Ht 183 cm; Wt 99.4 kg
[2022-03-28] MEDS ORDERED: CEFEPIME INJECTION 1,000 MG in NS (IVPB) 50 ML IV ONE (19:30)
[2022-03-28] MEDS ORDERED: ACETAMINOPHEN 500 MG TAB (TYLENOL) PO PRN (19:30)
[2022-03-28] MEDS ORDERED: NS IV 1000 ML 1,000 ML IV SCH (19:30)
--- NOTE | 2022-03-28 19:35 | ED General ---
General Chief Complaint: Respiratory Problems Stated Complaint: FEVER,SOA Nursing Triage Note: FEVER, INCREASED SOA X3-4 HRS Source of Information: Patient, EMS Exam Limitations: No Limitations History of Present Illness Date Seen by Provider: Mar 28, 2022 Time Seen by Provider: 19:18 Initial Comments Patient to the ER by EMS from home with he lives alone with chief complaint that he is having worsening shortness of air and fevers chills and cough since about 4:00 PM today. He has a history of COPD and uses oxygen 1/2 L by nasal cannula as necessary. Has been off and on it lately. He has breathing treatments but has not used them today. He has COPD and emphysema. He has a history of atrial fibrillation but does not know if he has coronary disease or stents. He says he has had heart catheterizations before. He is not having any nausea or vomiting. He has not taken antipyretics. EMS started an IV and a liter of fluids. He is not having any diarrhea or chills. He had a swab for COVID couple days ago which was negative. He says the heart catheterization was done in [place], [place]. He is followed by Dr. Escobar and Dr. Palmer locally. He smokes about 3 packs cigarettes per day Heart catheterization [address] Escobar demonstrated mild nonobstructive coronary disease with a normal left ventricular end-diastolic pressure. Allergies and Home Medications Allergies Coded Allergies: Penicillins (Verified Allergy, Unknown, 06/24/18) aspirin (Verified Allergy, Unknown, 06/24/18) bee pollen (Verified Allergy, Unknown, 07/14/20) lemon (Verified Allergy, Unknown, 07/14/20) morphine (Verified Allergy, Unknown, 06/24/18) Patient Home Medication List Home Medication List Reviewed: Yes Albuterol Sulfate (Proair Hfa) 1 Puff Puff, 2 PUFF IH Q4H PRN for SHORTNESS OF BREATH, (Reported) Entered as Reported by: HUNTER JOE on 06/24/18 1143 Albuterol Sulfate (Albuterol Sulfate) 2.5 Mg/3 Ml Vial.neb, 2.5 MG INH BID PRN for SHORTNESS OF BREATH, (Reported) Entered as Reported by: ANU BAUM on 06/25/21 0377 Atorvastatin Calcium (Atorvastatin Calcium) 40 Mg Tablet, 40 MG PO DAILY, (Reported) Entered as Reported by: ANU BAUM on 06/25/21753 Doxycycline Monohydrate (Doxycycline Monohydrate) 100 Mg Tablet, 100 MG PO BID Prescribed by: VALERIE NOLASCO on 02/16/222032 Fluticasone Propionate (Flonase Allergy Relief) 9.9 Ml [place].susp, 2 SPRAY NS DAILY, (Reported) Entered as Reported by: ANU BAUM on 06/25/21753 Folic Acid (Folic Acid) 1 Mg Tablet, 1 MG PO DAILY, (Reported) Entered as Reported by: HUNTER JOE on 06/24/18 114 Lisinopril (Lisinopril) 10 Mg Tablet, 10 MG PO DAILY, (Reported) Entered as Reported by: ANU BAUM on 06/25/21753 Metoprolol Tartrate (Metoprolol Tartrate) 25 Mg Tablet, 25 MG PO BID, (Reported) Entered as Reported by: HUNTER JOE on 06/24/18 114 Montelukast Sodium (Montelukast Sodium) 10 Mg Tablet, 10 MG PO DAILY, (Reported) Entered as Reported by: ANU ABUM on 06/25/21753 Neomycin Contreras/Bacitrac Zn/Poly (Neosporin Ointment) 3.5 Mg-400 Unit-5,000 Unit/Gram Oint...g., 28.3 GM TP BID Prescribed by: VALERIE NOLASCO on 02/16/222035 Oxycodone HCl/Acetaminophen (Percocet 7.5-325 mg Tablet) 1 Each Tablet, 1 TAB PO BID PRN for PAIN-MODERATE (5-7), (Reported) Entered as Reported by: ANU BAUM on 06/25/21753 Review of Systems Review of Systems Constitutional: chills, fever, malaise EENTM: No ear discharge, No ear pain Respiratory: cough; No phlegm; short of breath; No wheezing Cardiovascular: No chest pain, No edema; Hx of Intervention; No palpitations Gastrointestinal: No abdominal pain, No nausea, No vomiting Genitourinary: No dysuria, No frequency, No hematuria Musculoskeletal: No back pain, No gout, No joint swelling All Other Systems Reviewed Negative Unless Noted: Yes Past Vvfcstk-Clesvz-Scozup Hx Patient Social History Tobacco Use?: Yes Substance use?: No Alcohol Use?: No Pt feels they are or have been: No Immunizations Up To Date First/Initial COVID19 Vaccinat: 2020 Second COVID19 Vaccination Avelino: 2020 Third COVID19 Vaccination Date: 2020 Seasonal Allergies Seasonal Allergies: No Past Medical History Surgery/Hospitalization HX: COPD, CAD, AFIB, HTN, TROY, CVA, APPY, T/A Surgeries: Yes (knee sx, ) Appendectomy, Tonsillectomy Respiratory: Yes Sleep Apnea, COPD Currently Using CPAP: No Cardiac: Yes Atrial Fibrillation, Hypertension Neurological: Yes Stroke Gastrointestinal: No Musculoskeletal: Yes Arthritis Endocrine: No Cancer: No Psychosocial: No Integumentary: Yes (rash on back) Blood Disorders: No Family Medical History No Pertinent Family Hx Physical Exam-Suspected Sepsis Physical Exam Vital Signs Vital Signs - First Documented 03/28/22 19:25 Temp 39.2 Pulse 125 Resp 18 B/P (MAP) 142/88 (106) Pulse Ox 94 O2 Delivery Room Air Capillary Refill : Less Than 3 Seconds Blood Pressure Mean: 106 Height, Weight, BMI Height: 6'0.00" Weight: 224lbs. 0.0oz. 101.268998on; 29.00 BMI Method: General Appearance: Anxious, Chronically ill, Moderate Distress Eyes: Bilateral Eye Normal Inspection, Bilateral Eye PERRL, Bilateral Eye EOMI HEENT: PERRL/EOMI, TMs Normal, Normal ENT Inspection, Pharynx Normal; No Moist Mucous Membranes Neck: Full Range of Motion, Normal Inspection Respiratory: Lungs Clear, No Respiratory Distress (Respiratory rate 22, oxygen saturations 94 to 96% on room air), Decreased Breath Sounds (Significantly decreased all lung jeffries) Cardiovascular: Regular Rate, Rhythm, Normal Peripheral Pulses Gastrointestinal: Normal Bowel Sounds, Non Tender, Soft Extremity: Normal Capillary Refill, Normal Inspection, No Pedal Edema Neurologic/Psychiatric: Alert, Oriented x3, No Motor/Sensory Deficits, Normal Mood/Affect Skin: normal color, warm/dry Focused Exam Lactate Level 03/28/22 19:26: Lactic Acid Level 1.30 Lactic Acid Level Laboratory Tests Test 03/28/22 19:26 Lactic Acid Level 1.30 MMOL/L (0.50-2.00) Progress/Results/Core Measures Suspected Sepsis SIRS Temperature: Pulse: 125 Respiratory Rate: 18 Laboratory Tests 03/28/22 19:26: White Blood Count 6.5 Blood Pressure 142 /88 Mean: 106 03/28/22 19:26: Lactic Acid Level 1.30 Laboratory Tests 03/28/22 19:26: Creatinine 0.94, INR Comment 1.2, Platelet Count 262, Total Bilirubin 0.3 Results/Orders Lab Results Laboratory Tests Test 03/28/22 19:26 Range/Units White Blood Count 6.5 4.3-11.0 10^3/uL Red Blood Count 4.61 4.30-5.52 10^6/uL Hemoglobin 13.2 L 13.3-17.7 g/dL Hematocrit 40 40-54 % Mean Corpuscular Volume 87 80-99 fL Mean Corpuscular Hemoglobin 29 25-34 pg Mean Corpuscular Hemoglobin Concent 33 32-36 g/dL Red Cell Distribution Width 13.5 10.0-14.5 % Platelet Count 262 130-400 10^3/uL Mean Platelet Volume 9.1 9.0-12.2 fL Immature Granulocyte % (Auto) 0 % Neutrophils (%) (Auto) 80 H 42-75 % Lymphocytes (%) (Auto) 6 L 12-44 % Monocytes (%) (Auto) 10 0-12 % Eosinophils (%) (Auto) 4 0-10 % Basophils (%) (Auto) 0 0-10 % Neutrophils # (Auto) 5.2 1.8-7.8 10^3/uL Lymphocytes # (Auto) 0.4 L 1.0-4.0 10^3/uL Monocytes # (Auto) 0.7 0.0-1.0 10^3/uL Eosinophils # (Auto) 0.2 0.0-0.3 10^3/uL Basophils # (Auto) 0.0 0.0-0.1 10^3/uL Immature Granulocyte # (Auto) 0.0 0.0-0.1 10^3/uL Neutrophils % (Manual) 82 % Lymphocytes % (Manual) 5 % Monocytes % (Manual) 10 % Eosinophils % (Manual) 3 % Blood Morphology Comment NORMAL Prothrombin Time 15.1 H 12.2-14.7 SEC INR Comment 1.2 0.8-1.4 Activated Partial Thromboplast Time 28 24-35 SEC Blood Gas Puncture Site LEFT RAD Blood Gas Patient Temperature 38.2 Arterial Blood pH 7.39 7.37-7.43 Arterial Blood Partial Pressure CO2 43 35-45 MMHG Arterial Blood Partial Pressure O2 81 79-93 MMHG Arterial Blood HCO3 24 23-27 MMOL/L Arterial Blood Total CO2 25.6 21.0-31.0 MMOL/L Arterial Blood Oxygen Saturation 96 94-100 % Arterial Blood Base Excess 0.5 -2.5-2.5 MMOL/L Juwan Test YES-POS Blood Gas Ventilator Setting NO Blood Gas Inspired Oxygen ROOM AIR Sodium Level 134 L 135-145 MMOL/L Potassium Level 3.9 3.6-5.0 MMOL/L Chloride Level 102 98-107 MMOL/L Carbon Dioxide Level 23 21-32 MMOL/L Anion Gap 9 5-14 MMOL/L Blood Urea Nitrogen 11 7-18 MG/DL Creatinine 0.94 0.60-1.30 MG/DL Estimat Glomerular Filtration Rate 94 BUN/Creatinine Ratio 12 Glucose Level 101 70-105 MG/DL Lactic Acid Level 1.30 0.50-2.00 MMOL/L Calcium Level 8.3 L 8.5-10.1 MG/DL Corrected Calcium 8.8 8.5-10.1 MG/DL Total Bilirubin 0.3 0.1-1.0 MG/DL Aspartate Amino Transf (AST/SGOT) 22 5-34 U/L Alanine Aminotransferase (ALT/SGPT) 24 0-55 U/L Alkaline Phosphatase 54 40-136 U/L Troponin I < 0.028 <0.028 NG/ML B-Type Natriuretic Peptide 16.5 <100.0 PG/ML Total Protein 7.7 6.4-8.2 GM/DL Albumin 3.4 3.2-4.5 GM/DL Influenza Type A (RT-PCR) Not Detected Not Detecte Influenza Type B (RT-PCR) Not Detected Not Detecte SARS-CoV-2 RNA (RT-PCR) Detected H Not Detecte My Orders Orders - GENE PALENCIA Cbc With Automated Diff (03/28/22 19:27) Comprehensive Metabolic Panel (03/28/22 19:27) Blood Culture (03/28/22 19:27) Sputum Culture (03/28/22 19:27) Urinalysis (03/28/22 19:27) Urine Culture (03/28/22 19:27) Protime With Inr (03/28/22:) Partial Thromboplastin Time (03/28/22 19:) Chest 1 View, Ap/Pa Only (03/28/22:) Acetaminophen Tablet (Tylenol Tablet) (03/28/22 19:30) Ed Iv/Invasive Line Start (03/28/22:27) Ed Iv/Invasive Line Start (03/28/22:) Ekg Tracing (03/28/22:) Troponin I [place] (03/28/22:) Vital Signs Adult Sepsis Patie Q15M (03/28/22 19:27) O2 (03/28/22:) Remove Rings In Anticipation O (03/28/22:) Lactic Acid Analyzer (03/28/22:) Ns Iv 1000 Ml (Sodium Chloride 0.9%) (03/28/22 19:30) Cefepime Injection (Maxipime Injection) (03/28/22:30) Vancomycin Injection (Vancomycin Injecti (03/28/22:30) Bnp [place] (03/28/22:) Covid 19 Inhouse Test (03/28/22:) Influenza A And B By Pcr (03/28/22:) Arterial Blood Gas (03/28/22:) Manual Differential (03/28/22 19:26) Albuterol/Ipra Inhalation Soln (Duoneb I (03/28/22 20:00) Svn Small Volume Nebulizer (03/28/22 19:49) Rx-Nirmatrelvir/Ritonavir(Eua) (Rx-Paxlo (03/28/22 21:00) Medications Given in ED Current Medications Medications Dose Ordered Sig/Yoel Route Start Time Stop Time Status Last Admin Dose Admin Acetaminophen 1,000 mg ONCE PRN PO 03/28/22 19:30 03/28/22 20:02 DC 03/28/22 20:01 1,000 MG Albuterol/ Ipratropium 3 ml ONCE ONCE INH 03/28/22 20:00 03/28/22 20:01 DC 03/28/22 19:56 3 ML Cefepime HCl 1000 mg/Sodium Chloride 50 ml @ 100 mls/hr ONCE ONCE IV 03/28/22 19:30 03/28/22 19:59 DC 03/28/22 20:02 100 MLS/HR Vital Signs/I&O 03/28/22 03/28/22 03/28/22 03/28/22 19:25 19:25 19:57 20:01 Temp 39.2 39.2 Pulse 125 Resp 18 B/P (MAP) 142/88 (106) Pulse Ox 94 95 O2 Delivery Room Air Room Air Room Air Capillary Refill : Less Than 3 Seconds Blood Pressure Mean: 106 Progress Note #1: Time: 19:35 Progress Note Septic work-up. ABG and a DuoNeb. COVID and flu. Progress Note #2: Time: 20:57 Progress Note Blood work and ABG are unremarkable. Patient not having any wheezing just diminished breath sounds. DuoNeb did not do much to help him. He is still satting in the mid 90s, heart rate slightly improved after some fluids. Good blood pressure and a septic vital signs other than the tachycardia and fever on arrival. We gave him a gram of Tylenol. We will give him some Paxlovid and return precautions. The patient has been speaking in full sentences since arrival, talking on his phone and has demonstrated no significant signs of short ness of air. He is on room air. He has had no material deterioration his ER stay. ECG Initial ECG Impression Date: Mar 28, 2022 Initial ECG Impression Time: 19:41 Initial ECG Rate: 116 Initial ECG Rhythm: S.Tach Initial ECG Intervals: Normal Initial ECG Impression: Normal Comment Sinus tachycardia with occasional PVC. No clinically relevant ST elevation or depression. Diagnostic Imaging Diagonstic Imaging: Xray Plain Films/CT/US/NM/MRI: chest Comments [email or web address] [place], [place] NAME: BAR CAR[facility] REC#: [id number] PT STATUS: REG ER : 1965 PHYSICIAN: GENE PALENCIA MD ADMIT DATE: 03/28/22/ER Draft Date of Exam:03/28/22 CHEST 1 VIEW, AP/PA ONLY CLINICAL INDICATION: Patient with fever and increased shortness of air x 3-4 hours. EXAM: Portable chest x-ray upright view. COMPARISON: Chest x-ray dated 06/25/2021. FINDINGS: Lungs/pleura: Lungs are clear. There is no pneumothorax. There is no pleural effusion. Mediastinum: Unremarkable. Pulmonary vasculature: Unremarkable. Heart: Heart size is within normal limits. Loop recorder is seen overlying the left chest. Bones/extrathoracic soft tissue: There are degenerative spurs involving the spine. IMPRESSION: There is no radiographic evidence of acute cardiopulmonary process. Dictated on workstation # [id number] Dict: 03/28/222011 Trans: 03/28/222015 PJE [id number] Interpreted by: RAHEEM PEREZ MD Electronically signed by: Reviewed: Reviewed by Me Departure Impression Primary Impression: COVID-19 Disposition: 01 HOME, SELF-CARE Condition: Stable Departure-Patient Inst. Decision time for Depature: 21:11 Referrals: MAITE PALMER MD (PCP/Family) Primary Care Physician Patient Instructions: COVID-19 Overview, Nirmatrelvir and Ritonavir FDA Fact Sheet Add. Discharge Instructions: Drink lots of fluids. Tylenol 1000 mg every 8 hours as needed for fevers chills or body aches. Take Paxlovid twice a day for the next 5 days to prevent worsening COVID-19 symptoms. This will help reduce the length of time and severity of your infection. Ondansetron 1 tablet under the tongue every 6 hours as needed for nausea and/or vomiting Return to the ER for severely worsening symptoms to be reevaluated. You may also follow-up with your primary care doctor as necessary for symptom management. All discharge instructions reviewed with patient and/or family. Voiced understanding. Scripts Ondansetron (Ondansetron Odt) 4 Mg Tab.rapdis 4 MG PO Q6H PRN for NAUSEA/VOMITING, #8 TAB 0 Refills Prov: GENE PALENCIA 03/28/22 GENE PALENCIA Mar 28, 2022 19:35
[2022-03-28 19:37] LABS: ABG BASE EXCESS 0.5 MMOL/L (-2.5-2.5); ABG OXYGEN SATURATION 96 % (94-100); ABG PCO2 43 MMHG (35-45); ABG PH 7.39 (7.37-7.43); ABG PO2 81 MMHG (79-93); ABG TCO2 25.6 MMOL/L (21.0-31.0); ALLENS TEST YES-POS; INSPIRED O2 ROOM AIR; PATIENT TEMP 38.2; VENTILATOR NO
[2022-03-28 19:38] LABS: BASOPHILS % (AUTO) 0 % (0-10); EOSINOPHILS # (AUTO) 0.2 10^3/uL (0.0-0.3); EOSINOPHILS % (AUTO) 4 % (0-10); HEMATOCRIT 40 % (40-54); HEMOGLOBIN 13.2 g/dL (13.3-17.7); LYMPHOCYTES # (AUTO) 0.4 10^3/uL (1.0-4.0); LYMPHOCYTES % (AUTO) 6 % (12-44); MEAN CORPUSCULAR HEMOGLOBIN 29 pg (25-34); MEAN CORPUSCULAR HGB CONC 33 g/dL (32-36); MEAN CORPUSCULAR VOLUME 87 fL (80-99); MEAN PLATELET VOLUME 9.1 fL (9.0-12.2); MONOCYTES # (AUTO) 0.7 10^3/uL (0.0-1.0); MONOCYTES % (AUTO) 10 % (0-12); NEUTROPHILS # (AUTO) 5.2 10^3/uL (1.8-7.8); NEUTROPHILS % (AUTO) 80 % (42-75); PLATELET COUNT 262 10^3/uL (130-400); WHITE BLOOD COUNT 6.5 10^3/uL (4.3-11.0)
[2022-03-28] MEDS ORDERED: RT-ALBUTEROL/IPRATROPIUM 3 ML (DUONEB) VIAL INH ONE (20:00)
[2022-03-28] MEDS: VANCOMYCIN INJECTION 1,000 MG in NS (IVPB) 250 ML IV SCH ×2 (20:01→20:56)
[2022-03-28 20:02] LABS: INR 1.2 (0.8-1.4); PROTHROMBIN TIME PATIENT 15.1 SEC (12.2-14.7)
[2022-03-28 20:03] LABS: ALANINE AMINOTRANSFERASE 24 U/L (0-55); ALBUMIN 3.4 GM/DL (3.2-4.5); ALKALINE PHOSPHATASE 54 U/L (40-136); BILIRUBIN,TOTAL 0.3 MG/DL (0.1-1.0); BUN/CREATININE RATIO 12; CALCIUM 8.3 MG/DL (8.5-10.1); CARBON DIOXIDE 23 MMOL/L (21-32); CHLORIDE 102 MMOL/L (98-107); CREATININE SERUM 0.94 MG/DL (0.60-1.30); GFR ESTIMATED 94; GLUCOSE 101 MG/DL (70-105); POTASSIUM 3.9 MMOL/L (3.6-5.0); SODIUM 134 MMOL/L (135-145); TOTAL PROTEIN 7.7 GM/DL (6.4-8.2)
[2022-03-28 20:12] LABS: EOSINOPHILS % (MANUAL) 3 %; LYMPHOCYTES % (MANUAL) 5 %; MONOCYTES % (MANUAL) 10 %; NEUTROPHILS % (MANUAL) 82 %; RBC MORPH NORMAL
--- NOTE | 2022-03-28 20:16 | Diagnostic Imaging Report ---
CLINICAL INDICATION: Patient with fever and increased shortness of air x 3-4 hours. EXAM: Portable chest x-ray upright view. COMPARISON: Chest x-ray dated 06/25/2021. FINDINGS: Lungs/pleura: Lungs are clear. There is no pneumothorax. There is no pleural effusion. Mediastinum: Unremarkable. Pulmonary vasculature: Unremarkable. Heart: Heart size is within normal limits. Loop recorder is seen overlying the left chest. Bones/extrathoracic soft tissue: There are degenerative spurs involving the spine. IMPRESSION: There is no radiographic evidence of acute cardiopulmonary process. Dictated by: Dictated on workstation # [id number]
[2022-03-28] MEDS ORDERED: RX-NIRMATRELVIR/RITONAVIR (PAXLOVID) #30 TABS PO SCH (21:00)
[2022-03-28] MEDS ORDERED: ONDA4TAB11 PO (21:12)
[2022-03-28 21:18] VITALS: BP 122/73
== END 2022-03-28 21:26 | disposition home or self-care (01) ==
LOC: EDUNIT# 19:18 → ER 19:19
DX: U07.1 COVID-19 (principal); Z87.09 Personal history of other diseases of the respiratory system; Z99.81 Dependence on supplemental oxygen
CPT/HCPCS: 36415; 71045; 80053; 82805; 83605; 83880; 84484; 85007; 85027; 85610; 85730; 87040; 87636; 93005; 94640

== ENCOUNTER 2022-06-03 05:38 | Outpatient (CLI) | payer MEDICAID ==
[~2022-06-03] VITALS: Ht 182.9 cm; Wt 103.7 kg
[~2022-06-03 05:38] MED LIST changes: +ALBU8.5H6 IH; +ONDA4TAB11 PO; -RT-ALBUINH IH
[2022-06-03] MEDS ORDERED: APIX5TAB PO (11:46)
[2022-06-03] MEDS ORDERED: CLOB15CR3 TP (11:46)
[2022-06-03] MEDS ORDERED: PRED10TA22 PO (11:46)
[2022-06-03] MEDS ORDERED: FLUC100T10 PO (11:47)
== END 2022-06-03 11:48 | disposition home or self-care (01) ==
LOC: PREOP 05:38
PROVIDERS: ATTEND Surgery
DX: Z01.818 Encounter for other preprocedural examination (principal)

== ENCOUNTER 2022-06-16 07:29 | Day surgery (SDC) | payer MEDICAID ==
[~2022-06-16] VITALS: Ht 182.9 cm; Wt 103.7 kg
[~2022-06-16 07:29] MED LIST changes: +CLOB15CR3 TP; +FLUC100T10 PO; +PRED10TA22 PO
[2022-06-16] MEDS ORDERED: LACTATED RINGERS 1,000 ML IV STA (07:34)
[2022-06-16] MEDS ORDERED: HURRICAINE EXT TUBE (BENZOCAINE) XX PRN (07:45)
[2022-06-16 07:47] VITALS: BP 134/93
[2022-06-16] MEDS ORDERED: PROPOFOL INJECTION 50 ML IV ONE (08:19)
--- NOTE | 2022-06-16 08:57 | Discharge Inst-Simple/Standard ---
Discharge Inst-Standard Patient Instructions/Follow Up Plan of Care/Instructions/FU: f/u with Dr. Boone in 2 weeks Activity as Tolerated: Yes Discharge Diet: No Restrictions, Regular Diet INGE BOONE DO Jun 16, 2022 08:57
[2022-06-16 09:05] VITALS: BP 116/62
[2022-06-16 09:10] VITALS: BP 112/60
[2022-06-16 09:15] VITALS: BP 104/55
[2022-06-16 09:52] VITALS: BP 104/55
--- NOTE | 2022-06-16 14:25 | Anesthesia-General Post-Op ---
MAC Patient Condition Mental Status/LOC: Same as Preop Cardiovascular: Satisfactory Nausea/Vomiting: Absent Respiratory: Satisfactory Pain: Controlled Complications: Absent Post Op Complications Complications None Follow Up Care/Instructions Patient Instructions None needed. Anesthesiology Discharge Order Discharge Order Patient is doing well, no complaints, stable vital signs, no apparent adverse anesthesia problems. No complications reported per nursing. KALYAN GORMAN CRNA Jun 16, 2022 14:25
--- NOTE | 2022-06-16 19:13 | OPERATIVE REPORT ---
DATE OF SERVICE: 06/16/2022 PREOPERATIVE DIAGNOSES: Gastroesophageal reflux disease, history of polyps. PROCEDURES: EGD with biopsies, flexible sigmoidoscopy. SURGEON: Inge Boone DO ANESTHESIA: Per BINDING END STITCHER. ESTIMATED BLOOD LOSS: None. COMPLICATIONS: None. INDICATIONS: The patient is a 56-year-old male, needing EGD and colonoscopy. He understands risks and benefits of procedure and wishes to proceed. Consent was signed in the chart. DESCRIPTION OF PROCEDURE: The patient was taken to endoscopy suite, placed in left lateral recumbent position. Timeout was performed. The scope was inserted, the mouth, down the esophagus, stomach and duodenum without difficulty. No polyps, masses or ulcerations within the duodenum. Scope was retracted back into the stomach where it was further insufflated. No polyps, masses or ulcerations. Biopsies of the antrum was obtained. Scope was retroflexed, noting a very small hiatal hernia. No other pathology. Scope was returned to its normal position, slowly withdrawn to distal esophagus. Biopsy of the GE junction was obtained. No polyps, masses or ulcerations. Scope was slowly retracted back until completely removed. Digital rectal exam was performed. No palpable polyps, masses or ulcerations except stool within the rectal vault. Scope was inserted into the rectum, inserted to be advanced through the rectum and into the sigmoid, which still continued to have a significant amount of stool burden. Therefore, scope was then slowly retracted back, some polyps were present, but due to the significant stool load, did not try to remove these at this time. Scope was then slowly retracted back until completely removed. The patient tolerated the procedure well without complications. He was taken to recovery room in stable condition. RECOMMENDATIONS: The patient will need colonoscopy, which we will reschedule in the next few weeks. He will need a 2-day prep. We will go over the pathology results and explained the 2-day prep prior to scheduling. Job ID: [id number] DocumentID: [id number] Dictated Date: 06/16/2022 08:59:19 Form Setter Steel Pan Forms Date: 06/16/2022 19:11:00 Dictated By: INGE BOONE DO
== END 2022-06-16 10:35 | disposition home or self-care (01) ==
LOC: ENDO 07:29
PROVIDERS: ATTEND Surgery
DX: K21.00 Gastro-esophageal reflux disease with esophagitis, without bleeding (principal); Z86.010 Personal history of colon polyps; F17.210 Nicotine dependence, cigarettes, uncomplicated

== ENCOUNTER 2022-07-09 05:33 | Outpatient (CLI) | payer MEDICAID ==
[~2022-07-09] VITALS: Ht 182.9 cm; Wt 103.7 kg
== END 2022-07-09 11:41 ==
LOC: PREOP 05:33
PROVIDERS: ATTEND Surgery
DX: Z01.818 Encounter for other preprocedural examination (principal); Z80.0 Family history of malignant neoplasm of digestive organs

== ENCOUNTER 2022-07-16 12:08 | Day surgery (SDC) | payer MEDICAID ==
[~2022-07-16] VITALS: Ht 182.9 cm; Wt 103.7 kg
[2022-07-16] MEDS ORDERED: LACTATED RINGERS 1,000 ML IV ONE (12:52)
[2022-07-16] MEDS ORDERED: LACTATED RINGERS 1,000 ML IV STA (13:22)
[2022-07-16 13:29] VITALS: BP 126/88
--- NOTE | 2022-07-16 14:22 | Progress Note-Pre Operative ---
Pre-Operative Progress Note Date of Available H&P: Jul 01, 2022 Date H&P Reviewed: Jul 16, 2022 Time H&P Reviewed: 14:21 History & Physical: H&P Reviewed, Patient Examed, No changes noted Pre-Operative Diagnosis: FHx Colon Cancer INGE VALENTIN DO Jul 16, 2022 14:22
[2022-07-16] MEDS ORDERED: MIDAZOLAM 2 MG/2 ML (VERSED) VIAL ONE (15:32)
[2022-07-16] MEDS ORDERED: PROPOFOL INJECTION 50 ML IV ONE (15:32)
--- NOTE | 2022-07-16 16:23 | Anesthesia-General Post-Op ---
MAC Patient Condition Mental Status/LOC: Same as Preop Cardiovascular: Satisfactory Nausea/Vomiting: Absent Respiratory: Satisfactory Pain: Controlled Complications: Absent Post Op Complications Complications None Follow Up Care/Instructions Patient Instructions None needed. Anesthesiology Discharge Order Discharge Order Patient is doing well, no complaints, stable vital signs, no apparent adverse anesthesia problems. No complications reported per nursing. JARVIS BARNES CRNA Jul 16, 2022 16:23
[2022-07-16 16:25] VITALS: BP 142/77
--- NOTE | 2022-07-16 16:25 | Progress Note-Post Operative ---
Post-Operative Progess Note Surgeon (s)/Crepe Sole Wire Brusher (s) Surgeon INGE VALENTIN DO Crepe Sole Wire Brusher: na Pre-Operative Diagnosis FHx Colon Cancer Post-Operative Diagnosis colon polyps Procedure & Operative Findings Date of Procedure 07/16/22 Procedure Performed/Findings colonoscopy c hot bx polypectomy x 8 and fulguration rectal polyps x 6 Anesthesia Type per auto adjudication specialist Estimated Blood Loss Estimated blood loss (mL): none Specimens/Packing Specimens Removed colon polyps INGE VALENTIN DO Jul 16, 2022 16:25
--- NOTE | 2022-07-16 16:26 | Discharge Inst-Simple/Standard ---
Discharge Inst-Standard Patient Instructions/Follow Up Plan of Care/Instructions/FU: 2 weeks Paolo vasquez 2more days. Activity as Tolerated: Yes Discharge Diet: Regular Diet INGE VALENTIN DO Jul 16, 2022 16:26
[2022-07-16 16:30] VITALS: BP 141/68
[2022-07-16 16:45] VITALS: BP 141/68
[2022-07-16 17:20] VITALS: BP 141/68
--- NOTE | 2022-07-16 19:52 | OPERATIVE REPORT ---
DATE OF SERVICE: 07/16/2022 PREOPERATIVE DIAGNOSIS: Family history of colon cancer. POSTOPERATIVE DIAGNOSIS: Colon polyps. PROCEDURE: Colonoscopy with hot biopsy polypectomy x8 and fulguration x6. SURGEON: Inge Boone DO ANESTHESIA: Per MECHANICAL DRAWING TEACHER. ESTIMATED BLOOD LOSS: None. COMPLICATIONS: None. INDICATIONS: The patient is a 56-year-old male, needing colonoscopy for family history. He understands the risks and benefits of procedure and wishes to proceed. Consent was signed and in chart. DESCRIPTION OF PROCEDURE: The patient was taken to endoscopy suite, placed in left lateral recumbent position. Timeout was performed. Digital rectal exam was performed. No palpable polyps, masses or ulcerations. The scope was inserted in the rectum and advanced was all the way to the cecum with minimal difficulty. Prep was adequate. Scope was slowly retracted back. No polyps, masses, ulcerations in the cecum. In the ascending colon, a small polyp was present, which hot biopsy polypectomy was performed. Scope was then continued slowly retracted back to the transverse colon where another polyp was present, which hot biopsy polypectomy was performed. No polyps, masses, ulcerations in the descending colon. Scope was continuously slowly retracted back in sigmoid colon where 4 polyps were present, which hot biopsy polypectomies were performed. Scope was then continued slowly retracted back to the rectum where 2 polyps were present, which hot biopsy polypectomy was performed. There were 6 small polyps within the rectum, which were fulgurated. Scope was inserted and retracted to couple times and then slowly retracted to completely remove. The patient tolerated the procedure well without complications, taken to recovery room in stable condition. RECOMMENDATIONS: The patient depending on pathology. would recommend repeat colonoscopy in 1-3 years. Any issues before that be seen at that time. Follow up in the office in 2 weeks to discuss pathology results. Job ID: [id number] DocumentID: [id number] Dictated Date: 07/16/2022 16:29:58 Merchandising Manager Date: 07/16/2022 19:50:00 Dictated By: INGE BOONE DO
== END 2022-07-16 17:20 | disposition home or self-care (01) ==
LOC: ENDO 12:08
PROVIDERS: ATTEND Surgery
DX: Z12.11 Encounter for screening for malignant neoplasm of colon (principal); D12.2 Benign neoplasm of ascending colon; D12.8 Benign neoplasm of rectum; K63.5 Polyp of colon; F17.210 Nicotine dependence, cigarettes, uncomplicated; E66.9 Obesity, unspecified; K21.00 Gastro-esophageal reflux disease with esophagitis, without bleeding; Z80.0 Family history of malignant neoplasm of digestive organs; Z68.31 Body mass index [BMI] 31.0-31.9, adult